=== PATIENT | female | born 1950 | race Caucasian/White ===

== ENCOUNTER 2021-06-09 10:10 | Inpatient (IN) | payer OTHER ==
[2021-06-09] VITALS (32 sets, daily range): BP systolic 66–142; BP diastolic 28–83
[~2021-06-09] VITALS: Ht 170.2 cm; Wt 162.3 kg
[2021-06-09 11:00] LABS: Basophils # (auto) 0.1 10 ^3/uL (0-0.2); Basophils % (auto) 0.3 % (0.0-2.0); Eosinophils # (auto) 0 10 ^3/uL (0-0.8); Hematocrit 35.4 % (36.0-46.0); Hemoglobin 10.6 g/dL (12.2-16.2); Lymphocytes # (auto) 0.2 10 ^3/uL (0.4-5.4); Lymphocytes % (auto) 1.3 % (10.0-50.0); Mean Corpuscular Hgb Conc. 29.9 g/dL (32.0-36.0); Mean Corpuscular Volume 86.8 fL (80.0-100.0); Monocytes # (auto) 1.1 10 ^3/uL (0-1.3); Neutrophils % (auto) 92.4 % (37.0-80.0); Nucleated Red Blood Cells % 0.1 %; Red Blood Cells 4.08 10^6/uL (4.0-5.20); Red Cell Distribution Width 18.6 % (11.8-14.3); White Blood Cell 18.4 10^3/uL (4.4-10.8)
[2021-06-09] MEDS ORDERED: SUCCINYLCHOLINE CHLORIDE 20 MG/ML 10ML VIAL IV ONE ×6 (11:08→19:15)
[2021-06-09] MEDS ORDERED: ETOMIDATE (2MG/ML) 20ML VIAL IV ONE ×3 (11:08→15:15)
[2021-06-09] MEDS ORDERED: MIDAZOLAM DRIP 50 mg/50mL 50 ML IV ONE (11:09)
[2021-06-09] MEDS ORDERED: NOREPINEPHRINE 8 MG/250ML KIT 0 ML IV ONE (11:09)
[2021-06-09 11:18] LABS: Albumin 2.5 g/dL (3.4-5.0); Calcium 8.9 mg/dL (8.5-10.1); Potassium 4.7 mmol/L (3.5-5.1)
[2021-06-09 11:23] LABS: BUN/Creatinine Ratio 22.2; Bilirubin, Total 0.7 mg/dL (0.2-1.0); Total Protein 7.3 g/dL (6.4-8.2)
[2021-06-09] MEDS ORDERED: FUROSEMIDE 20 MG/2 ML VIAL IV ONE (11:30)
[2021-06-09] MEDS ORDERED: FUROSEMIDE 40 MG/4 ML VIAL IV ONE (11:30)
[2021-06-09] MEDS ORDERED: cefTRIAXone 1GM/50ML D5W 50 ML IV ONE (11:30)
[2021-06-09] MEDS ORDERED: SODIUM CHLORIDE 0.9% 500 ML IVB ONE (11:30)
[2021-06-09 12:07] LABS: Urine Bacteria FEW /hpf (None Seen); Urine Blood 2+ /uL (Negative); Urine Hyaline Cast FEW /lpf (0 - 2); Urine Mucus FEW (None Seen); Urine Specific Gravity 1.023 (1.001-1.035); Urine WBC 3 /hpf (0 - 5)
[2021-06-09] MEDS ORDERED: MORPHINE SULFATE INJECTION 2 MG/ML SYRG IV PRN ×3 (13:30→16:30)
[2021-06-09] MEDS ORDERED: NITROGLYCERIN 0.4 MG SL TAB SL PRN ×2 (13:30→16:30)
[2021-06-09] MEDS ORDERED: NOREPINEPHRINE 8 MG/250ML KIT 250 ML IV ONE (14:39)
[2021-06-09] MEDS: MIDAZOLAM DRIP 50 mg/50mL 50 ML IV SCH ×3 (14:41→21:03)
[2021-06-09] MEDS ORDERED: PROPOFOL 100 ML IV ONE (14:41)
[2021-06-09] MEDS: fentaNYL Drip 2500mCg/250mlNS 250 ML IV SCH ×2 (14:41→15:15)
[2021-06-09] MEDS: PROPOFOL 100 ML IV SCH ×4 (14:41→22:54)
[2021-06-09] MEDS ORDERED: fentaNYL Drip 2500mCg/250mlNS 250 ML IV ONE (15:11)
[2021-06-09] MEDS ORDERED: DEXTROSE (50%) 50ML SYRG IV PRN (16:15)
[2021-06-09] MEDS: SODIUM CHLORIDE 0.9% 1,000 ML IV SCH (16:15)
[2021-06-09] MEDS ORDERED: FAMOTIDINE (10MG/ML) 2ML VL IV ONE (16:15)
[2021-06-09] MEDS ORDERED: ALBUTEROL SULF 2.5 MG/0.5ML(0.5%) NEB SOLN NEB ONE (16:15)
[2021-06-09] MEDS ORDERED: methylPREDNISolone SOD SUCC 125 MG/2 ML VL IV ONE (16:15)
[2021-06-09] MEDS ORDERED: hydrALAZINE HCL 20 MG/ML VL IV PRN (16:15)
[2021-06-09] MEDS ORDERED: ACETAMINOPHEN 325 MG TAB PO PRN ×2 (16:15→16:30)
[2021-06-09] MEDS ORDERED: IPRATROPIUM BROM 0.5 MG/2.5ML INH SOL NEB ONE (16:15)
[2021-06-09] MEDS ORDERED: BUDESONIDE (INHALATION) 0.5 MG/2 ML NEB NEB ONE (16:15)
[2021-06-09] MEDS ORDERED: VANCOMYCIN PER PHARMACY 1,000 MG IV SCH (16:15)
[2021-06-09] MEDS ORDERED: MORPHINE SULFATE 4 MG/ML SYR/VIAL IV PRN (16:15)
[2021-06-09] MEDS ORDERED: LORazepam 2MG/ML-1ML VIAL IV PRN (16:15)
[2021-06-09] MEDS ORDERED: LORazepam 0.5 MG TAB PO PRN (16:30)
[2021-06-09] MEDS ORDERED: HYDROcodone-ACET 5/325MG TAB PO PRN (16:30)
[2021-06-09] MEDS ORDERED: DOCUSATE SOD 100 MG CAP PO PRN (16:30)
[2021-06-09] MEDS ORDERED: ONDANSETRON HCL 4 MG/2 ML VIAL IV PRN (16:30)
[2021-06-09] MEDS ORDERED: ALUM & MAG HYDROX-SIMETH LIQ(MAALOX) 30 ML PO PRN (16:30)
[2021-06-09] MEDS ORDERED: MIDAZOLAM DRIP 50 mg/50mL 50 ML IV SCH (16:45)
[2021-06-09] MEDS ORDERED: VANCOMYCIN 1GM/250ML 250 ML IV SCH (17:00)
[2021-06-09] MEDS: ACCU-CHEK COMFORT CURVE STRIP VI SCH ×2 (17:00→21:43)
[2021-06-09] MEDS: InsuLIN REG 1unit/0.01ml Soln (100units/ml) SC SCH ×2 (17:00→21:47)
[2021-06-09] MEDS: PIPERACILLIN-TAZOB 3.375GM 100 ML IV SCH (18:00)
[2021-06-09] MEDS: IPRATROPIUM BROM 0.5 MG/2.5ML INH SOL NEB PRN ×2 (18:03→22:04)
[2021-06-09] MEDS: ALBUTEROL SULF 2.5 MG/0.5ML(0.5%) NEB SOLN NEB SCH ×2 (18:03→22:03)
[2021-06-09] MEDS ORDERED: SODIUM CHLORIDE 0.9% 4,750 ML IV ONE (19:15)
[2021-06-09] MEDS: VANCOMYCIN 1GM/250ML 250 ML IV SCH (21:40)
[2021-06-09] MEDS: methylPREDNISolone SOD SUCC 40 MG/ML VL IV SCH (21:41)
[2021-06-09] MEDS: APIXABAN 2.5 MG TAB PO SCH (21:42)
[2021-06-09] MEDS: NYSTATIN TOPICAL POWDER 15GM TOP SCH (22:00)
[2021-06-09] MEDS ORDERED: ENOXAPARIN SOD 40 MG/0.4 ML SYRINGE SC SCH (22:00)
[2021-06-09] MEDS: BUDESONIDE (INHALATION) 0.5 MG/2 ML NEB NEB SCH (22:03)
[2021-06-09] MEDS: NOREPINEPHRINE 8 MG/250ML KIT 250 ML IV SCH (23:40)
[2021-06-10] VITALS (98 sets, daily range): BP systolic 87–154; BP diastolic 36–75
[2021-06-10] MEDS: MIDAZOLAM DRIP 50 mg/50mL 50 ML IV SCH ×4 (00:45→22:00)
[2021-06-10] MEDS: fentaNYL Drip 2500mCg/250mlNS 250 ML IV SCH ×2 (01:15→18:00)
[2021-06-10] MEDS: ALBUTEROL SULF 2.5 MG/0.5ML(0.5%) NEB SOLN NEB SCH ×6 (02:19→22:12)
[2021-06-10] MEDS: VANCOMYCIN 1GM/250ML 250 ML IV SCH ×3 (05:00→21:00)
[2021-06-10] MEDS: PROPOFOL 100 ML IV SCH ×5 (05:14→21:00)
[2021-06-10] MEDS: PIPERACILLIN-TAZOB 3.375GM 100 ML IV SCH ×4 (06:00→17:22)
[2021-06-10] MEDS: methylPREDNISolone SOD SUCC 40 MG/ML VL IV SCH ×3 (06:00→22:00)
[2021-06-10] MEDS: ACCU-CHEK COMFORT CURVE STRIP VI SCH ×4 (06:55→22:00)
[2021-06-10] MEDS: InsuLIN REG 1unit/0.01ml Soln (100units/ml) SC SCH ×4 (06:55→22:00)
[2021-06-10 07:06] LABS: Basophils # (auto) 0 10 ^3/uL (0-0.2); Basophils % (auto) 0.2 % (0.0-2.0); Eosinophils # (auto) 0 10 ^3/uL (0-0.8); Eosinophils % (auto) 0.1 % (0.0-7.0); Hematocrit 34.1 % (36.0-46.0); Hemoglobin 10.5 g/dL (12.2-16.2); Lymphocytes # (auto) 0.4 10 ^3/uL (0.4-5.4); Lymphocytes % (auto) 2.2 % (10.0-50.0); Mean Corpuscular Hemoglobin 25.5 pg (28.0-32.0); Mean Corpuscular Hgb Conc. 30.7 g/dL (32.0-36.0); Monocytes # (auto) 0.7 10 ^3/uL (0-1.3); Monocytes % (auto) 3.5 % (0.0-12.0); Neutrophils # (auto) 18.4 10 ^3/uL (1.6-8.6); Nucleated Red Blood Cells % 0.1 %; Red Cell Distribution Width 18.5 % (11.8-14.3); White Blood Cell 19.5 10^3/uL (4.4-10.8)
[2021-06-10 07:19] LABS: Potassium 4.1 mmol/L (3.5-5.1)
[2021-06-10 07:21] LABS: INR 1.27 (0.9-1.15); Partial Thromboplastin Time 45.3 sec (23.6-33.0)
[2021-06-10 07:35] LABS: Albumin 2.3 g/dL (3.4-5.0); BUN/Creatinine Ratio 25.4; Calcium 8.4 mg/dL (8.5-10.1); Magnesium 2.7 mg/dL (1.6-2.6); Phosphorus 2.2 mg/dL (2.5-4.90); Total Protein 6.8 g/dL (6.4-8.2); Uric Acid 7.3 mg/dL (2.6-6.0)
[2021-06-10] MEDS: BUDESONIDE (INHALATION) 0.5 MG/2 ML NEB NEB SCH ×2 (07:54→18:02)
[2021-06-10] MEDS: SODIUM CHLORIDE 0.9% 1,000 ML IV SCH (08:55)
[2021-06-10] MEDS: dilTIAZem 120MG ER CAP PO SCH (10:00)
[2021-06-10] MEDS: NYSTATIN TOPICAL POWDER 15GM TOP SCH ×2 (10:00→22:00)
[2021-06-10] MEDS: FAMOTIDINE (10MG/ML) 2ML VL IV SCH ×2 (10:10→22:00)
[2021-06-10] MEDS: APIXABAN 2.5 MG TAB PO SCH ×2 (10:11→22:00)
[2021-06-10] MEDS: IPRATROPIUM BROM 0.5 MG/2.5ML INH SOL NEB PRN ×4 (14:19→22:12)
[2021-06-10 15:35] LABS: Barbiturate Scree,Urine NEGATIVE (NEGATIVE); Benzodiazephine Screen, Urine POSITIVE (NEGATIVE); Cannabinoid Screen, Urine NEGATIVE (NEGATIVE); Cocaine Screen, Urine NEGATIVE (NEGATIVE); Phencyclidine Screen, Urine NEGATIVE (NEGATIVE)
[2021-06-10 15:42] LABS: Amphetamine Screen, Urine NEGATIVE (NEGATIVE); Opiate Scree,Urine NEGATIVE (NEGATIVE)
[2021-06-10 17:16] LABS: Urine Bacteria FEW /hpf (None Seen); Urine Blood 2+ /uL (Negative); Urine Mucus FEW (None Seen); Urine Specific Gravity 1.013 (1.001-1.035); Urine WBC 13 /hpf (0 - 5)
[2021-06-10] MEDS: NOREPINEPHRINE 8 MG/250ML KIT 250 ML IV SCH (21:34)
[2021-06-11] VITALS (105 sets, daily range): BP systolic 94–135; BP diastolic 39–65
[2021-06-11] MEDS: PROPOFOL 100 ML IV SCH ×6 (00:38→22:03)
[2021-06-11] MEDS: SODIUM CHLORIDE 0.9% 1,000 ML IV SCH (01:35)
[2021-06-11] MEDS: ALBUTEROL SULF 2.5 MG/0.5ML(0.5%) NEB SOLN NEB SCH ×5 (02:02→19:20)
[2021-06-11 03:59] LABS: Eosinophils # (auto) 0 10 ^3/uL (0-0.8); White Blood Cell 19.9 10^3/uL (4.4-10.8)
[2021-06-11 04:02] LABS: Basophils # (auto) 0.2 10 ^3/uL (0-0.2); Basophils % (auto) 0.8 % (0.0-2.0); Hematocrit 32.2 % (36.0-46.0); Lymphocytes # (auto) 0.5 10 ^3/uL (0.4-5.4); Lymphocytes % (auto) 2.3 % (10.0-50.0); Mean Corpuscular Hemoglobin 25.3 pg (28.0-32.0); Mean Corpuscular Hgb Conc. 31.1 g/dL (32.0-36.0); Mean Corpuscular Volume 81.3 fL (80.0-100.0); Neutrophils # (auto) 18.3 10 ^3/uL (1.6-8.6); Neutrophils % (auto) 91.9 % (37.0-80.0); Red Blood Cells 3.96 10^6/uL (4.0-5.20); Red Cell Distribution Width 18.7 % (11.8-14.3)
[2021-06-11 04:19] LABS: BUN/Creatinine Ratio 27.4; Calcium 8.3 mg/dL (8.5-10.1); Potassium 3.7 mmol/L (3.5-5.1)
[2021-06-11] MEDS: VANCOMYCIN 1GM/250ML 250 ML IV SCH ×2 (05:00→15:03)
[2021-06-11] MEDS: PIPERACILLIN-TAZOB 3.375GM 100 ML IV SCH ×3 (06:00→12:28)
[2021-06-11] MEDS: methylPREDNISolone SOD SUCC 40 MG/ML VL IV SCH ×2 (06:00→12:29)
[2021-06-11] MEDS: MIDAZOLAM DRIP 50 mg/50mL 50 ML IV SCH ×5 (06:22→23:55)
[2021-06-11] MEDS: IPRATROPIUM BROM 0.5 MG/2.5ML INH SOL NEB PRN ×4 (06:24→19:21)
[2021-06-11] MEDS: InsuLIN REG 1unit/0.01ml Soln (100units/ml) SC SCH ×4 (07:00→22:00)
[2021-06-11] MEDS: ACCU-CHEK COMFORT CURVE STRIP VI SCH ×4 (07:19→22:00)
[2021-06-11] MEDS: dilTIAZem 120MG ER CAP PO SCH (10:00)
[2021-06-11] MEDS: BUDESONIDE (INHALATION) 0.5 MG/2 ML NEB NEB SCH (10:12)
[2021-06-11] MEDS: FAMOTIDINE (10MG/ML) 2ML VL IV SCH ×2 (12:13→22:00)
[2021-06-11] MEDS: APIXABAN 2.5 MG TAB PO SCH ×2 (12:14→22:00)
[2021-06-11] MEDS: NYSTATIN TOPICAL POWDER 15GM TOP SCH ×2 (12:14→22:00)
[2021-06-11] MEDS ORDERED: FUROSEMIDE 20 MG/2 ML VIAL IV ONE (14:15)
[2021-06-11] MEDS: fentaNYL Drip 2500mCg/250mlNS 250 ML IV SCH (15:00)
[2021-06-11] MEDS: Glucerna 1.2 Cal 1Liter BOTTLE GT SCH (20:00)
[2021-06-11] MEDS: NOREPINEPHRINE 8 MG/250ML KIT 250 ML IV SCH (22:30)
[2021-06-12] VITALS (101 sets, daily range): BP systolic 84–125; BP diastolic 37–65
[2021-06-12] MEDS: ALBUTEROL SULF 2.5 MG/0.5ML(0.5%) NEB SOLN NEB SCH ×4 (00:07→17:51)
[2021-06-12] MEDS: VANCOMYCIN 1GM/250ML 250 ML IV SCH (01:26)
[2021-06-12] MEDS: MIDAZOLAM DRIP 50 mg/50mL 50 ML IV SCH ×3 (01:50→10:30)
[2021-06-12] MEDS: fentaNYL Drip 2500mCg/250mlNS 250 ML IV SCH ×2 (02:02→15:00)
[2021-06-12] MEDS: PROPOFOL 100 ML IV SCH ×3 (02:02→12:15)
[2021-06-12 04:21] LABS: Basophils # (auto) 0 10 ^3/uL (0-0.2); Eosinophils # (auto) 0 10 ^3/uL (0-0.8); Hemoglobin 9.8 g/dL (12.2-16.2); Lymphocytes # (auto) 0.6 10 ^3/uL (0.4-5.4); Nucleated Red Blood Cells % 0.1 %
[2021-06-12 04:23] LABS: Basophils % (auto) 0.1 % (0.0-2.0); Hematocrit 31.3 % (36.0-46.0); Mean Corpuscular Hemoglobin 25.7 pg (28.0-32.0); Mean Corpuscular Hgb Conc. 31.5 g/dL (32.0-36.0); Mean Corpuscular Volume 81.7 fL (80.0-100.0); Monocytes % (auto) 10.3 % (0.0-12.0); Neutrophils # (auto) 16.8 10 ^3/uL (1.6-8.6); Neutrophils % (auto) 86.6 % (37.0-80.0); Red Blood Cells 3.83 10^6/uL (4.0-5.20); Red Cell Distribution Width 18.8 % (11.8-14.3); White Blood Cell 19.4 10^3/uL (4.4-10.8)
[2021-06-12 04:54] LABS: BUN/Creatinine Ratio 26.5; Calcium 7.8 mg/dL (8.5-10.1); Potassium 3.6 mmol/L (3.5-5.1)
[2021-06-12] MEDS: IPRATROPIUM BROM 0.5 MG/2.5ML INH SOL NEB PRN ×3 (06:01→17:51)
[2021-06-12] MEDS: InsuLIN REG 1unit/0.01ml Soln (100units/ml) SC SCH ×4 (07:14→22:50)
[2021-06-12] MEDS: ACCU-CHEK COMFORT CURVE STRIP VI SCH ×4 (07:15→22:49)
[2021-06-12] MEDS: FUROSEMIDE 20 MG/2 ML VIAL IV SCH (09:49)
[2021-06-12] MEDS: NYSTATIN TOPICAL POWDER 15GM TOP SCH ×2 (09:50→21:55)
[2021-06-12] MEDS: APIXABAN 2.5 MG TAB PO SCH ×2 (09:50→21:54)
[2021-06-12] MEDS: levoFLOXacin 500MG 100 ML IV SCH (09:50)
[2021-06-12] MEDS: FAMOTIDINE (10MG/ML) 2ML VL IV SCH ×2 (09:50→21:53)
[2021-06-12] MEDS ORDERED: DILT60TA PO (13:08)
[2021-06-12] MEDS ORDERED: METH2.5T PO (13:12)
[2021-06-12] MEDS ORDERED: FOLI1TAB6 PO (13:12)
[2021-06-12] MEDS ORDERED: DABI150C5 PO (13:12)
[2021-06-12] MEDS ORDERED: LOSA25TA38 PO (13:12)
[2021-06-12] MEDS: NOREPINEPHRINE 8 MG/250ML KIT 250 ML IV SCH (19:45)
[2021-06-12] MEDS: VANCOMYCIN 750mg/250ml 250 ML IV SCH (21:54)
[2021-06-13] VITALS (99 sets, daily range): BP systolic 87–134; BP diastolic 27–66
[2021-06-13] MEDS: IPRATROPIUM BROM 0.5 MG/2.5ML INH SOL NEB PRN ×2 (00:27→06:19)
[2021-06-13] MEDS: ALBUTEROL SULF 2.5 MG/0.5ML(0.5%) NEB SOLN NEB SCH ×4 (00:27→18:00)
[2021-06-13] MEDS: ACCU-CHEK COMFORT CURVE STRIP VI SCH ×4 (05:42→20:19)
[2021-06-13] MEDS: InsuLIN REG 1unit/0.01ml Soln (100units/ml) SC SCH ×4 (05:42→20:19)
[2021-06-13] MEDS: fentaNYL Drip 2500mCg/250mlNS 250 ML IV SCH ×2 (06:45→19:15)
[2021-06-13 06:52] LABS: Calcium 7.9 mg/dL (8.5-10.1); Potassium 3.3 mmol/L (3.5-5.1)
[2021-06-13 06:54] LABS: Basophils # (auto) 0 10 ^3/uL (0-0.2); Basophils % (auto) 0.1 % (0.0-2.0); Eosinophils # (auto) 0.2 10 ^3/uL (0-0.8); Eosinophils % (auto) 1.1 % (0.0-7.0); Hematocrit 31.6 % (36.0-46.0); Lymphocytes # (auto) 1.6 10 ^3/uL (0.4-5.4); Lymphocytes % (auto) 10.2 % (10.0-50.0); Mean Corpuscular Hemoglobin 25.8 pg (28.0-32.0); Mean Corpuscular Hgb Conc. 31.5 g/dL (32.0-36.0); Mean Corpuscular Volume 81.8 fL (80.0-100.0); Monocytes # (auto) 2.3 10 ^3/uL (0-1.3); Monocytes % (auto) 14.2 % (0.0-12.0); Neutrophils % (auto) 74.4 % (37.0-80.0); Nucleated Red Blood Cells % 0.1 %; Red Blood Cells 3.86 10^6/uL (4.0-5.20); Red Cell Distribution Width 18.5 % (11.8-14.3); White Blood Cell 16.1 10^3/uL (4.4-10.8)
[2021-06-13 06:57] LABS: BUN/Creatinine Ratio 34.4; Bilirubin, Total 0.8 mg/dL (0.2-1.0); Total Protein 5.4 g/dL (6.4-8.2)
[2021-06-13] MEDS: APIXABAN 2.5 MG TAB PO SCH ×2 (10:45→21:56)
[2021-06-13] MEDS: NYSTATIN TOPICAL POWDER 15GM TOP SCH ×2 (10:45→22:06)
[2021-06-13] MEDS: FAMOTIDINE (10MG/ML) 2ML VL IV SCH ×2 (10:45→21:56)
[2021-06-13] MEDS: levoFLOXacin 500MG 100 ML IV SCH (10:45)
[2021-06-13] MEDS ORDERED: POTASSIUM EFFERVESENT TAB 25 MEQ GT ONE (12:45)
[2021-06-13] MEDS ORDERED: METOCLOPRAMIDE HCL 5MG/ml INJ 2ml VIAL IV ONE (13:00)
[2021-06-13] MEDS: PROPOFOL 100 ML IV SCH ×2 (13:06→19:42)
[2021-06-13] MEDS: MIDAZOLAM DRIP 50 mg/50mL 50 ML IV SCH (13:06)
[2021-06-13] MEDS: FUROSEMIDE 20 MG/2 ML VIAL IV SCH (15:37)
[2021-06-13] MEDS: NOREPINEPHRINE 8 MG/250ML KIT 250 ML IV SCH (19:45)
[2021-06-13] MEDS: METOCLOPRAMIDE HCL 5MG/ml INJ 2ml VIAL IV SCH (21:55)
[2021-06-13] MEDS: SODIUM CHLOR 0.9% PF (SALINE LOCK) 10ML VIAL/SYR IV SCH (21:56)
[2021-06-13] MEDS: VANCOMYCIN 750mg/250ml 250 ML IV SCH (23:45)
[2021-06-14] VITALS (105 sets, daily range): BP systolic 88–130; BP diastolic 25–76
[2021-06-14] MEDS: PROPOFOL 100 ML IV SCH ×5 (00:04→23:21)
[2021-06-14] MEDS: ALBUTEROL SULF 2.5 MG/0.5ML(0.5%) NEB SOLN NEB SCH ×5 (00:14→23:57)
[2021-06-14] MEDS: IPRATROPIUM BROM 0.5 MG/2.5ML INH SOL NEB PRN ×4 (00:14→23:57)
[2021-06-14] MEDS: fentaNYL Drip 2500mCg/250mlNS 250 ML IV SCH ×2 (04:00→18:34)
[2021-06-14 04:33] LABS: Basophils # (auto) 0.1 10 ^3/uL (0-0.2); Monocytes # (auto) 1.8 10 ^3/uL (0-1.3)
[2021-06-14 04:35] LABS: Basophils % (auto) 0.3 % (0.0-2.0); Eosinophils # (auto) 0.3 10 ^3/uL (0-0.8); Eosinophils % (auto) 2.1 % (0.0-7.0); Hematocrit 31.5 % (36.0-46.0); Hemoglobin 9.7 g/dL (12.2-16.2); Lymphocytes # (auto) 1.1 10 ^3/uL (0.4-5.4); Lymphocytes % (auto) 6.9 % (10.0-50.0); Mean Corpuscular Hemoglobin 25.1 pg (28.0-32.0); Mean Corpuscular Hgb Conc. 30.9 g/dL (32.0-36.0); Mean Corpuscular Volume 81.3 fL (80.0-100.0); Monocytes % (auto) 11.2 % (0.0-12.0); Neutrophils # (auto) 12.8 10 ^3/uL (1.6-8.6); Neutrophils % (auto) 79.5 % (37.0-80.0); Nucleated Red Blood Cells % 0.1 %; Red Blood Cells 3.87 10^6/uL (4.0-5.20); Red Cell Distribution Width 18.9 % (11.8-14.3); White Blood Cell 16.1 10^3/uL (4.4-10.8)
[2021-06-14 04:49] LABS: BUN/Creatinine Ratio 31.2; Calcium 7.9 mg/dL (8.5-10.1); Potassium 3.8 mmol/L (3.5-5.1)
[2021-06-14] MEDS: NOREPINEPHRINE 8 MG/250ML KIT 250 ML IV SCH ×2 (06:01→20:10)
[2021-06-14] MEDS: METOCLOPRAMIDE HCL 5MG/ml INJ 2ml VIAL IV SCH ×3 (06:04→21:52)
[2021-06-14] MEDS: ACCU-CHEK COMFORT CURVE STRIP VI SCH ×4 (06:06→21:53)
[2021-06-14] MEDS: InsuLIN REG 1unit/0.01ml Soln (100units/ml) SC SCH ×4 (06:08→23:11)
[2021-06-14] MEDS: NYSTATIN TOPICAL POWDER 15GM TOP SCH ×2 (09:53→21:53)
[2021-06-14] MEDS: FAMOTIDINE (10MG/ML) 2ML VL IV SCH ×2 (09:53→21:52)
[2021-06-14] MEDS: APIXABAN 2.5 MG TAB PO SCH ×2 (09:53→21:52)
[2021-06-14] MEDS: POTASSIUM EFFERVESENT TAB 25 MEQ GT SCH (09:53)
[2021-06-14] MEDS: FUROSEMIDE 20 MG/2 ML VIAL IV SCH (09:53)
[2021-06-14] MEDS: SODIUM CHLOR 0.9% PF (SALINE LOCK) 10ML VIAL/SYR IV SCH ×2 (09:53→21:52)
[2021-06-14] MEDS: levoFLOXacin 500MG 100 ML IV SCH (09:53)
[2021-06-14] MEDS: VANCOMYCIN 1GM/250ML 250 ML IV SCH (14:35)
[2021-06-14] MEDS: MIDAZOLAM DRIP 50 mg/50mL 50 ML IV SCH (16:30)
[2021-06-15] VITALS (102 sets, daily range): BP systolic 86–140; BP diastolic 24–59
[2021-06-15 04:37] LABS: Basophils # (auto) 0.1 10 ^3/uL (0-0.2); Eosinophils # (auto) 0.4 10 ^3/uL (0-0.8); Hematocrit 32.5 % (36.0-46.0); Hemoglobin 9.9 g/dL (12.2-16.2)
[2021-06-15 04:39] LABS: Basophils % (auto) 0.5 % (0.0-2.0); Eosinophils % (auto) 2.2 % (0.0-7.0); Lymphocytes # (auto) 1.2 10 ^3/uL (0.4-5.4); Lymphocytes % (auto) 6.5 % (10.0-50.0); Mean Corpuscular Hemoglobin 24.8 pg (28.0-32.0); Mean Corpuscular Hgb Conc. 30.5 g/dL (32.0-36.0); Mean Corpuscular Volume 81.4 fL (80.0-100.0); Monocytes # (auto) 2.5 10 ^3/uL (0-1.3); Monocytes % (auto) 13.6 % (0.0-12.0); Neutrophils # (auto) 14.2 10 ^3/uL (1.6-8.6); Neutrophils % (auto) 77.2 % (37.0-80.0); Red Blood Cells 3.99 10^6/uL (4.0-5.20); Red Cell Distribution Width 19.1 % (11.8-14.3); White Blood Cell 18.4 10^3/uL (4.4-10.8)
[2021-06-15 05:03] LABS: Potassium 4.1 mmol/L (3.5-5.1)
[2021-06-15 05:09] LABS: Albumin 1.8 g/dL (3.4-5.0); BUN/Creatinine Ratio 33.3; Calcium 8.1 mg/dL (8.5-10.1)
[2021-06-15 05:16] LABS: Bilirubin, Total 1.2 mg/dL (0.2-1.0); Total Protein 5.2 g/dL (6.4-8.2)
[2021-06-15] MEDS: ACCU-CHEK COMFORT CURVE STRIP VI SCH ×4 (06:22→21:44)
[2021-06-15] MEDS: InsuLIN REG 1unit/0.01ml Soln (100units/ml) SC SCH ×4 (06:22→21:45)
[2021-06-15] MEDS: METOCLOPRAMIDE HCL 5MG/ml INJ 2ml VIAL IV SCH ×3 (06:22→21:41)
[2021-06-15] MEDS: ALBUTEROL SULF 2.5 MG/0.5ML(0.5%) NEB SOLN NEB SCH ×3 (06:37→18:30)
[2021-06-15] MEDS: IPRATROPIUM BROM 0.5 MG/2.5ML INH SOL NEB PRN ×3 (06:37→18:30)
[2021-06-15] MEDS: PROPOFOL 100 ML IV SCH (06:42)
[2021-06-15] MEDS: fentaNYL Drip 2500mCg/250mlNS 250 ML IV SCH ×2 (08:45→10:00)
[2021-06-15] MEDS: levoFLOXacin 500MG 100 ML IV SCH (09:14)
[2021-06-15] MEDS: FUROSEMIDE 20 MG/2 ML VIAL IV SCH (09:14)
[2021-06-15] MEDS: VANCOMYCIN 1GM/250ML 250 ML IV SCH (09:14)
[2021-06-15] MEDS: FAMOTIDINE (10MG/ML) 2ML VL IV SCH ×2 (09:14→21:41)
[2021-06-15] MEDS: APIXABAN 2.5 MG TAB PO SCH ×2 (09:14→21:41)
[2021-06-15] MEDS: SODIUM CHLOR 0.9% PF (SALINE LOCK) 10ML VIAL/SYR IV SCH ×2 (09:15→21:41)
[2021-06-15] MEDS: NYSTATIN TOPICAL POWDER 15GM TOP SCH ×2 (09:15→21:44)
[2021-06-15] MEDS: POTASSIUM EFFERVESENT TAB 25 MEQ GT SCH (09:15)
[2021-06-15] MEDS ORDERED: DIGOXIN (250MCG/ML) 2 ML AMPULE IV ONE (11:30)
[2021-06-15] MEDS: MIDAZOLAM DRIP 50 mg/50mL 50 ML IV SCH (16:30)
[2021-06-16] VITALS (89 sets, daily range): BP systolic 93–167; BP diastolic 33–77
[2021-06-16] MEDS: VANCOMYCIN 1GM/250ML 250 ML IV SCH ×2 (02:16→16:00)
[2021-06-16] MEDS: ALBUTEROL SULF 2.5 MG/0.5ML(0.5%) NEB SOLN NEB SCH ×4 (03:49→18:03)
[2021-06-16 04:46] LABS: Hemoglobin 9.1 g/dL (12.2-16.2)
[2021-06-16 04:48] LABS: Basophils # (auto) 0.1 10 ^3/uL (0-0.2); Basophils % (auto) 0.4 % (0.0-2.0); Eosinophils # (auto) 0.2 10 ^3/uL (0-0.8); Eosinophils % (auto) 1.3 % (0.0-7.0); Hematocrit 29.9 % (36.0-46.0); Lymphocytes # (auto) 1.1 10 ^3/uL (0.4-5.4); Lymphocytes % (auto) 5.9 % (10.0-50.0); Mean Corpuscular Hemoglobin 24.8 pg (28.0-32.0); Mean Corpuscular Hgb Conc. 30.6 g/dL (32.0-36.0); Mean Corpuscular Volume 81.1 fL (80.0-100.0); Monocytes # (auto) 2.8 10 ^3/uL (0-1.3); Monocytes % (auto) 15.1 % (0.0-12.0); Neutrophils # (auto) 14.4 10 ^3/uL (1.6-8.6); Neutrophils % (auto) 77.3 % (37.0-80.0); Nucleated Red Blood Cells % 0.1 %; Red Blood Cells 3.68 10^6/uL (4.0-5.20); Red Cell Distribution Width 18.8 % (11.8-14.3); White Blood Cell 18.6 10^3/uL (4.4-10.8)
[2021-06-16 05:08] LABS: Potassium 4.2 mmol/L (3.5-5.1)
[2021-06-16 05:11] LABS: BUN/Creatinine Ratio 37.8
[2021-06-16] MEDS: IPRATROPIUM BROM 0.5 MG/2.5ML INH SOL NEB PRN ×2 (06:21→18:03)
[2021-06-16] MEDS: ACCU-CHEK COMFORT CURVE STRIP VI SCH ×4 (06:27→21:43)
[2021-06-16] MEDS: METOCLOPRAMIDE HCL 5MG/ml INJ 2ml VIAL IV SCH ×3 (06:27→21:35)
[2021-06-16] MEDS: InsuLIN REG 1unit/0.01ml Soln (100units/ml) SC SCH ×3 (06:29→21:43)
[2021-06-16] MEDS: POTASSIUM EFFERVESENT TAB 25 MEQ GT SCH (09:31)
[2021-06-16] MEDS: FUROSEMIDE 20 MG/2 ML VIAL IV SCH (09:32)
[2021-06-16] MEDS: FAMOTIDINE (10MG/ML) 2ML VL IV SCH ×2 (09:33→21:35)
[2021-06-16] MEDS: levoFLOXacin 500MG 100 ML IV SCH (09:33)
[2021-06-16] MEDS: APIXABAN 2.5 MG TAB PO SCH (09:33)
[2021-06-16] MEDS: NYSTATIN TOPICAL POWDER 15GM TOP SCH ×2 (09:33→21:36)
[2021-06-16] MEDS: SODIUM CHLOR 0.9% PF (SALINE LOCK) 10ML VIAL/SYR IV SCH ×2 (09:34→21:35)
[2021-06-16] MEDS: fentaNYL Drip 2500mCg/250mlNS 250 ML IV SCH ×2 (09:45→22:15)
[2021-06-16] MEDS: PROPOFOL 100 ML IV SCH (10:06)
[2021-06-16] MEDS: Glucerna 1.2 Cal 1Liter BOTTLE GT SCH (13:57)
[2021-06-16] MEDS ORDERED: FUROSEMIDE 20 MG/2 ML VIAL IV ONE (14:00)
[2021-06-16] MEDS: MIDAZOLAM DRIP 50 mg/50mL 50 ML IV SCH (16:30)
[2021-06-16] MEDS: NOREPINEPHRINE 8 MG/250ML KIT 250 ML IV SCH (19:45)
[2021-06-16] MEDS: APIXABAN 5 MG TAB PO SCH (21:35)
[2021-06-17] VITALS (94 sets, daily range): BP systolic 80–147; BP diastolic 27–69
[2021-06-17] MEDS: ALBUTEROL SULF 2.5 MG/0.5ML(0.5%) NEB SOLN NEB SCH ×2 (00:10→06:33)
[2021-06-17] MEDS: IPRATROPIUM BROM 0.5 MG/2.5ML INH SOL NEB PRN ×2 (00:10→06:33)
[2021-06-17 03:15] LABS: Eosinophils # (auto) 0.2 10 ^3/uL (0-0.8); Hematocrit 28.5 % (36.0-46.0); Hemoglobin 8.9 g/dL (12.2-16.2); Lymphocytes # (auto) 0.7 10 ^3/uL (0.4-5.4); Nucleated Red Blood Cells % 0.1 %
[2021-06-17 03:17] LABS: Basophils # (auto) 0 10 ^3/uL (0-0.2); Basophils % (auto) 0.3 % (0.0-2.0); Eosinophils % (auto) 1.2 % (0.0-7.0); Lymphocytes % (auto) 4.6 % (10.0-50.0); Mean Corpuscular Hemoglobin 25.4 pg (28.0-32.0); Mean Corpuscular Hgb Conc. 31.3 g/dL (32.0-36.0); Mean Corpuscular Volume 81.1 fL (80.0-100.0); Monocytes # (auto) 2.4 10 ^3/uL (0-1.3); Monocytes % (auto) 14.8 % (0.0-12.0); Neutrophils # (auto) 12.8 10 ^3/uL (1.6-8.6); Neutrophils % (auto) 79.1 % (37.0-80.0); Red Blood Cells 3.51 10^6/uL (4.0-5.20); Red Cell Distribution Width 18.7 % (11.8-14.3); White Blood Cell 16.2 10^3/uL (4.4-10.8)
[2021-06-17 03:29] LABS: Albumin 1.5 g/dL (3.4-5.0); BUN/Creatinine Ratio 37.8; Potassium 4.2 mmol/L (3.5-5.1)
[2021-06-17 03:32] LABS: Total Protein 4.9 g/dL (6.4-8.2)
[2021-06-17] MEDS: METOCLOPRAMIDE HCL 5MG/ml INJ 2ml VIAL IV SCH ×3 (06:00→22:22)
[2021-06-17] MEDS: VANCOMYCIN 1GM/250ML 250 ML IV SCH ×2 (06:00→21:16)
[2021-06-17] MEDS: InsuLIN REG 1unit/0.01ml Soln (100units/ml) SC SCH ×4 (06:13→22:44)
[2021-06-17] MEDS: ACCU-CHEK COMFORT CURVE STRIP VI SCH ×4 (06:13→22:23)
[2021-06-17] MEDS: fentaNYL Drip 2500mCg/250mlNS 250 ML IV SCH ×2 (06:59→23:15)
[2021-06-17] MEDS: POTASSIUM EFFERVESENT TAB 25 MEQ GT SCH (09:29)
[2021-06-17] MEDS: FAMOTIDINE (10MG/ML) 2ML VL IV SCH ×2 (09:32→22:22)
[2021-06-17] MEDS: SODIUM CHLOR 0.9% PF (SALINE LOCK) 10ML VIAL/SYR IV SCH ×2 (09:32→22:22)
[2021-06-17] MEDS: levoFLOXacin 500MG 100 ML IV SCH (09:32)
[2021-06-17] MEDS: APIXABAN 5 MG TAB PO SCH ×2 (09:33→22:22)
[2021-06-17] MEDS: NYSTATIN TOPICAL POWDER 15GM TOP SCH ×2 (09:34→22:23)
[2021-06-17] MEDS ORDERED: DIGOXIN (250MCG/ML) 2 ML AMPULE IV SCH (10:00)
[2021-06-17] MEDS ORDERED: FUROSEMIDE 20 MG/2 ML VIAL IV SCH (10:00)
[2021-06-17] MEDS: PROPOFOL 100 ML IV SCH (13:30)
[2021-06-17] MEDS: MIDAZOLAM DRIP 50 mg/50mL 50 ML IV SCH (16:30)
[2021-06-17] MEDS: LEVALBUTEROL HCL 1.25 MG/3 ML NEB NEB SCH ×2 (17:14→18:09)
[2021-06-17] MEDS: NOREPINEPHRINE 8 MG/250ML KIT 250 ML IV SCH (19:45)
[2021-06-17] MEDS: FUROSEMIDE 20 MG/2 ML VIAL IV SCH (22:21)
[2021-06-18] VITALS (101 sets, daily range): BP systolic 87–159; BP diastolic 33–69
[2021-06-18] MEDS: PROPOFOL 100 ML IV SCH ×3 (00:45→17:38)
[2021-06-18 04:18] LABS: Basophils # (auto) 0.1 10 ^3/uL (0-0.2); Basophils % (auto) 0.8 % (0.0-2.0); Eosinophils # (auto) 0.3 10 ^3/uL (0-0.8); Hematocrit 28.6 % (36.0-46.0); Hemoglobin 8.8 g/dL (12.2-16.2); Lymphocytes % (auto) 7.2 % (10.0-50.0); Mean Corpuscular Hemoglobin 24.9 pg (28.0-32.0); Mean Corpuscular Hgb Conc. 30.8 g/dL (32.0-36.0); Mean Corpuscular Volume 80.8 fL (80.0-100.0); Monocytes # (auto) 2.3 10 ^3/uL (0-1.3); Monocytes % (auto) 17.7 % (0.0-12.0); Neutrophils # (auto) 9.6 10 ^3/uL (1.6-8.6); Neutrophils % (auto) 72.3 % (37.0-80.0); Nucleated Red Blood Cells % 0.1 %; Red Blood Cells 3.54 10^6/uL (4.0-5.20); Red Cell Distribution Width 18.9 % (11.8-14.3); White Blood Cell 13.2 10^3/uL (4.4-10.8)
[2021-06-18 04:37] LABS: BUN/Creatinine Ratio 44.7; Calcium 8.2 mg/dL (8.5-10.1); Potassium 3.6 mmol/L (3.5-5.1)
[2021-06-18] MEDS: METOCLOPRAMIDE HCL 5MG/ml INJ 2ml VIAL IV SCH ×3 (06:47→22:57)
[2021-06-18] MEDS: InsuLIN REG 1unit/0.01ml Soln (100units/ml) SC SCH ×4 (06:59→23:10)
[2021-06-18] MEDS: ACCU-CHEK COMFORT CURVE STRIP VI SCH ×4 (06:59→22:59)
[2021-06-18] MEDS: POTASSIUM EFFERVESENT TAB 25 MEQ GT SCH (10:01)
[2021-06-18] MEDS: levoFLOXacin 500MG 100 ML IV SCH (10:02)
[2021-06-18] MEDS: FUROSEMIDE 20 MG/2 ML VIAL IV SCH ×2 (10:02→22:57)
[2021-06-18] MEDS: NYSTATIN TOPICAL POWDER 15GM TOP SCH ×2 (10:03→22:59)
[2021-06-18] MEDS: FAMOTIDINE (10MG/ML) 2ML VL IV SCH ×2 (10:03→22:57)
[2021-06-18] MEDS: APIXABAN 5 MG TAB PO SCH ×2 (10:03→22:58)
[2021-06-18] MEDS: DIGOXIN 0.125 MG TAB PO SCH (10:03)
[2021-06-18] MEDS: SODIUM CHLOR 0.9% PF (SALINE LOCK) 10ML VIAL/SYR IV SCH ×2 (10:03→22:58)
[2021-06-18] MEDS: VANCOMYCIN 1GM/250ML 250 ML IV SCH (10:16)
[2021-06-18] MEDS: fentaNYL Drip 2500mCg/250mlNS 250 ML IV SCH ×2 (11:45→19:12)
[2021-06-18] MEDS: LEVALBUTEROL HCL 1.25 MG/3 ML NEB NEB SCH ×3 (15:55→18:22)
[2021-06-18] MEDS: MIDAZOLAM DRIP 50 mg/50mL 50 ML IV SCH (16:30)
[2021-06-18] MEDS: IPRATROPIUM BROM 0.5 MG/2.5ML INH SOL NEB PRN (18:22)
[2021-06-18] MEDS: NOREPINEPHRINE 8 MG/250ML KIT 250 ML IV SCH (19:00)
[2021-06-19] VITALS (102 sets, daily range): BP systolic 80–173; BP diastolic 31–79
[2021-06-19] MEDS: LEVALBUTEROL HCL 1.25 MG/3 ML NEB NEB SCH ×4 (00:20→18:59)
[2021-06-19] MEDS: IPRATROPIUM BROM 0.5 MG/2.5ML INH SOL NEB PRN ×4 (00:20→19:00)
[2021-06-19] MEDS: VANCOMYCIN 1GM/250ML 250 ML IV SCH ×2 (00:23→14:34)
[2021-06-19] MEDS: PROPOFOL 100 ML IV SCH ×4 (00:25→18:01)
[2021-06-19 04:00] LABS: Basophils # (auto) 0 10 ^3/uL (0-0.2); Eosinophils # (auto) 0.1 10 ^3/uL (0-0.8); Hemoglobin 8.9 g/dL (12.2-16.2)
[2021-06-19 04:01] LABS: Basophils % (auto) 0.4 % (0.0-2.0); Eosinophils % (auto) 0.9 % (0.0-7.0); Hematocrit 28.5 % (36.0-46.0); Lymphocytes % (auto) 8.4 % (10.0-50.0); Mean Corpuscular Hemoglobin 24.7 pg (28.0-32.0); Mean Corpuscular Hgb Conc. 31.1 g/dL (32.0-36.0); Mean Corpuscular Volume 79.5 fL (80.0-100.0); Monocytes % (auto) 16.4 % (0.0-12.0); Neutrophils # (auto) 8.9 10 ^3/uL (1.6-8.6); Neutrophils % (auto) 73.9 % (37.0-80.0); Nucleated Red Blood Cells % 0.1 %; Red Blood Cells 3.59 10^6/uL (4.0-5.20); Red Cell Distribution Width 19.2 % (11.8-14.3); White Blood Cell 12.1 10^3/uL (4.4-10.8)
[2021-06-19 04:25] LABS: Potassium 3.3 mmol/L (3.5-5.1)
[2021-06-19 04:31] LABS: Albumin 1.6 g/dL (3.4-5.0); BUN/Creatinine Ratio 38.2; Bilirubin, Total 0.7 mg/dL (0.2-1.0); Calcium 8.3 mg/dL (8.5-10.1); Total Protein 5.2 g/dL (6.4-8.2)
[2021-06-19] MEDS: METOCLOPRAMIDE HCL 5MG/ml INJ 2ml VIAL IV SCH ×3 (06:00→22:00)
[2021-06-19] MEDS: InsuLIN REG 1unit/0.01ml Soln (100units/ml) SC SCH ×4 (06:54→23:11)
[2021-06-19] MEDS: ACCU-CHEK COMFORT CURVE STRIP VI SCH ×4 (06:54→22:50)
[2021-06-19] MEDS: FAMOTIDINE (10MG/ML) 2ML VL IV SCH ×2 (09:31→22:47)
[2021-06-19] MEDS: levoFLOXacin 500MG 100 ML IV SCH (09:31)
[2021-06-19] MEDS: APIXABAN 5 MG TAB PO SCH ×2 (09:32→22:49)
[2021-06-19] MEDS: SODIUM CHLOR 0.9% PF (SALINE LOCK) 10ML VIAL/SYR IV SCH ×2 (09:32→22:48)
[2021-06-19] MEDS: FUROSEMIDE 20 MG/2 ML VIAL IV SCH ×2 (09:32→22:47)
[2021-06-19] MEDS: DIGOXIN 0.125 MG TAB PO SCH (09:33)
[2021-06-19] MEDS: NYSTATIN TOPICAL POWDER 15GM TOP SCH ×2 (09:33→22:49)
[2021-06-19] MEDS: POTASSIUM EFFERVESENT TAB 25 MEQ GT SCH (09:33)
[2021-06-19] MEDS ORDERED: POTASSIUM EFFERVESENT TAB 25 MEQ GT ONE (11:30)
[2021-06-19] MEDS: fentaNYL Drip 2500mCg/250mlNS 250 ML IV SCH (12:45)
[2021-06-19] MEDS: MIDAZOLAM DRIP 50 mg/50mL 50 ML IV SCH (16:30)
[2021-06-19] MEDS ORDERED: FUROSEMIDE 20 MG/2 ML VIAL IV STA (17:00)
[2021-06-19] MEDS: ACETYLCYSTEINE 20%(200MG/ML) SOL 4ML NEB SCH (19:00)
[2021-06-20] VITALS (93 sets, daily range): BP systolic 81–144; BP diastolic 35–77
[2021-06-20] MEDS: LEVALBUTEROL HCL 1.25 MG/3 ML NEB NEB SCH ×4 (00:45→18:15)
[2021-06-20] MEDS: IPRATROPIUM BROM 0.5 MG/2.5ML INH SOL NEB PRN ×2 (00:45→06:34)
[2021-06-20] MEDS: VANCOMYCIN 1GM/250ML 250 ML IV SCH ×2 (04:23→17:30)
[2021-06-20] MEDS: ACETYLCYSTEINE 20%(200MG/ML) SOL 4ML NEB SCH ×3 (06:34→18:30)
[2021-06-20 06:49] LABS: Potassium 3.3 mmol/L (3.5-5.1)
[2021-06-20] MEDS: METOCLOPRAMIDE HCL 5MG/ml INJ 2ml VIAL IV SCH ×3 (06:57→19:31)
[2021-06-20] MEDS: ACCU-CHEK COMFORT CURVE STRIP VI SCH ×4 (06:57→21:06)
[2021-06-20 06:58] LABS: Basophils # (auto) 0.1 10 ^3/uL (0-0.2); Eosinophils # (auto) 0.3 10 ^3/uL (0-0.8); Hemoglobin 8.8 g/dL (12.2-16.2); Monocytes # (auto) 1.7 10 ^3/uL (0-1.3); Nucleated Red Blood Cells % 0.1 %; Red Cell Distribution Width 19.1 % (11.8-14.3)
[2021-06-20] MEDS: InsuLIN REG 1unit/0.01ml Soln (100units/ml) SC SCH ×4 (06:58→21:06)
[2021-06-20 07:01] LABS: Basophils % (auto) 0.8 % (0.0-2.0); Eosinophils % (auto) 2.4 % (0.0-7.0); Hematocrit 28.6 % (36.0-46.0); Lymphocytes # (auto) 1.3 10 ^3/uL (0.4-5.4); Lymphocytes % (auto) 10.6 % (10.0-50.0); Mean Corpuscular Hemoglobin 24.5 pg (28.0-32.0); Mean Corpuscular Hgb Conc. 30.7 g/dL (32.0-36.0); Mean Corpuscular Volume 79.6 fL (80.0-100.0); Monocytes % (auto) 13.6 % (0.0-12.0); Neutrophils # (auto) 8.9 10 ^3/uL (1.6-8.6); Neutrophils % (auto) 72.6 % (37.0-80.0); Red Blood Cells 3.59 10^6/uL (4.0-5.20); White Blood Cell 12.2 10^3/uL (4.4-10.8)
[2021-06-20 07:02] LABS: Albumin 1.6 g/dL (3.4-5.0); BUN/Creatinine Ratio 35.3; Calcium 8.5 mg/dL (8.5-10.1)
[2021-06-20 07:05] LABS: Bilirubin, Total 0.7 mg/dL (0.2-1.0)
[2021-06-20] MEDS: fentaNYL Drip 2500mCg/250mlNS 250 ML IV SCH ×2 (07:49→13:45)
[2021-06-20] MEDS: NOREPINEPHRINE 8 MG/250ML KIT 250 ML IV SCH (07:50)
[2021-06-20] MEDS: PROPOFOL 100 ML IV SCH ×3 (08:09→19:35)
[2021-06-20] MEDS ORDERED: POTASSIUM EFFERVESENT TAB 25 MEQ GT ONE (10:30)
[2021-06-20] MEDS: POTASSIUM EFFERVESENT TAB 25 MEQ GT SCH (10:56)
[2021-06-20] MEDS: APIXABAN 5 MG TAB PO SCH ×2 (10:57→21:05)
[2021-06-20] MEDS: NYSTATIN TOPICAL POWDER 15GM TOP SCH ×2 (10:57→22:39)
[2021-06-20] MEDS: DIGOXIN 0.125 MG TAB PO SCH (10:57)
[2021-06-20] MEDS: levoFLOXacin 500MG 100 ML IV SCH (10:58)
[2021-06-20] MEDS: SODIUM CHLOR 0.9% PF (SALINE LOCK) 10ML VIAL/SYR IV SCH ×2 (10:58→19:31)
[2021-06-20] MEDS: FAMOTIDINE (10MG/ML) 2ML VL IV SCH ×2 (10:58→21:05)
[2021-06-20] MEDS: FUROSEMIDE 40 MG/4 ML VIAL IV SCH ×2 (11:16→17:43)
[2021-06-20] MEDS ORDERED: MEROPENEM 1GM IVPB 100 ML IV ONE (13:15)
[2021-06-20] MEDS: MIDAZOLAM DRIP 50 mg/50mL 50 ML IV SCH (16:30)
[2021-06-20] MEDS: MEROPENEM 1GM IVPB 100 ML IV SCH (21:04)
[2021-06-21] VITALS (87 sets, daily range): BP systolic 92–180; BP diastolic 27–111
[2021-06-21] MEDS: IPRATROPIUM BROM 0.5 MG/2.5ML INH SOL NEB PRN (00:24)
[2021-06-21] MEDS: LEVALBUTEROL HCL 1.25 MG/3 ML NEB NEB SCH ×4 (00:24→18:00)
[2021-06-21 02:42] LABS: Basophils # (auto) 0.2 10 ^3/uL (0-0.2); Basophils % (auto) 1.3 % (0.0-2.0); Hemoglobin 9.4 g/dL (12.2-16.2); Lymphocytes % (auto) 7.8 % (10.0-50.0); Monocytes # (auto) 1.7 10 ^3/uL (0-1.3); Nucleated Red Blood Cells % 0.1 %
[2021-06-21 02:43] LABS: Eosinophils # (auto) 0.2 10 ^3/uL (0-0.8); Eosinophils % (auto) 1.8 % (0.0-7.0); Mean Corpuscular Hemoglobin 24.5 pg (28.0-32.0); Mean Corpuscular Hgb Conc. 31.2 g/dL (32.0-36.0); Mean Corpuscular Volume 78.5 fL (80.0-100.0); Monocytes % (auto) 13.4 % (0.0-12.0); Neutrophils # (auto) 9.8 10 ^3/uL (1.6-8.6); Neutrophils % (auto) 75.7 % (37.0-80.0); Red Blood Cells 3.82 10^6/uL (4.0-5.20); Red Cell Distribution Width 19.7 % (11.8-14.3); White Blood Cell 12.9 10^3/uL (4.4-10.8)
[2021-06-21] MEDS: METOCLOPRAMIDE HCL 5MG/ml INJ 2ml VIAL IV SCH ×3 (02:53→19:16)
[2021-06-21 03:09] LABS: BUN/Creatinine Ratio 31.8; Calcium 8.6 mg/dL (8.5-10.1); Potassium 3.3 mmol/L (3.5-5.1)
[2021-06-21] MEDS: FUROSEMIDE 40 MG/4 ML VIAL IV SCH (06:23)
[2021-06-21] MEDS: MEROPENEM 1GM IVPB 100 ML IV SCH ×3 (06:23→20:48)
[2021-06-21] MEDS: ACCU-CHEK COMFORT CURVE STRIP VI SCH ×4 (06:24→20:50)
[2021-06-21] MEDS: InsuLIN REG 1unit/0.01ml Soln (100units/ml) SC SCH ×4 (06:25→20:50)
[2021-06-21] MEDS: ACETYLCYSTEINE 20%(200MG/ML) SOL 4ML NEB SCH ×3 (07:16→23:50)
[2021-06-21] MEDS: VANCOMYCIN 1GM/250ML 250 ML IV SCH (08:00)
[2021-06-21] MEDS: PROPOFOL 100 ML IV SCH ×3 (09:27→18:48)
[2021-06-21] MEDS: NOREPINEPHRINE 8 MG/250ML KIT 250 ML IV SCH ×2 (09:32→19:45)
[2021-06-21] MEDS: POTASSIUM EFFERVESENT TAB 25 MEQ GT SCH (09:39)
[2021-06-21] MEDS: FAMOTIDINE (10MG/ML) 2ML VL IV SCH ×2 (09:39→20:48)
[2021-06-21] MEDS: SODIUM CHLOR 0.9% PF (SALINE LOCK) 10ML VIAL/SYR IV SCH ×2 (09:40→20:30)
[2021-06-21] MEDS: DIGOXIN 0.125 MG TAB PO SCH (09:58)
[2021-06-21] MEDS: APIXABAN 5 MG TAB PO SCH ×2 (09:58→20:49)
[2021-06-21] MEDS: NYSTATIN TOPICAL POWDER 15GM TOP SCH ×2 (09:58→20:50)
[2021-06-21] MEDS: fentaNYL Drip 2500mCg/250mlNS 250 ML IV SCH ×2 (14:45→16:55)
[2021-06-21] MEDS: MIDAZOLAM DRIP 50 mg/50mL 50 ML IV SCH (16:30)
[2021-06-22] VITALS (102 sets, daily range): BP systolic 88–154; BP diastolic 39–76
[2021-06-22] MEDS: fentaNYL Drip 2500mCg/250mlNS 250 ML IV SCH (03:15)
[2021-06-22] MEDS: METOCLOPRAMIDE HCL 5MG/ml INJ 2ml VIAL IV SCH ×3 (03:53→22:14)
[2021-06-22 04:44] LABS: Basophils # (auto) 0.1 10 ^3/uL (0-0.2); Basophils % (auto) 1.1 % (0.0-2.0); Eosinophils # (auto) 0.4 10 ^3/uL (0-0.8); Lymphocytes # (auto) 1.1 10 ^3/uL (0.4-5.4); Lymphocytes % (auto) 9.8 % (10.0-50.0); Monocytes # (auto) 1.3 10 ^3/uL (0-1.3); Red Cell Distribution Width 19.3 % (11.8-14.3)
[2021-06-22 04:46] LABS: Eosinophils % (auto) 3.3 % (0.0-7.0); Hematocrit 29.8 % (36.0-46.0); Hemoglobin 9.1 g/dL (12.2-16.2); Mean Corpuscular Hemoglobin 24.1 pg (28.0-32.0); Mean Corpuscular Hgb Conc. 30.5 g/dL (32.0-36.0); Mean Corpuscular Volume 78.9 fL (80.0-100.0); Monocytes % (auto) 11.7 % (0.0-12.0); Neutrophils # (auto) 8.4 10 ^3/uL (1.6-8.6); Neutrophils % (auto) 74.1 % (37.0-80.0); Red Blood Cells 3.78 10^6/uL (4.0-5.20); White Blood Cell 11.4 10^3/uL (4.4-10.8)
[2021-06-22 04:58] LABS: Potassium 3.3 mmol/L (3.5-5.1)
[2021-06-22 05:02] LABS: Albumin 1.6 g/dL (3.4-5.0); BUN/Creatinine Ratio 37.5; Calcium 8.7 mg/dL (8.5-10.1)
[2021-06-22 05:04] LABS: Bilirubin, Total 0.8 mg/dL (0.2-1.0); Total Protein 5.2 g/dL (6.4-8.2)
[2021-06-22] MEDS: IPRATROPIUM BROM 0.5 MG/2.5ML INH SOL NEB PRN ×2 (06:25→18:23)
[2021-06-22] MEDS: ACETYLCYSTEINE 20%(200MG/ML) SOL 4ML NEB SCH ×3 (06:26→18:24)
[2021-06-22] MEDS: LEVALBUTEROL HCL 1.25 MG/3 ML NEB NEB SCH ×4 (06:26→18:23)
[2021-06-22] MEDS: InsuLIN REG 1unit/0.01ml Soln (100units/ml) SC SCH ×4 (06:30→22:15)
[2021-06-22] MEDS: ACCU-CHEK COMFORT CURVE STRIP VI SCH ×4 (06:30→22:15)
[2021-06-22] MEDS: MEROPENEM 1GM IVPB 100 ML IV SCH ×3 (06:31→22:14)
[2021-06-22] MEDS ORDERED: POTASSIUM EFFERVESENT TAB 25 MEQ GT ONE (11:30)
[2021-06-22] MEDS: APIXABAN 5 MG TAB PO SCH ×2 (11:32→22:14)
[2021-06-22] MEDS: PROPOFOL 100 ML IV SCH ×2 (11:32→22:16)
[2021-06-22] MEDS: POTASSIUM EFFERVESENT TAB 25 MEQ GT SCH (11:32)
[2021-06-22] MEDS: FUROSEMIDE 40 MG/4 ML VIAL IV SCH (11:33)
[2021-06-22] MEDS: FAMOTIDINE (10MG/ML) 2ML VL IV SCH ×2 (11:33→22:14)
[2021-06-22] MEDS: DIGOXIN 0.125 MG TAB PO SCH (11:34)
[2021-06-22] MEDS: NYSTATIN TOPICAL POWDER 15GM TOP SCH ×2 (11:35→22:15)
[2021-06-22] MEDS: SODIUM CHLOR 0.9% PF (SALINE LOCK) 10ML VIAL/SYR IV SCH ×2 (15:00→22:14)
[2021-06-22] MEDS: MIDAZOLAM DRIP 50 mg/50mL 50 ML IV SCH (16:30)
[2021-06-22] MEDS: NOREPINEPHRINE 8 MG/250ML KIT 250 ML IV SCH (19:45)
[2021-06-23] VITALS (84 sets, daily range): BP systolic 84–139; BP diastolic 42–63
[2021-06-23] MEDS: PROPOFOL 100 ML IV SCH ×5 (00:18→15:37)
[2021-06-23] MEDS: LEVALBUTEROL HCL 1.25 MG/3 ML NEB NEB SCH ×2 (00:37→17:54)
[2021-06-23] MEDS: fentaNYL Drip 2500mCg/250mlNS 250 ML IV SCH ×3 (01:29→16:45)
[2021-06-23] MEDS: IPRATROPIUM BROM 0.5 MG/2.5ML INH SOL NEB PRN ×2 (03:03→17:54)
[2021-06-23] MEDS: NOREPINEPHRINE 8 MG/250ML KIT 250 ML IV SCH (05:17)
[2021-06-23] MEDS: MEROPENEM 1GM IVPB 100 ML IV SCH ×3 (05:18→21:14)
[2021-06-23] MEDS: METOCLOPRAMIDE HCL 5MG/ml INJ 2ml VIAL IV SCH ×3 (05:18→21:15)
[2021-06-23 05:25] LABS: Eosinophils # (auto) 0.3 10 ^3/uL (0-0.8); Lymphocytes # (auto) 0.8 10 ^3/uL (0.4-5.4); Red Blood Cells 3.56 10^6/uL (4.0-5.20)
[2021-06-23 05:29] LABS: Basophils # (auto) 0.2 10 ^3/uL (0-0.2); Basophils % (auto) 1.5 % (0.0-2.0); Eosinophils % (auto) 2.5 % (0.0-7.0); Hematocrit 28.2 % (36.0-46.0); Hemoglobin 9.1 g/dL (12.2-16.2); Lymphocytes % (auto) 7.1 % (10.0-50.0); Mean Corpuscular Hemoglobin 25.5 pg (28.0-32.0); Mean Corpuscular Hgb Conc. 32.3 g/dL (32.0-36.0); Mean Corpuscular Volume 79.1 fL (80.0-100.0); Monocytes % (auto) 8.9 % (0.0-12.0); Neutrophils # (auto) 9.3 10 ^3/uL (1.6-8.6); Nucleated Red Blood Cells % 0.2 %; Red Cell Distribution Width 18.9 % (11.8-14.3); White Blood Cell 11.6 10^3/uL (4.4-10.8)
[2021-06-23 06:01] LABS: Calcium 7.8 mg/dL (8.5-10.1); Potassium 3.3 mmol/L (3.5-5.1)
[2021-06-23 06:03] LABS: BUN/Creatinine Ratio 43.8
[2021-06-23] MEDS: ACCU-CHEK COMFORT CURVE STRIP VI SCH ×4 (06:18→21:15)
[2021-06-23] MEDS: InsuLIN REG 1unit/0.01ml Soln (100units/ml) SC SCH ×4 (06:19→21:39)
[2021-06-23] MEDS: POTASSIUM EFFERVESENT TAB 25 MEQ GT SCH ×2 (11:00→21:13)
[2021-06-23] MEDS: FUROSEMIDE 40 MG/4 ML VIAL IV SCH ×2 (11:01→21:14)
[2021-06-23] MEDS: SODIUM CHLOR 0.9% PF (SALINE LOCK) 10ML VIAL/SYR IV SCH ×2 (11:17→21:15)
[2021-06-23] MEDS: FAMOTIDINE (10MG/ML) 2ML VL IV SCH ×2 (11:17→21:14)
[2021-06-23] MEDS: APIXABAN 5 MG TAB PO SCH ×2 (11:18→21:15)
[2021-06-23] MEDS: DIGOXIN 0.125 MG TAB PO SCH (11:19)
[2021-06-23] MEDS: NYSTATIN TOPICAL POWDER 15GM TOP SCH ×2 (11:19→21:15)
[2021-06-23] MEDS ORDERED: FUROSEMIDE 40 MG/4 ML VIAL IV ONE (13:45)
[2021-06-23] MEDS: POTASSIUM CHL 20MEQ/100ML 100 ML IV SCH ×2 (15:45→20:09)
[2021-06-23] MEDS: MIDAZOLAM DRIP 50 mg/50mL 50 ML IV SCH (16:30)
[2021-06-24] VITALS (104 sets, daily range): BP systolic 90–161; BP diastolic 41–73
[2021-06-24] MEDS: IPRATROPIUM BROM 0.5 MG/2.5ML INH SOL NEB PRN (00:14)
[2021-06-24] MEDS: LEVALBUTEROL HCL 1.25 MG/3 ML NEB NEB SCH ×4 (00:14→18:30)
[2021-06-24 04:56] LABS: Calcium 8.3 mg/dL (8.5-10.1); Potassium 3.8 mmol/L (3.5-5.1)
[2021-06-24 04:58] LABS: BUN/Creatinine Ratio 44.9
[2021-06-24] MEDS: MEROPENEM 1GM IVPB 100 ML IV SCH ×3 (05:01→22:13)
[2021-06-24] MEDS: fentaNYL Drip 2500mCg/250mlNS 250 ML IV SCH ×2 (05:01→17:45)
[2021-06-24] MEDS: FUROSEMIDE 40 MG/4 ML VIAL IV SCH ×2 (05:01→18:25)
[2021-06-24] MEDS: METOCLOPRAMIDE HCL 5MG/ml INJ 2ml VIAL IV SCH ×3 (05:02→22:00)
[2021-06-24] MEDS: InsuLIN REG 1unit/0.01ml Soln (100units/ml) SC SCH ×4 (05:59→22:13)
[2021-06-24] MEDS: ACCU-CHEK COMFORT CURVE STRIP VI SCH ×4 (06:23→22:00)
[2021-06-24] MEDS: DIGOXIN 0.125 MG TAB PO SCH (10:00)
[2021-06-24] MEDS: SODIUM CHLOR 0.9% PF (SALINE LOCK) 10ML VIAL/SYR IV SCH (10:13)
[2021-06-24] MEDS: FAMOTIDINE (10MG/ML) 2ML VL IV SCH ×2 (10:13→22:00)
[2021-06-24] MEDS: POTASSIUM EFFERVESENT TAB 25 MEQ GT SCH ×2 (10:13→22:00)
[2021-06-24] MEDS: Vital High Protein 1liter Bottle GT SCH (10:14)
[2021-06-24] MEDS: NYSTATIN TOPICAL POWDER 15GM TOP SCH ×2 (10:14→22:00)
[2021-06-24] MEDS: APIXABAN 5 MG TAB PO SCH ×2 (10:14→22:00)
[2021-06-24] MEDS: PROPOFOL 100 ML IV SCH (10:15)
[2021-06-24] MEDS: MIDAZOLAM DRIP 50 mg/50mL 50 ML IV SCH (10:58)
[2021-06-24] MEDS: NOREPINEPHRINE 8 MG/250ML KIT 250 ML IV SCH (19:45)
[2021-06-25] VITALS (103 sets, daily range): BP systolic 85–152; BP diastolic 35–77
[2021-06-25] MEDS: LEVALBUTEROL HCL 1.25 MG/3 ML NEB NEB SCH ×4 (00:21→18:34)
[2021-06-25] MEDS: SODIUM CHLOR 0.9% PF (SALINE LOCK) 10ML VIAL/SYR IV SCH ×3 (01:34→22:46)
[2021-06-25 04:05] LABS: Basophils # (auto) 0 10 ^3/uL (0-0.2); Eosinophils # (auto) 0.4 10 ^3/uL (0-0.8); Hemoglobin 8.9 g/dL (12.2-16.2); Lymphocytes # (auto) 1.2 10 ^3/uL (0.4-5.4)
[2021-06-25 04:07] LABS: Basophils % (auto) 0.5 % (0.0-2.0); Eosinophils % (auto) 4.5 % (0.0-7.0); Hematocrit 27.5 % (36.0-46.0); Lymphocytes % (auto) 13.8 % (10.0-50.0); Mean Corpuscular Hemoglobin 25.7 pg (28.0-32.0); Mean Corpuscular Hgb Conc. 32.5 g/dL (32.0-36.0); Mean Corpuscular Volume 79.1 fL (80.0-100.0); Neutrophils % (auto) 69.2 % (37.0-80.0); Nucleated Red Blood Cells % 0.2 %; Red Blood Cells 3.48 10^6/uL (4.0-5.20); White Blood Cell 8.6 10^3/uL (4.4-10.8)
[2021-06-25 04:17] LABS: Red Cell Distribution Width 20.1 % (11.8-14.3)
[2021-06-25] MEDS ORDERED: HEPARIN SODIUM (PORCINE) 5000 UNITS/ML 1ML VIAL ONE (04:36)
[2021-06-25] MEDS: METOCLOPRAMIDE HCL 5MG/ml INJ 2ml VIAL IV SCH ×3 (06:00→22:00)
[2021-06-25 06:32] LABS: BUN/Creatinine Ratio 53.3; Calcium 8.1 mg/dL (8.5-10.1); Potassium 3.3 mmol/L (3.5-5.1)
[2021-06-25] MEDS: IPRATROPIUM BROM 0.5 MG/2.5ML INH SOL NEB PRN (06:45)
[2021-06-25] MEDS: InsuLIN REG 1unit/0.01ml Soln (100units/ml) SC SCH ×4 (07:00→22:47)
[2021-06-25] MEDS: ACCU-CHEK COMFORT CURVE STRIP VI SCH ×4 (07:17→22:47)
[2021-06-25] MEDS: MEROPENEM 1GM IVPB 100 ML IV SCH ×3 (07:17→22:46)
[2021-06-25] MEDS: FUROSEMIDE 40 MG/4 ML VIAL IV SCH ×2 (07:17→18:03)
[2021-06-25] MEDS: fentaNYL Drip 2500mCg/250mlNS 250 ML IV SCH ×2 (07:18→18:45)
[2021-06-25] MEDS: FAMOTIDINE (10MG/ML) 2ML VL IV SCH ×2 (09:37→22:46)
[2021-06-25] MEDS: POTASSIUM EFFERVESENT TAB 25 MEQ GT SCH ×2 (09:37→22:45)
[2021-06-25] MEDS: APIXABAN 5 MG TAB PO SCH ×2 (09:37→22:47)
[2021-06-25] MEDS: DIGOXIN 0.125 MG TAB PO SCH (09:38)
[2021-06-25] MEDS: NYSTATIN TOPICAL POWDER 15GM TOP SCH ×2 (09:38→22:47)
[2021-06-25] MEDS: PROPOFOL 100 ML IV SCH ×2 (10:34→17:56)
[2021-06-25] MEDS: MIDAZOLAM DRIP 50 mg/50mL 50 ML IV SCH (16:30)
[2021-06-25] MEDS: NOREPINEPHRINE 8 MG/250ML KIT 250 ML IV SCH (23:00)
[2021-06-26] VITALS (98 sets, daily range): BP systolic 85–152; BP diastolic 32–58
[2021-06-26 04:30] LABS: Basophils # (auto) 0.1 10 ^3/uL (0-0.2); Lymphocytes # (auto) 1.2 10 ^3/uL (0.4-5.4); Neutrophils # (auto) 5.7 10 ^3/uL (1.6-8.6); Neutrophils % (auto) 67.6 % (37.0-80.0)
[2021-06-26 04:34] LABS: Eosinophils # (auto) 0.3 10 ^3/uL (0-0.8); Hematocrit 28.4 % (36.0-46.0); Hemoglobin 9.4 g/dL (12.2-16.2); Lymphocytes % (auto) 14.7 % (10.0-50.0); Mean Corpuscular Hemoglobin 26.2 pg (28.0-32.0); Mean Corpuscular Hgb Conc. 33.1 g/dL (32.0-36.0); Mean Corpuscular Volume 79.3 fL (80.0-100.0); Monocytes # (auto) 1.1 10 ^3/uL (0-1.3); Monocytes % (auto) 12.7 % (0.0-12.0); Nucleated Red Blood Cells % 0.2 %; Red Blood Cells 3.58 10^6/uL (4.0-5.20); Red Cell Distribution Width 19.7 % (11.8-14.3); White Blood Cell 8.5 10^3/uL (4.4-10.8)
[2021-06-26 04:45] LABS: Albumin 1.6 g/dL (3.4-5.0); Calcium 7.7 mg/dL (8.5-10.1); Potassium 3.5 mmol/L (3.5-5.1)
[2021-06-26 04:48] LABS: BUN/Creatinine Ratio 52.2
[2021-06-26 04:51] LABS: Bilirubin, Total 0.8 mg/dL (0.2-1.0); Total Protein 5.2 g/dL (6.4-8.2)
[2021-06-26] MEDS: METOCLOPRAMIDE HCL 5MG/ml INJ 2ml VIAL IV SCH ×3 (06:00→22:00)
[2021-06-26] MEDS: FUROSEMIDE 40 MG/4 ML VIAL IV SCH ×2 (06:55→13:08)
[2021-06-26] MEDS: MEROPENEM 1GM IVPB 100 ML IV SCH ×3 (06:55→22:00)
[2021-06-26] MEDS: InsuLIN REG 1unit/0.01ml Soln (100units/ml) SC SCH ×4 (07:04→22:00)
[2021-06-26] MEDS: ACCU-CHEK COMFORT CURVE STRIP VI SCH ×4 (07:04→22:00)
[2021-06-26] MEDS: IPRATROPIUM BROM 0.5 MG/2.5ML INH SOL NEB PRN ×3 (07:06→18:16)
[2021-06-26] MEDS: LEVALBUTEROL HCL 1.25 MG/3 ML NEB NEB SCH ×4 (07:06→22:50)
[2021-06-26] MEDS: fentaNYL Drip 2500mCg/250mlNS 250 ML IV SCH (07:28)
[2021-06-26] MEDS: FAMOTIDINE (10MG/ML) 2ML VL IV SCH ×2 (10:00→22:00)
[2021-06-26] MEDS: POTASSIUM EFFERVESENT TAB 25 MEQ GT SCH ×2 (10:00→22:00)
[2021-06-26] MEDS: SODIUM CHLOR 0.9% PF (SALINE LOCK) 10ML VIAL/SYR IV SCH ×2 (10:01→22:00)
[2021-06-26] MEDS: APIXABAN 5 MG TAB PO SCH ×2 (10:01→22:00)
[2021-06-26] MEDS: DIGOXIN 0.125 MG TAB PO SCH (10:01)
[2021-06-26] MEDS: NYSTATIN TOPICAL POWDER 15GM TOP SCH ×2 (10:02→22:00)
[2021-06-26] MEDS: MIDAZOLAM DRIP 50 mg/50mL 50 ML IV SCH (16:30)
[2021-06-26] MEDS: PROPOFOL 100 ML IV SCH (16:42)
[2021-06-27] VITALS (83 sets, daily range): BP systolic 88–146; BP diastolic 18–65
[2021-06-27 04:36] LABS: Basophils # (auto) 0.1 10 ^3/uL (0-0.2); Eosinophils # (auto) 0.4 10 ^3/uL (0-0.8); Lymphocytes # (auto) 1.2 10 ^3/uL (0.4-5.4); Nucleated Red Blood Cells % 0.2 %; White Blood Cell 7.5 10^3/uL (4.4-10.8)
[2021-06-27 04:39] LABS: Basophils % (auto) 1.1 % (0.0-2.0); Eosinophils % (auto) 5.8 % (0.0-7.0); Hematocrit 29.9 % (36.0-46.0); Hemoglobin 9.3 g/dL (12.2-16.2); Mean Corpuscular Hemoglobin 24.7 pg (28.0-32.0); Mean Corpuscular Volume 79.7 fL (80.0-100.0); Monocytes # (auto) 1.1 10 ^3/uL (0-1.3); Monocytes % (auto) 14.1 % (0.0-12.0); Neutrophils # (auto) 4.7 10 ^3/uL (1.6-8.6); Red Blood Cells 3.75 10^6/uL (4.0-5.20)
[2021-06-27 04:55] LABS: BUN/Creatinine Ratio 56.5; Calcium 8.1 mg/dL (8.5-10.1)
[2021-06-27] MEDS: METOCLOPRAMIDE HCL 5MG/ml INJ 2ml VIAL IV SCH ×3 (06:00→22:00)
[2021-06-27] MEDS: ACCU-CHEK COMFORT CURVE STRIP VI SCH ×4 (06:47→22:00)
[2021-06-27] MEDS: MEROPENEM 1GM IVPB 100 ML IV SCH ×3 (06:47→22:00)
[2021-06-27] MEDS: InsuLIN REG 1unit/0.01ml Soln (100units/ml) SC SCH ×4 (06:49→22:00)
[2021-06-27] MEDS: LEVALBUTEROL HCL 1.25 MG/3 ML NEB NEB SCH ×3 (07:20→18:30)
[2021-06-27] MEDS: FUROSEMIDE 40 MG/4 ML VIAL IV SCH (09:38)
[2021-06-27] MEDS: POTASSIUM EFFERVESENT TAB 25 MEQ GT SCH (09:38)
[2021-06-27] MEDS: DIGOXIN 0.125 MG TAB PO SCH (09:39)
[2021-06-27] MEDS: SODIUM CHLOR 0.9% PF (SALINE LOCK) 10ML VIAL/SYR IV SCH ×2 (09:39→22:00)
[2021-06-27] MEDS: APIXABAN 5 MG TAB PO SCH ×2 (09:39→22:00)
[2021-06-27] MEDS: NYSTATIN TOPICAL POWDER 15GM TOP SCH ×2 (09:39→22:00)
[2021-06-27] MEDS: FAMOTIDINE (10MG/ML) 2ML VL IV SCH ×2 (09:39→22:00)
[2021-06-27] MEDS: PROPOFOL 100 ML IV SCH (09:40)
[2021-06-27] MEDS ORDERED: acetaZOLAMIDE SODIUM 500 MG VL IV ONE (15:45)
[2021-06-27] MEDS: MIDAZOLAM DRIP 50 mg/50mL 50 ML IV SCH (16:30)
[2021-06-27] MEDS: IPRATROPIUM BROM 0.5 MG/2.5ML INH SOL NEB PRN (18:30)
[2021-06-27] MEDS: NOREPINEPHRINE 8 MG/250ML KIT 250 ML IV SCH (19:45)
[2021-06-27] MEDS: fentaNYL Drip 2500mCg/250mlNS 250 ML IV SCH (20:45)
[2021-06-28] VITALS (83 sets, daily range): BP systolic 72–150; BP diastolic 26–70
[2021-06-28] MEDS: LEVALBUTEROL HCL 1.25 MG/3 ML NEB NEB SCH ×5 (02:26→22:23)
[2021-06-28] MEDS: METOCLOPRAMIDE HCL 5MG/ml INJ 2ml VIAL IV SCH ×3 (05:30→22:00)
[2021-06-28] MEDS: InsuLIN REG 1unit/0.01ml Soln (100units/ml) SC SCH ×4 (05:31→22:00)
[2021-06-28] MEDS: ACCU-CHEK COMFORT CURVE STRIP VI SCH ×4 (05:31→22:00)
[2021-06-28] MEDS: MEROPENEM 1GM IVPB 100 ML IV SCH ×3 (05:43→22:00)
[2021-06-28 06:10] LABS: BUN/Creatinine Ratio 62.3; Calcium 8.1 mg/dL (8.5-10.1); Potassium 3.3 mmol/L (3.5-5.1)
[2021-06-28] MEDS: NOREPINEPHRINE 8 MG/250ML KIT 250 ML IV SCH ×2 (08:44→19:45)
[2021-06-28] MEDS: FAMOTIDINE (10MG/ML) 2ML VL IV SCH ×2 (09:00→22:00)
[2021-06-28] MEDS: APIXABAN 5 MG TAB PO SCH ×2 (09:00→22:00)
[2021-06-28] MEDS: FUROSEMIDE 40 MG/4 ML VIAL IV SCH (09:00)
[2021-06-28] MEDS: POTASSIUM EFFERVESENT TAB 25 MEQ GT SCH (09:01)
[2021-06-28] MEDS: DIGOXIN 0.125 MG TAB PO SCH (09:01)
[2021-06-28] MEDS: NYSTATIN TOPICAL POWDER 15GM TOP SCH ×2 (09:01→22:00)
[2021-06-28] MEDS: SODIUM CHLOR 0.9% PF (SALINE LOCK) 10ML VIAL/SYR IV SCH ×2 (09:02→22:00)
[2021-06-28] MEDS: fentaNYL Drip 2500mCg/250mlNS 250 ML IV SCH ×3 (09:15→21:45)
[2021-06-28] MEDS: acetaZOLAMIDE SODIUM 500 MG VL IV SCH (09:49)
[2021-06-28] MEDS: PROPOFOL 100 ML IV SCH ×2 (10:35→14:52)
[2021-06-28] MEDS ORDERED: POTASSIUM EFFERVESENT TAB 25 MEQ GT ONE (13:45)
[2021-06-28] MEDS ORDERED: FUROSEMIDE 40 MG/4 ML VIAL IV ONE (13:45)
[2021-06-28] MEDS: ALBUMIN 25% 50 ML IV SCH ×2 (13:53→21:45)
[2021-06-28] MEDS: MIDAZOLAM DRIP 50 mg/50mL 50 ML IV SCH (16:12)
[2021-06-28] MEDS: FREE WATER GT SCH (17:42)
[2021-06-28] MEDS: IPRATROPIUM BROM 0.5 MG/2.5ML INH SOL NEB PRN ×2 (19:18→22:23)
[2021-06-29] VITALS (97 sets, daily range): BP systolic 97–138; BP diastolic 32–91
[2021-06-29] MEDS: ALBUMIN 25% 50 ML IV SCH (05:45)
[2021-06-29] MEDS: METOCLOPRAMIDE HCL 5MG/ml INJ 2ml VIAL IV SCH ×3 (05:49→21:01)
[2021-06-29] MEDS: MEROPENEM 1GM IVPB 100 ML IV SCH ×3 (06:00→21:00)
[2021-06-29] MEDS: FREE WATER GT SCH ×4 (06:00→17:07)
[2021-06-29] MEDS: LEVALBUTEROL HCL 1.25 MG/3 ML NEB NEB SCH ×3 (06:10→18:37)
[2021-06-29] MEDS: InsuLIN REG 1unit/0.01ml Soln (100units/ml) SC SCH ×4 (06:13→22:00)
[2021-06-29] MEDS: ACCU-CHEK COMFORT CURVE STRIP VI SCH ×4 (06:13→22:00)
[2021-06-29 06:52] LABS: Basophils # (auto) 0.1 10 ^3/uL (0-0.2); Eosinophils # (auto) 0.5 10 ^3/uL (0-0.8); Hemoglobin 8.5 g/dL (12.2-16.2); Monocytes # (auto) 1.1 10 ^3/uL (0-1.3)
[2021-06-29 06:56] LABS: Basophils % (auto) 0.9 % (0.0-2.0); Eosinophils % (auto) 4.6 % (0.0-7.0); Hematocrit 27.8 % (36.0-46.0); Lymphocytes # (auto) 1.4 10 ^3/uL (0.4-5.4); Lymphocytes % (auto) 14.2 % (10.0-50.0); Mean Corpuscular Hemoglobin 24.2 pg (28.0-32.0); Mean Corpuscular Hgb Conc. 30.4 g/dL (32.0-36.0); Mean Corpuscular Volume 79.6 fL (80.0-100.0); Monocytes % (auto) 11.1 % (0.0-12.0); Neutrophils # (auto) 6.9 10 ^3/uL (1.6-8.6); Neutrophils % (auto) 69.2 % (37.0-80.0); Nucleated Red Blood Cells % 0.1 %
[2021-06-29 07:01] LABS: Potassium 3.2 mmol/L (3.5-5.1)
[2021-06-29 07:06] LABS: BUN/Creatinine Ratio 70.2; Calcium 8.5 mg/dL (8.5-10.1)
[2021-06-29] MEDS: acetaZOLAMIDE SODIUM 500 MG VL IV SCH (09:08)
[2021-06-29] MEDS: POTASSIUM EFFERVESENT TAB 25 MEQ GT SCH (09:08)
[2021-06-29] MEDS: FAMOTIDINE (10MG/ML) 2ML VL IV SCH ×2 (09:08→21:01)
[2021-06-29] MEDS: APIXABAN 5 MG TAB PO SCH ×2 (09:08→21:01)
[2021-06-29] MEDS: SODIUM CHLOR 0.9% PF (SALINE LOCK) 10ML VIAL/SYR IV SCH ×2 (09:09→21:01)
[2021-06-29] MEDS: FUROSEMIDE 40 MG/4 ML VIAL IV SCH (09:09)
[2021-06-29] MEDS: NYSTATIN TOPICAL POWDER 15GM TOP SCH ×2 (09:10→21:02)
[2021-06-29] MEDS: PROPOFOL 100 ML IV SCH ×3 (09:11→18:06)
[2021-06-29] MEDS: fentaNYL Drip 2500mCg/250mlNS 250 ML IV SCH ×2 (10:09→10:15)
[2021-06-29] MEDS ORDERED: POTASSIUM EFFERVESENT TAB 25 MEQ GT ONE (14:00)
[2021-06-29] MEDS: MIDAZOLAM DRIP 50 mg/50mL 50 ML IV SCH (16:15)
[2021-06-29] MEDS ORDERED: PANTOPRAZOLE 40 MG/10 ML VIAL INJ IV ONE (17:15)
[2021-06-29] MEDS ORDERED: FUROSEMIDE 40 MG/4 ML VIAL IV ONE (18:00)
[2021-06-29] MEDS: IPRATROPIUM BROM 0.5 MG/2.5ML INH SOL NEB PRN (18:38)
[2021-06-29] MEDS: NOREPINEPHRINE 8 MG/250ML KIT 250 ML IV SCH (19:20)
[2021-06-30] VITALS (83 sets, daily range): BP systolic 78–136; BP diastolic 24–67
[2021-06-30] MEDS ORDERED: FUROSEMIDE 40 MG/4 ML VIAL IV SCH (06:00)
[2021-06-30] MEDS: MEROPENEM 1GM IVPB 100 ML IV SCH ×3 (06:00→21:28)
[2021-06-30] MEDS: METOCLOPRAMIDE HCL 5MG/ml INJ 2ml VIAL IV SCH ×3 (06:00→21:29)
[2021-06-30] MEDS: FREE WATER GT SCH ×4 (06:00→17:09)
[2021-06-30] MEDS: LEVALBUTEROL HCL 1.25 MG/3 ML NEB NEB SCH ×3 (06:35→18:13)
[2021-06-30] MEDS: IPRATROPIUM BROM 0.5 MG/2.5ML INH SOL NEB PRN ×2 (06:35→18:14)
[2021-06-30] MEDS: ACCU-CHEK COMFORT CURVE STRIP VI SCH ×4 (06:42→22:00)
[2021-06-30] MEDS: InsuLIN REG 1unit/0.01ml Soln (100units/ml) SC SCH ×4 (06:42→22:37)
[2021-06-30] MEDS: fentaNYL Drip 2500mCg/250mlNS 250 ML IV SCH ×2 (07:02→11:15)
[2021-06-30 08:09] LABS: BUN/Creatinine Ratio 59.7; Calcium 8.5 mg/dL (8.5-10.1); Magnesium 2.6 mg/dL (1.6-2.6); Potassium 3.3 mmol/L (3.5-5.1)
[2021-06-30] MEDS: PROPOFOL 100 ML IV SCH ×3 (08:26→18:36)
[2021-06-30] MEDS: FAMOTIDINE (10MG/ML) 2ML VL IV SCH ×2 (09:10→21:28)
[2021-06-30] MEDS: APIXABAN 5 MG TAB PO SCH ×2 (09:10→21:29)
[2021-06-30] MEDS: PANTOPRAZOLE 40 MG/10 ML VIAL INJ IV SCH (09:10)
[2021-06-30] MEDS: DIGOXIN 0.125 MG TAB PO SCH (09:10)
[2021-06-30] MEDS: NYSTATIN TOPICAL POWDER 15GM TOP SCH ×2 (09:11→21:29)
[2021-06-30] MEDS: SODIUM CHLOR 0.9% PF (SALINE LOCK) 10ML VIAL/SYR IV SCH ×2 (09:11→21:29)
[2021-06-30] MEDS: POTASSIUM EFFERVESENT TAB 25 MEQ GT SCH ×2 (09:11→21:28)
[2021-06-30] MEDS: acetaZOLAMIDE SODIUM 500 MG VL IV SCH (09:11)
[2021-06-30] MEDS ORDERED: BUMETANIDE 2.5mg/10ml (0.25 mg/ml) INJ IV ONE (14:30)
[2021-06-30] MEDS ORDERED: POTASSIUM EFFERVESENT TAB 25 MEQ GT ONE (14:30)
[2021-06-30] MEDS: MIDAZOLAM DRIP 50 mg/50mL 50 ML IV SCH (16:09)
[2021-06-30] MEDS: BUMETANIDE 2.5mg/10ml (0.25 mg/ml) INJ IV SCH (17:09)
[2021-06-30] MEDS: NOREPINEPHRINE 8 MG/250ML KIT 250 ML IV SCH (20:06)
[2021-07-01] VITALS (93 sets, daily range): BP systolic 92–142; BP diastolic 27–59
[2021-07-01] MEDS: FREE WATER GT SCH ×4 (00:17→17:39)
[2021-07-01] MEDS: fentaNYL Drip 2500mCg/250mlNS 250 ML IV SCH ×3 (00:17→23:17)
[2021-07-01] MEDS: IPRATROPIUM BROM 0.5 MG/2.5ML INH SOL NEB PRN ×3 (02:00→23:18)
[2021-07-01] MEDS: LEVALBUTEROL HCL 1.25 MG/3 ML NEB NEB SCH ×3 (02:00→18:00)
[2021-07-01 05:07] LABS: Eosinophils # (auto) 0.4 10 ^3/uL (0-0.8); Lymphocytes # (auto) 1.4 10 ^3/uL (0.4-5.4); Mean Corpuscular Volume 80.6 fL (80.0-100.0); Monocytes # (auto) 0.9 10 ^3/uL (0-1.3); Neutrophils # (auto) 4.6 10 ^3/uL (1.6-8.6)
[2021-07-01 05:11] LABS: Basophils # (auto) 0.1 10 ^3/uL (0-0.2); Eosinophils % (auto) 5.7 % (0.0-7.0); Hematocrit 29.3 % (36.0-46.0); Hemoglobin 8.9 g/dL (12.2-16.2); Lymphocytes % (auto) 19.3 % (10.0-50.0); Mean Corpuscular Hemoglobin 24.4 pg (28.0-32.0); Mean Corpuscular Hgb Conc. 30.3 g/dL (32.0-36.0); Monocytes % (auto) 12.3 % (0.0-12.0); Neutrophils % (auto) 61.7 % (37.0-80.0); Nucleated Red Blood Cells % 0.1 %; Red Blood Cells 3.63 10^6/uL (4.0-5.20); White Blood Cell 7.5 10^3/uL (4.4-10.8)
[2021-07-01 05:30] LABS: BUN/Creatinine Ratio 71.7; Calcium 8.6 mg/dL (8.5-10.1); Potassium 3.5 mmol/L (3.5-5.1)
[2021-07-01 05:32] LABS: Red Cell Distribution Width 20.3 % (11.8-14.3)
[2021-07-01] MEDS: BUMETANIDE 2.5mg/10ml (0.25 mg/ml) INJ IV SCH (05:44)
[2021-07-01] MEDS: METOCLOPRAMIDE HCL 5MG/ml INJ 2ml VIAL IV SCH ×2 (05:44→13:54)
[2021-07-01] MEDS: MEROPENEM 1GM IVPB 100 ML IV SCH ×3 (05:52→21:44)
[2021-07-01] MEDS: InsuLIN REG 1unit/0.01ml Soln (100units/ml) SC SCH ×4 (05:58→22:00)
[2021-07-01] MEDS: ACCU-CHEK COMFORT CURVE STRIP VI SCH ×4 (06:00→22:00)
[2021-07-01] MEDS: PROPOFOL 100 ML IV SCH ×4 (08:22→22:53)
[2021-07-01] MEDS: FAMOTIDINE (10MG/ML) 2ML VL IV SCH ×2 (09:00→21:43)
[2021-07-01] MEDS: APIXABAN 5 MG TAB PO SCH ×2 (09:00→21:45)
[2021-07-01] MEDS: NYSTATIN TOPICAL POWDER 15GM TOP SCH ×2 (09:01→21:49)
[2021-07-01] MEDS: SODIUM CHLOR 0.9% PF (SALINE LOCK) 10ML VIAL/SYR IV SCH ×2 (09:01→21:46)
[2021-07-01] MEDS: PANTOPRAZOLE 40 MG/10 ML VIAL INJ IV SCH (09:01)
[2021-07-01] MEDS: POTASSIUM EFFERVESENT TAB 25 MEQ GT SCH ×2 (09:01→21:43)
[2021-07-01] MEDS: acetaZOLAMIDE SODIUM 500 MG VL IV SCH (09:01)
[2021-07-01] MEDS: FUROSEMIDE INJECTION 100 MG in SODIUM CHL 0.9% 100 ML IV SCH (16:02)
[2021-07-01] MEDS: MIDAZOLAM DRIP 50 mg/50mL 50 ML IV SCH (16:02)
[2021-07-01] MEDS: NOREPINEPHRINE 8 MG/250ML KIT 250 ML IV SCH (20:48)
[2021-07-02] VITALS (95 sets, daily range): BP systolic 91–156; BP diastolic 30–74
[2021-07-02] MEDS: FREE WATER GT SCH ×2 (00:26→05:49)
[2021-07-02] MEDS: FUROSEMIDE INJECTION 100 MG in SODIUM CHL 0.9% 100 ML IV SCH ×3 (00:28→20:15)
[2021-07-02] MEDS: PROPOFOL 100 ML IV SCH ×3 (03:26→20:00)
[2021-07-02 05:52] LABS: Calcium 7.9 mg/dL (8.5-10.1); Potassium 3.5 mmol/L (3.5-5.1)
[2021-07-02] MEDS: IPRATROPIUM BROM 0.5 MG/2.5ML INH SOL NEB PRN ×3 (06:25→18:10)
[2021-07-02] MEDS: LEVALBUTEROL HCL 1.25 MG/3 ML NEB NEB SCH ×4 (06:26→18:10)
[2021-07-02] MEDS: ACCU-CHEK COMFORT CURVE STRIP VI SCH ×4 (06:39→22:00)
[2021-07-02] MEDS: MEROPENEM 1GM IVPB 100 ML IV SCH ×3 (06:43→22:00)
[2021-07-02] MEDS: InsuLIN REG 1unit/0.01ml Soln (100units/ml) SC SCH ×4 (06:44→22:00)
[2021-07-02] MEDS: SODIUM CHLOR 0.9% PF (SALINE LOCK) 10ML VIAL/SYR IV SCH ×2 (10:00→22:00)
[2021-07-02] MEDS: FAMOTIDINE (10MG/ML) 2ML VL IV SCH (10:00)
[2021-07-02] MEDS: POTASSIUM EFFERVESENT TAB 25 MEQ GT SCH ×2 (10:00→22:00)
[2021-07-02] MEDS: PANTOPRAZOLE 40 MG/10 ML VIAL INJ IV SCH (10:00)
[2021-07-02] MEDS: APIXABAN 5 MG TAB PO SCH ×2 (10:00→22:00)
[2021-07-02] MEDS: DIGOXIN 0.125 MG TAB PO SCH (10:00)
[2021-07-02] MEDS: NYSTATIN TOPICAL POWDER 15GM TOP SCH ×2 (10:01→22:00)
[2021-07-02] MEDS: acetaZOLAMIDE SODIUM 500 MG VL IV SCH (11:18)
[2021-07-02] MEDS: fentaNYL Drip 2500mCg/250mlNS 250 ML IV SCH (13:15)
[2021-07-02] MEDS: MIDAZOLAM DRIP 50 mg/50mL 50 ML IV SCH (16:30)
[2021-07-02] MEDS: NOREPINEPHRINE 8 MG/250ML KIT 250 ML IV SCH (19:45)
[2021-07-03] VITALS (99 sets, daily range): BP systolic 86–138; BP diastolic 27–56
[2021-07-03] MEDS: LEVALBUTEROL HCL 1.25 MG/3 ML NEB NEB SCH ×5 (00:16→23:33)
[2021-07-03] MEDS: fentaNYL Drip 2500mCg/250mlNS 250 ML IV SCH ×3 (01:45→18:22)
[2021-07-03] MEDS: PROPOFOL 100 ML IV SCH ×8 (02:00→22:00)
[2021-07-03 03:59] LABS: Albumin 1.7 g/dL (3.4-5.0); Calcium 7.5 mg/dL (8.5-10.1); Potassium 3.1 mmol/L (3.5-5.1)
[2021-07-03 04:04] LABS: Bilirubin, Total 0.7 mg/dL (0.2-1.0); Total Protein 5.2 g/dL (6.4-8.2)
[2021-07-03 05:29] LABS: BUN/Creatinine Ratio 76.1
[2021-07-03] MEDS: IPRATROPIUM BROM 0.5 MG/2.5ML INH SOL NEB PRN ×4 (05:57→23:33)
[2021-07-03] MEDS: POTASSIUM CHL 20MEQ/50ML 50 ML IV SCH ×4 (06:00→13:34)
[2021-07-03] MEDS: MEROPENEM 1GM IVPB 100 ML IV SCH ×3 (06:00→22:10)
[2021-07-03] MEDS: FUROSEMIDE INJECTION 100 MG in SODIUM CHL 0.9% 100 ML IV SCH ×2 (07:00→17:49)
[2021-07-03] MEDS: InsuLIN REG 1unit/0.01ml Soln (100units/ml) SC SCH ×4 (07:00→22:20)
[2021-07-03] MEDS: ACCU-CHEK COMFORT CURVE STRIP VI SCH ×4 (07:00→22:19)
[2021-07-03] MEDS: SODIUM CHLOR 0.9% PF (SALINE LOCK) 10ML VIAL/SYR IV SCH ×2 (10:00→22:10)
[2021-07-03] MEDS: acetaZOLAMIDE SODIUM 500 MG VL IV SCH (10:03)
[2021-07-03] MEDS: PANTOPRAZOLE 40 MG/10 ML VIAL INJ IV SCH (10:03)
[2021-07-03] MEDS: POTASSIUM EFFERVESENT TAB 25 MEQ GT SCH ×2 (10:03→22:09)
[2021-07-03] MEDS: NYSTATIN TOPICAL POWDER 15GM TOP SCH ×2 (10:04→22:11)
[2021-07-03] MEDS: APIXABAN 5 MG TAB PO SCH ×2 (10:04→22:11)
[2021-07-03] MEDS: NOREPINEPHRINE 8 MG/250ML KIT 250 ML IV SCH (10:39)
[2021-07-03] MEDS: MIDAZOLAM DRIP 50 mg/50mL 50 ML IV SCH (16:30)
[2021-07-04] VITALS (93 sets, daily range): BP systolic 95–163; BP diastolic 29–53
[2021-07-04] MEDS: PROPOFOL 100 ML IV SCH (02:00)
[2021-07-04 02:26] LABS: Basophils # (auto) 0.1 10 ^3/uL (0-0.2); Basophils % (auto) 1.3 % (0.0-2.0); Eosinophils # (auto) 0.5 10 ^3/uL (0-0.8); Eosinophils % (auto) 8.3 % (0.0-7.0); Lymphocytes # (auto) 1.2 10 ^3/uL (0.4-5.4); Monocytes # (auto) 0.8 10 ^3/uL (0-1.3)
[2021-07-04 02:28] LABS: Hematocrit 26.2 % (36.0-46.0); Hemoglobin 8.7 g/dL (12.2-16.2); Lymphocytes % (auto) 20.3 % (10.0-50.0); Mean Corpuscular Hemoglobin 26.3 pg (28.0-32.0); Mean Corpuscular Hgb Conc. 33.1 g/dL (32.0-36.0); Mean Corpuscular Volume 79.4 fL (80.0-100.0); Monocytes % (auto) 13.4 % (0.0-12.0); Neutrophils # (auto) 3.3 10 ^3/uL (1.6-8.6); Neutrophils % (auto) 56.7 % (37.0-80.0); Nucleated Red Blood Cells % 0.3 %; White Blood Cell 5.9 10^3/uL (4.4-10.8)
[2021-07-04 02:43] LABS: Albumin 1.7 g/dL (3.4-5.0); Calcium 7.7 mg/dL (8.5-10.1); Potassium 3.3 mmol/L (3.5-5.1)
[2021-07-04 02:46] LABS: BUN/Creatinine Ratio 81.1
[2021-07-04 02:48] LABS: Red Cell Distribution Width 20.5 % (11.8-14.3)
[2021-07-04 02:54] LABS: Bilirubin, Total 0.6 mg/dL (0.2-1.0)
[2021-07-04] MEDS: FUROSEMIDE INJECTION 100 MG in SODIUM CHL 0.9% 100 ML IV SCH ×3 (04:02→21:49)
[2021-07-04 04:39] LABS: Total Protein 5.2 g/dL (6.4-8.2)
[2021-07-04] MEDS: LEVALBUTEROL HCL 1.25 MG/3 ML NEB NEB SCH ×3 (05:44→18:09)
[2021-07-04] MEDS: IPRATROPIUM BROM 0.5 MG/2.5ML INH SOL NEB PRN ×2 (05:44→11:28)
[2021-07-04] MEDS: MEROPENEM 1GM IVPB 100 ML IV SCH ×3 (05:55→21:46)
[2021-07-04] MEDS: InsuLIN REG 1unit/0.01ml Soln (100units/ml) SC SCH ×4 (07:00→22:00)
[2021-07-04] MEDS: ACCU-CHEK COMFORT CURVE STRIP VI SCH ×4 (07:00→21:47)
[2021-07-04] MEDS: POTASSIUM EFFERVESENT TAB 25 MEQ GT SCH ×2 (09:11→21:45)
[2021-07-04] MEDS: PANTOPRAZOLE 40 MG/10 ML VIAL INJ IV SCH (09:12)
[2021-07-04] MEDS: SODIUM CHLOR 0.9% PF (SALINE LOCK) 10ML VIAL/SYR IV SCH ×2 (09:12→21:46)
[2021-07-04] MEDS: APIXABAN 5 MG TAB PO SCH ×2 (09:12→21:47)
[2021-07-04] MEDS: DIGOXIN 0.125 MG TAB PO SCH (09:13)
[2021-07-04] MEDS: NYSTATIN TOPICAL POWDER 15GM TOP SCH ×2 (09:14→21:48)
[2021-07-04] MEDS: acetaZOLAMIDE SODIUM 500 MG VL IV SCH (09:38)
[2021-07-04] MEDS ORDERED: POTASSIUM EFFERVESENT TAB 25 MEQ GT ONE (14:30)
[2021-07-04] MEDS: fentaNYL Drip 2500mCg/250mlNS 250 ML IV SCH (15:00)
[2021-07-04] MEDS: MIDAZOLAM DRIP 50 mg/50mL 50 ML IV SCH (16:30)
[2021-07-04] MEDS: NOREPINEPHRINE 8 MG/250ML KIT 250 ML IV SCH (17:38)
[2021-07-05] VITALS (98 sets, daily range): BP systolic 100–152; BP diastolic 32–84
[2021-07-05] MEDS: LEVALBUTEROL HCL 1.25 MG/3 ML NEB NEB SCH ×4 (01:46→18:28)
[2021-07-05] MEDS: fentaNYL Drip 2500mCg/250mlNS 250 ML IV SCH ×2 (03:45→16:15)
[2021-07-05 05:46] LABS: Basophils # (auto) 0.1 10 ^3/uL (0-0.2); Eosinophils # (auto) 0.3 10 ^3/uL (0-0.8); Monocytes # (auto) 0.8 10 ^3/uL (0-1.3); Neutrophils # (auto) 4.8 10 ^3/uL (1.6-8.6); White Blood Cell 7.2 10^3/uL (4.4-10.8)
[2021-07-05 05:50] LABS: Basophils % (auto) 1.1 % (0.0-2.0); Eosinophils % (auto) 4.2 % (0.0-7.0); Hematocrit 28.6 % (36.0-46.0); Hemoglobin 8.8 g/dL (12.2-16.2); Lymphocytes # (auto) 1.3 10 ^3/uL (0.4-5.4); Lymphocytes % (auto) 17.6 % (10.0-50.0); Mean Corpuscular Hemoglobin 24.3 pg (28.0-32.0); Mean Corpuscular Volume 78.5 fL (80.0-100.0); Monocytes % (auto) 10.8 % (0.0-12.0); Neutrophils % (auto) 66.3 % (37.0-80.0); Nucleated Red Blood Cells % 0.4 %; Red Blood Cells 3.64 10^6/uL (4.0-5.20)
[2021-07-05] MEDS: InsuLIN REG 1unit/0.01ml Soln (100units/ml) SC SCH ×4 (05:51→21:24)
[2021-07-05] MEDS: ACCU-CHEK COMFORT CURVE STRIP VI SCH ×4 (05:51→21:24)
[2021-07-05 06:06] LABS: Calcium 8.9 mg/dL (8.5-10.1); Potassium 3.2 mmol/L (3.5-5.1)
[2021-07-05 06:08] LABS: Red Cell Distribution Width 20.5 % (11.8-14.3)
[2021-07-05] MEDS: MEROPENEM 1GM IVPB 100 ML IV SCH ×3 (07:21→21:22)
[2021-07-05] MEDS: FUROSEMIDE INJECTION 100 MG in SODIUM CHL 0.9% 100 ML IV SCH ×2 (08:59→17:44)
[2021-07-05] MEDS: PANTOPRAZOLE 40 MG/10 ML VIAL INJ IV SCH (08:59)
[2021-07-05] MEDS: APIXABAN 5 MG TAB PO SCH ×2 (08:59→21:21)
[2021-07-05] MEDS: POTASSIUM EFFERVESENT TAB 25 MEQ GT SCH ×2 (09:00→21:22)
[2021-07-05] MEDS: acetaZOLAMIDE SODIUM 500 MG VL IV SCH (09:00)
[2021-07-05] MEDS: SODIUM CHLOR 0.9% PF (SALINE LOCK) 10ML VIAL/SYR IV SCH ×2 (09:00→21:22)
[2021-07-05] MEDS: NYSTATIN TOPICAL POWDER 15GM TOP SCH ×2 (09:01→21:25)
[2021-07-05] MEDS ORDERED: POTASSIUM EFFERVESENT TAB 25 MEQ GT ONE (15:15)
[2021-07-05] MEDS: MIDAZOLAM DRIP 50 mg/50mL 50 ML IV SCH (16:24)
[2021-07-05] MEDS: FREE WATER GT SCH (17:10)
[2021-07-05] MEDS: NOREPINEPHRINE 8 MG/250ML KIT 250 ML IV SCH (19:45)
[2021-07-05] MEDS: PROPOFOL 100 ML IV SCH (21:25)
[2021-07-06] VITALS (96 sets, daily range): BP systolic 93–138; BP diastolic 35–57
[2021-07-06] MEDS: LEVALBUTEROL HCL 1.25 MG/3 ML NEB NEB SCH ×4 (00:45→23:39)
[2021-07-06] MEDS: fentaNYL Drip 2500mCg/250mlNS 250 ML IV SCH ×2 (03:47→17:15)
[2021-07-06] MEDS: FUROSEMIDE INJECTION 100 MG in SODIUM CHL 0.9% 100 ML IV SCH ×2 (04:15→14:41)
[2021-07-06 05:47] LABS: Basophils # (auto) 0.1 10 ^3/uL (0-0.2); Eosinophils # (auto) 0.3 10 ^3/uL (0-0.8)
[2021-07-06 05:48] LABS: Basophils % (auto) 0.8 % (0.0-2.0); Hematocrit 29.3 % (36.0-46.0); Lymphocytes # (auto) 1.7 10 ^3/uL (0.4-5.4); Lymphocytes % (auto) 21.6 % (10.0-50.0); Mean Corpuscular Hemoglobin 24.3 pg (28.0-32.0); Mean Corpuscular Hgb Conc. 30.9 g/dL (32.0-36.0); Mean Corpuscular Volume 78.7 fL (80.0-100.0); Monocytes # (auto) 0.8 10 ^3/uL (0-1.3); Monocytes % (auto) 10.2 % (0.0-12.0); Neutrophils # (auto) 5.1 10 ^3/uL (1.6-8.6); Neutrophils % (auto) 63.4 % (37.0-80.0); Nucleated Red Blood Cells % 0.2 %; Red Blood Cells 3.72 10^6/uL (4.0-5.20); White Blood Cell 8.1 10^3/uL (4.4-10.8)
[2021-07-06] MEDS: FREE WATER GT SCH ×5 (06:00→21:25)
[2021-07-06 06:07] LABS: BUN/Creatinine Ratio 58.7; Calcium 9.1 mg/dL (8.5-10.1)
[2021-07-06 06:09] LABS: Red Cell Distribution Width 20.4 % (11.8-14.3)
[2021-07-06] MEDS: MEROPENEM 1GM IVPB 100 ML IV SCH ×3 (06:25→21:28)
[2021-07-06] MEDS: ACCU-CHEK COMFORT CURVE STRIP VI SCH ×4 (06:25→21:28)
[2021-07-06] MEDS: InsuLIN REG 1unit/0.01ml Soln (100units/ml) SC SCH ×4 (06:26→21:31)
[2021-07-06] MEDS: IPRATROPIUM BROM 0.5 MG/2.5ML INH SOL NEB PRN ×3 (08:36→23:39)
[2021-07-06] MEDS: PANTOPRAZOLE 40 MG/10 ML VIAL INJ IV SCH (09:00)
[2021-07-06] MEDS: DIGOXIN 0.125 MG TAB PO SCH (09:00)
[2021-07-06] MEDS: APIXABAN 5 MG TAB PO SCH ×2 (09:02→21:27)
[2021-07-06] MEDS: SODIUM CHLOR 0.9% PF (SALINE LOCK) 10ML VIAL/SYR IV SCH ×2 (09:02→21:28)
[2021-07-06] MEDS: NYSTATIN TOPICAL POWDER 15GM TOP SCH ×2 (09:02→21:28)
[2021-07-06] MEDS: acetaZOLAMIDE SODIUM 500 MG VL IV SCH (09:06)
[2021-07-06] MEDS: POTASSIUM EFFERVESENT TAB 25 MEQ GT SCH ×3 (10:00→21:27)
[2021-07-06] MEDS ORDERED: BUMETANIDE 2.5mg/10ml (0.25 mg/ml) INJ IV ONE (15:00)
[2021-07-06] MEDS ORDERED: POTASSIUM EFFERVESENT TAB 25 MEQ GT ONE (15:00)
[2021-07-06] MEDS: MIDAZOLAM DRIP 50 mg/50mL 50 ML IV SCH (15:44)
[2021-07-06] MEDS: PROPOFOL 100 ML IV SCH (19:30)
[2021-07-06] MEDS: NOREPINEPHRINE 8 MG/250ML KIT 250 ML IV SCH (19:45)
[2021-07-07] VITALS (94 sets, daily range): BP systolic 100–158; BP diastolic 36–66
[2021-07-07] MEDS: FUROSEMIDE INJECTION 100 MG in SODIUM CHL 0.9% 100 ML IV SCH ×3 (01:15→21:25)
[2021-07-07] MEDS: FREE WATER GT SCH ×6 (02:00→21:25)
[2021-07-07 05:45] LABS: BUN/Creatinine Ratio 54.7; Calcium 8.9 mg/dL (8.5-10.1); Potassium 3.4 mmol/L (3.5-5.1)
[2021-07-07] MEDS: fentaNYL Drip 2500mCg/250mlNS 250 ML IV SCH ×2 (05:45→17:36)
[2021-07-07] MEDS: MEROPENEM 1GM IVPB 100 ML IV SCH (05:58)
[2021-07-07] MEDS: InsuLIN REG 1unit/0.01ml Soln (100units/ml) SC SCH ×4 (06:15→21:25)
[2021-07-07] MEDS: ACCU-CHEK COMFORT CURVE STRIP VI SCH ×4 (06:16→21:26)
[2021-07-07] MEDS: LEVALBUTEROL HCL 1.25 MG/3 ML NEB NEB SCH ×3 (07:14→18:30)
[2021-07-07] MEDS: POTASSIUM EFFERVESENT TAB 25 MEQ GT SCH ×2 (09:09→21:23)
[2021-07-07] MEDS: APIXABAN 5 MG TAB PO SCH ×2 (09:09→21:24)
[2021-07-07] MEDS: PANTOPRAZOLE 40 MG/10 ML VIAL INJ IV SCH (09:09)
[2021-07-07] MEDS: NYSTATIN TOPICAL POWDER 15GM TOP SCH ×2 (09:09→21:26)
[2021-07-07] MEDS: SODIUM CHLOR 0.9% PF (SALINE LOCK) 10ML VIAL/SYR IV SCH ×2 (09:10→21:24)
[2021-07-07] MEDS: acetaZOLAMIDE SODIUM 500 MG VL IV SCH (09:10)
[2021-07-07] MEDS ORDERED: POTASSIUM EFFERVESENT TAB 25 MEQ GT ONE (12:15)
[2021-07-07] MEDS: ALBUMIN 25% 50 ML IV SCH ×2 (12:39→21:23)
[2021-07-07] MEDS: MIDAZOLAM DRIP 50 mg/50mL 50 ML IV SCH (16:30)
[2021-07-07] MEDS: PROPOFOL 100 ML IV SCH (16:30)
[2021-07-07] MEDS: IPRATROPIUM BROM 0.5 MG/2.5ML INH SOL NEB PRN (18:30)
[2021-07-07] MEDS: NOREPINEPHRINE 8 MG/250ML KIT 250 ML IV SCH (19:45)
[2021-07-08] VITALS (97 sets, daily range): BP systolic 108–162; BP diastolic 44–69
[2021-07-08] MEDS: FREE WATER GT SCH ×6 (02:00→21:29)
[2021-07-08] MEDS: FUROSEMIDE INJECTION 100 MG in SODIUM CHL 0.9% 100 ML IV SCH ×2 (06:22→16:30)
[2021-07-08] MEDS: fentaNYL Drip 2500mCg/250mlNS 250 ML IV SCH ×2 (06:23→19:15)
[2021-07-08] MEDS: InsuLIN REG 1unit/0.01ml Soln (100units/ml) SC SCH ×4 (06:23→22:18)
[2021-07-08] MEDS: ACCU-CHEK COMFORT CURVE STRIP VI SCH ×4 (06:23→22:18)
[2021-07-08] MEDS: ALBUMIN 25% 50 ML IV SCH (06:26)
[2021-07-08] MEDS: IPRATROPIUM BROM 0.5 MG/2.5ML INH SOL NEB PRN ×4 (06:37→23:03)
[2021-07-08] MEDS: LEVALBUTEROL HCL 1.25 MG/3 ML NEB NEB SCH ×5 (06:37→23:03)
[2021-07-08 06:56] LABS: Basophils # (auto) 0.1 10 ^3/uL (0-0.2); Eosinophils # (auto) 0.3 10 ^3/uL (0-0.8); Lymphocytes # (auto) 1.7 10 ^3/uL (0.4-5.4); Mean Corpuscular Hemoglobin 23.9 pg (28.0-32.0); Monocytes # (auto) 0.9 10 ^3/uL (0-1.3); Nucleated Red Blood Cells % 0.1 %
[2021-07-08 06:58] LABS: Basophils % (auto) 1.2 % (0.0-2.0); Eosinophils % (auto) 3.3 % (0.0-7.0); Hemoglobin 8.9 g/dL (12.2-16.2); Lymphocytes % (auto) 18.7 % (10.0-50.0); Mean Corpuscular Hgb Conc. 30.7 g/dL (32.0-36.0); Mean Corpuscular Volume 77.9 fL (80.0-100.0); Monocytes % (auto) 10.1 % (0.0-12.0); Neutrophils # (auto) 6.2 10 ^3/uL (1.6-8.6); Neutrophils % (auto) 66.7 % (37.0-80.0); Red Blood Cells 3.72 10^6/uL (4.0-5.20); White Blood Cell 9.3 10^3/uL (4.4-10.8)
[2021-07-08 07:05] LABS: Calcium 9.2 mg/dL (8.5-10.1); Potassium 3.1 mmol/L (3.5-5.1)
[2021-07-08 07:08] LABS: BUN/Creatinine Ratio 59.2
[2021-07-08 07:22] LABS: Red Cell Distribution Width 21.1 % (11.8-14.3)
[2021-07-08] MEDS: PANTOPRAZOLE 40 MG/10 ML VIAL INJ IV SCH (09:01)
[2021-07-08] MEDS: APIXABAN 5 MG TAB PO SCH ×2 (09:02→22:17)
[2021-07-08] MEDS: POTASSIUM EFFERVESENT TAB 25 MEQ GT SCH ×2 (09:02→22:16)
[2021-07-08] MEDS: SODIUM CHLOR 0.9% PF (SALINE LOCK) 10ML VIAL/SYR IV SCH ×2 (09:02→22:16)
[2021-07-08] MEDS: DIGOXIN 0.125 MG TAB PO SCH (09:02)
[2021-07-08] MEDS: acetaZOLAMIDE SODIUM 500 MG VL IV SCH (09:02)
[2021-07-08] MEDS: NYSTATIN TOPICAL POWDER 15GM TOP SCH ×2 (09:03→22:18)
[2021-07-08] MEDS: PROPOFOL 100 ML IV SCH (13:08)
[2021-07-08] MEDS ORDERED: POTASSIUM CHL 20MEQ/50ML 50 ML IV SCH (14:30)
[2021-07-08] MEDS ORDERED: POTASSIUM EFFERVESENT TAB 25 MEQ GT ONE (15:45)
[2021-07-08] MEDS: D5W 5% 1,000 ML IV SCH ×2 (15:52→22:19)
[2021-07-08] MEDS: MIDAZOLAM DRIP 50 mg/50mL 50 ML IV SCH (16:09)
[2021-07-08] MEDS: NOREPINEPHRINE 8 MG/250ML KIT 250 ML IV SCH (19:45)
[2021-07-09] VITALS (91 sets, daily range): BP systolic 89–157; BP diastolic 34–69
[2021-07-09] MEDS: FREE WATER GT SCH ×6 (02:00→22:48)
[2021-07-09] MEDS: FUROSEMIDE INJECTION 100 MG in SODIUM CHL 0.9% 100 ML IV SCH ×3 (03:31→22:53)
[2021-07-09 05:25] LABS: Basophils # (auto) 0.1 10 ^3/uL (0-0.2); Basophils % (auto) 0.6 % (0.0-2.0); Eosinophils # (auto) 0.4 10 ^3/uL (0-0.8); Eosinophils % (auto) 4.6 % (0.0-7.0); Hemoglobin 8.7 g/dL (12.2-16.2); Lymphocytes # (auto) 1.7 10 ^3/uL (0.4-5.4); Lymphocytes % (auto) 19.1 % (10.0-50.0); Mean Corpuscular Hemoglobin 24.5 pg (28.0-32.0); Mean Corpuscular Hgb Conc. 31.1 g/dL (32.0-36.0); Mean Corpuscular Volume 78.9 fL (80.0-100.0); Monocytes # (auto) 0.8 10 ^3/uL (0-1.3); Monocytes % (auto) 8.9 % (0.0-12.0); Neutrophils # (auto) 6.1 10 ^3/uL (1.6-8.6); Neutrophils % (auto) 66.8 % (37.0-80.0); Red Blood Cells 3.55 10^6/uL (4.0-5.20); Red Cell Distribution Width 21.5 % (11.8-14.3); White Blood Cell 9.1 10^3/uL (4.4-10.8)
[2021-07-09 05:44] LABS: Calcium 8.6 mg/dL (8.5-10.1)
[2021-07-09 05:47] LABS: BUN/Creatinine Ratio 42.9
[2021-07-09] MEDS: IPRATROPIUM BROM 0.5 MG/2.5ML INH SOL NEB PRN ×2 (06:17→19:08)
[2021-07-09] MEDS: LEVALBUTEROL HCL 1.25 MG/3 ML NEB NEB SCH ×3 (06:17→19:08)
[2021-07-09] MEDS: ACCU-CHEK COMFORT CURVE STRIP VI SCH ×4 (06:20→22:52)
[2021-07-09] MEDS: D5W 5% 1,000 ML IV SCH (06:20)
[2021-07-09] MEDS: InsuLIN REG 1unit/0.01ml Soln (100units/ml) SC SCH ×4 (06:21→22:58)
[2021-07-09] MEDS: fentaNYL Drip 2500mCg/250mlNS 250 ML IV SCH (07:45)
[2021-07-09] MEDS: SODIUM CHLOR 0.9% PF (SALINE LOCK) 10ML VIAL/SYR IV SCH ×2 (09:58→22:50)
[2021-07-09] MEDS: acetaZOLAMIDE SODIUM 500 MG VL IV SCH (09:58)
[2021-07-09] MEDS: PANTOPRAZOLE 40 MG/10 ML VIAL INJ IV SCH (09:58)
[2021-07-09] MEDS: APIXABAN 5 MG TAB PO SCH ×2 (09:58→22:51)
[2021-07-09] MEDS: POTASSIUM EFFERVESENT TAB 25 MEQ GT SCH ×2 (09:58→22:50)
[2021-07-09] MEDS: NYSTATIN TOPICAL POWDER 15GM TOP SCH ×2 (09:59→22:51)
[2021-07-09] MEDS: PROPOFOL 100 ML IV SCH (09:59)
[2021-07-09] MEDS: POTASSIUM CHL 20MEQ/50ML 50 ML IV SCH ×3 (11:27→15:08)
[2021-07-09] MEDS: MIDAZOLAM DRIP 50 mg/50mL 50 ML IV SCH (13:51)
[2021-07-09] MEDS: Vital High Protein 1liter Bottle GT SCH (15:23)
[2021-07-10] VITALS (93 sets, daily range): BP systolic 86–153; BP diastolic 33–80
[2021-07-10] MEDS: FREE WATER GT SCH ×6 (02:00→22:14)
[2021-07-10] MEDS: IPRATROPIUM BROM 0.5 MG/2.5ML INH SOL NEB PRN ×4 (02:19→18:03)
[2021-07-10] MEDS: LEVALBUTEROL HCL 1.25 MG/3 ML NEB NEB SCH ×4 (02:19→18:03)
[2021-07-10 04:16] LABS: Basophils # (auto) 0.1 10 ^3/uL (0-0.2); Lymphocytes # (auto) 1.9 10 ^3/uL (0.4-5.4); Mean Corpuscular Volume 77.7 fL (80.0-100.0); Nucleated Red Blood Cells % 0.1 %
[2021-07-10 04:18] LABS: Basophils % (auto) 0.6 % (0.0-2.0); Eosinophils # (auto) 0.4 10 ^3/uL (0-0.8); Eosinophils % (auto) 3.7 % (0.0-7.0); Hematocrit 28.6 % (36.0-46.0); Hemoglobin 9.1 g/dL (12.2-16.2); Lymphocytes % (auto) 15.7 % (10.0-50.0); Mean Corpuscular Hemoglobin 24.7 pg (28.0-32.0); Mean Corpuscular Hgb Conc. 31.8 g/dL (32.0-36.0); Monocytes % (auto) 8.6 % (0.0-12.0); Neutrophils # (auto) 8.5 10 ^3/uL (1.6-8.6); Neutrophils % (auto) 71.4 % (37.0-80.0); Red Blood Cells 3.68 10^6/uL (4.0-5.20); Red Cell Distribution Width 21.6 % (11.8-14.3); White Blood Cell 11.9 10^3/uL (4.4-10.8)
[2021-07-10 04:42] LABS: Calcium 9.1 mg/dL (8.5-10.1); Potassium 3.3 mmol/L (3.5-5.1)
[2021-07-10 04:46] LABS: BUN/Creatinine Ratio 54.7
[2021-07-10] MEDS: ACCU-CHEK COMFORT CURVE STRIP VI SCH ×4 (06:38→22:15)
[2021-07-10] MEDS: InsuLIN REG 1unit/0.01ml Soln (100units/ml) SC SCH ×4 (06:38→22:43)
[2021-07-10] MEDS: fentaNYL Drip 2500mCg/250mlNS 250 ML IV SCH ×2 (08:45→21:15)
[2021-07-10] MEDS: NOREPINEPHRINE 8 MG/250ML KIT 250 ML IV SCH ×2 (08:45→19:45)
[2021-07-10] MEDS: PROPOFOL 100 ML IV SCH (08:45)
[2021-07-10] MEDS: FUROSEMIDE INJECTION 100 MG in SODIUM CHL 0.9% 100 ML IV SCH ×2 (08:53→17:06)
[2021-07-10] MEDS: PANTOPRAZOLE 40 MG/10 ML VIAL INJ IV SCH (09:29)
[2021-07-10] MEDS: POTASSIUM EFFERVESENT TAB 25 MEQ GT SCH ×2 (09:29→22:14)
[2021-07-10] MEDS: SODIUM CHLOR 0.9% PF (SALINE LOCK) 10ML VIAL/SYR IV SCH ×2 (09:31→22:15)
[2021-07-10] MEDS: DIGOXIN 0.125 MG TAB PO SCH (09:31)
[2021-07-10] MEDS: acetaZOLAMIDE SODIUM 500 MG VL IV SCH (09:31)
[2021-07-10] MEDS: APIXABAN 5 MG TAB PO SCH ×2 (09:31→22:15)
[2021-07-10] MEDS: NYSTATIN TOPICAL POWDER 15GM TOP SCH ×2 (11:05→22:16)
[2021-07-10] MEDS: MIDAZOLAM DRIP 50 mg/50mL 50 ML IV SCH (11:05)
[2021-07-10] MEDS ORDERED: POTASSIUM CHL 20MEQ/50ML 50 ML IV ONE (12:15)
[2021-07-10] MEDS: Vital High Protein 1liter Bottle GT SCH (14:55)
[2021-07-11] VITALS (99 sets, daily range): BP systolic 92–153; BP diastolic 45–103
[2021-07-11] MEDS: IPRATROPIUM BROM 0.5 MG/2.5ML INH SOL NEB PRN ×3 (00:20→23:47)
[2021-07-11] MEDS: LEVALBUTEROL HCL 1.25 MG/3 ML NEB NEB SCH ×4 (00:21→23:47)
[2021-07-11] MEDS: FREE WATER GT SCH ×3 (02:00→09:35)
[2021-07-11 03:40] LABS: Basophils # (auto) 0.1 10 ^3/uL (0-0.2); Eosinophils # (auto) 0.4 10 ^3/uL (0-0.8); Lymphocytes # (auto) 2.1 10 ^3/uL (0.4-5.4)
[2021-07-11 03:44] LABS: Basophils % (auto) 0.6 % (0.0-2.0); Eosinophils % (auto) 3.4 % (0.0-7.0); Hemoglobin 9.1 g/dL (12.2-16.2); Lymphocytes % (auto) 17.2 % (10.0-50.0); Mean Corpuscular Hgb Conc. 31.5 g/dL (32.0-36.0); Mean Corpuscular Volume 76.3 fL (80.0-100.0); Monocytes % (auto) 8.5 % (0.0-12.0); Neutrophils # (auto) 8.6 10 ^3/uL (1.6-8.6); Neutrophils % (auto) 70.3 % (37.0-80.0); White Blood Cell 12.3 10^3/uL (4.4-10.8)
[2021-07-11 03:48] LABS: Red Cell Distribution Width 21.1 % (11.8-14.3)
[2021-07-11 04:00] LABS: Potassium 3.1 mmol/L (3.5-5.1)
[2021-07-11 04:01] LABS: BUN/Creatinine Ratio 45.6; Calcium 8.7 mg/dL (8.5-10.1)
[2021-07-11] MEDS: PROPOFOL 100 ML IV SCH (04:30)
[2021-07-11] MEDS: FUROSEMIDE INJECTION 100 MG in SODIUM CHL 0.9% 100 ML IV SCH ×2 (05:50→13:42)
[2021-07-11] MEDS: ACCU-CHEK COMFORT CURVE STRIP VI SCH ×4 (06:17→22:00)
[2021-07-11] MEDS: InsuLIN REG 1unit/0.01ml Soln (100units/ml) SC SCH ×4 (06:20→23:11)
[2021-07-11 08:41] LABS: Magnesium 2.5 mg/dL (1.6-2.6); Phosphorus 3.7 mg/dL (2.5-4.90)
[2021-07-11] MEDS: POTASSIUM EFFERVESENT TAB 25 MEQ GT SCH ×2 (09:35→23:10)
[2021-07-11] MEDS: PANTOPRAZOLE 40 MG/10 ML VIAL INJ IV SCH (09:36)
[2021-07-11] MEDS: SODIUM CHLOR 0.9% PF (SALINE LOCK) 10ML VIAL/SYR IV SCH ×2 (09:36→22:00)
[2021-07-11] MEDS: APIXABAN 5 MG TAB PO SCH ×2 (09:36→23:10)
[2021-07-11] MEDS: NYSTATIN TOPICAL POWDER 15GM TOP SCH ×2 (09:37→22:21)
[2021-07-11] MEDS: acetaZOLAMIDE SODIUM 500 MG VL IV SCH (09:38)
[2021-07-11] MEDS: fentaNYL Drip 2500mCg/250mlNS 250 ML IV SCH (09:45)
[2021-07-11] MEDS ORDERED: POTASSIUM EFFERVESENT TAB 25 MEQ GT ONE ×2 (10:15→10:45)
[2021-07-11] MEDS ORDERED: levoFLOXacin 500MG 100 ML IV ONE (10:15)
[2021-07-11] MEDS ORDERED: BUMETANIDE 2.5mg/10ml (0.25 mg/ml) INJ IV ONE (10:45)
[2021-07-11] MEDS ORDERED: EPINEPHrine HCL 0.5 ML NEB NEB PRN (11:45)
[2021-07-11] MEDS: MIDAZOLAM DRIP 50 mg/50mL 50 ML IV SCH (16:30)
[2021-07-11] MEDS: ALBUMIN 25% 50 ML IV SCH (17:53)
[2021-07-11] MEDS: NOREPINEPHRINE 8 MG/250ML KIT 250 ML IV SCH (19:45)
[2021-07-12] VITALS (91 sets, daily range): BP systolic 96–146; BP diastolic 44–68
[2021-07-12] MEDS: FUROSEMIDE INJECTION 100 MG in SODIUM CHL 0.9% 100 ML IV SCH (00:51)
[2021-07-12] MEDS: PROPOFOL 100 ML IV SCH (01:30)
[2021-07-12] MEDS: ALBUMIN 25% 50 ML IV SCH ×2 (02:09→09:07)
[2021-07-12] MEDS: IPRATROPIUM BROM 0.5 MG/2.5ML INH SOL NEB PRN ×3 (06:04→18:15)
[2021-07-12] MEDS: LEVALBUTEROL HCL 1.25 MG/3 ML NEB NEB SCH ×3 (06:04→18:14)
[2021-07-12] MEDS: InsuLIN REG 1unit/0.01ml Soln (100units/ml) SC SCH ×4 (06:11→21:21)
[2021-07-12] MEDS: ACCU-CHEK COMFORT CURVE STRIP VI SCH ×4 (06:11→21:22)
[2021-07-12 06:30] LABS: Albumin 2.8 g/dL (3.4-5.0); Calcium 9.3 mg/dL (8.5-10.1)
[2021-07-12 06:33] LABS: BUN/Creatinine Ratio 49.1; Bilirubin, Total 0.8 mg/dL (0.2-1.0); Total Protein 6.4 g/dL (6.4-8.2)
[2021-07-12 06:34] LABS: Potassium 2.9 mmol/L (3.5-5.1)
[2021-07-12] MEDS ORDERED: FUROSEMIDE INJECTION 100 MG in SODIUM CHL 0.9% 100 ML IV SCH ×2 (07:15→08:00)
[2021-07-12 07:44] LABS: Basophils # (auto) 0.1 10 ^3/uL (0-0.2)
[2021-07-12 07:46] LABS: Basophils % (auto) 0.7 % (0.0-2.0); Eosinophils # (auto) 0.4 10 ^3/uL (0-0.8); Hematocrit 27.7 % (36.0-46.0); Hemoglobin 8.7 g/dL (12.2-16.2); Lymphocytes # (auto) 1.7 10 ^3/uL (0.4-5.4); Lymphocytes % (auto) 17.4 % (10.0-50.0); Mean Corpuscular Hgb Conc. 31.3 g/dL (32.0-36.0); Monocytes % (auto) 10.6 % (0.0-12.0); Neutrophils # (auto) 6.7 10 ^3/uL (1.6-8.6); Neutrophils % (auto) 67.3 % (37.0-80.0); Nucleated Red Blood Cells % 0.1 %; White Blood Cell 9.9 10^3/uL (4.4-10.8)
[2021-07-12 07:47] LABS: Mean Corpuscular Hemoglobin 24.1 pg (28.0-32.0)
[2021-07-12] MEDS: levoFLOXacin 500MG 100 ML IV SCH (09:06)
[2021-07-12] MEDS: APIXABAN 5 MG TAB PO SCH ×2 (09:07→20:50)
[2021-07-12] MEDS: POTASSIUM EFFERVESENT TAB 25 MEQ GT SCH ×2 (09:07→20:50)
[2021-07-12] MEDS: PANTOPRAZOLE 40 MG/10 ML VIAL INJ IV SCH (09:07)
[2021-07-12] MEDS: SODIUM CHLOR 0.9% PF (SALINE LOCK) 10ML VIAL/SYR IV SCH ×2 (09:08→21:22)
[2021-07-12] MEDS: acetaZOLAMIDE SODIUM 500 MG VL IV SCH (09:18)
[2021-07-12] MEDS: DIGOXIN 0.125 MG TAB PO SCH (09:31)
[2021-07-12] MEDS: NYSTATIN TOPICAL POWDER 15GM TOP SCH ×2 (09:31→21:21)
[2021-07-12] MEDS ORDERED: SOD CHL 0.9%/ KCL 40MEQ 1,000 ML IV SCH (10:00)
[2021-07-12] MEDS ORDERED: POTASSIUM CHL 20MEQ/50ML 50 ML IV ONE (10:52)
[2021-07-12] MEDS: POTASSIUM CHL 20MEQ/50ML 50 ML IV SCH ×2 (11:00→13:08)
[2021-07-12] MEDS: BUMETANIDE 2.5mg/10ml (0.25 mg/ml) INJ IV SCH (19:18)
[2021-07-12] MEDS: NOREPINEPHRINE 8 MG/250ML KIT 250 ML IV SCH (19:45)
[2021-07-13] VITALS (65 sets, daily range): BP systolic 85–164; BP diastolic 36–70
[2021-07-13] MEDS: LEVALBUTEROL HCL 1.25 MG/3 ML NEB NEB SCH ×4 (00:33→19:24)
[2021-07-13] MEDS: IPRATROPIUM BROM 0.5 MG/2.5ML INH SOL NEB PRN ×4 (00:33→19:24)
[2021-07-13 04:05] LABS: BUN/Creatinine Ratio 46.7; Calcium 8.8 mg/dL (8.5-10.1); Magnesium 2.4 mg/dL (1.6-2.6); Potassium 3.2 mmol/L (3.5-5.1)
[2021-07-13] MEDS: BUMETANIDE 2.5mg/10ml (0.25 mg/ml) INJ IV SCH ×2 (06:29→18:06)
[2021-07-13] MEDS: ACCU-CHEK COMFORT CURVE STRIP VI SCH ×4 (06:30→21:53)
[2021-07-13] MEDS: InsuLIN REG 1unit/0.01ml Soln (100units/ml) SC SCH ×4 (06:30→21:53)
[2021-07-13 08:17] LABS: Basophils # (auto) 0.1 10 ^3/uL (0-0.2); Eosinophils # (auto) 0.3 10 ^3/uL (0-0.8); Lymphocytes # (auto) 1.8 10 ^3/uL (0.4-5.4)
[2021-07-13 08:18] LABS: Basophils % (auto) 1.1 % (0.0-2.0); Eosinophils % (auto) 3.3 % (0.0-7.0); Hematocrit 27.9 % (36.0-46.0); Hemoglobin 8.7 g/dL (12.2-16.2); Lymphocytes % (auto) 20.6 % (10.0-50.0); Mean Corpuscular Hgb Conc. 31.2 g/dL (32.0-36.0); Monocytes % (auto) 11.9 % (0.0-12.0); Neutrophils # (auto) 5.4 10 ^3/uL (1.6-8.6); Neutrophils % (auto) 63.1 % (37.0-80.0); Red Blood Cells 3.62 10^6/uL (4.0-5.20); White Blood Cell 8.6 10^3/uL (4.4-10.8)
[2021-07-13 08:22] LABS: Mean Corpuscular Volume 77.1 fL (80.0-100.0)
[2021-07-13 08:23] LABS: Red Cell Distribution Width 21.1 % (11.8-14.3)
[2021-07-13] MEDS: levoFLOXacin 500MG 100 ML IV SCH (09:47)
[2021-07-13] MEDS: PANTOPRAZOLE 40 MG/10 ML VIAL INJ IV SCH (09:48)
[2021-07-13] MEDS: APIXABAN 5 MG TAB PO SCH ×2 (09:48→21:52)
[2021-07-13] MEDS: POTASSIUM EFFERVESENT TAB 25 MEQ GT SCH ×2 (09:48→21:52)
[2021-07-13] MEDS: SODIUM CHLOR 0.9% PF (SALINE LOCK) 10ML VIAL/SYR IV SCH ×2 (09:49→21:52)
[2021-07-13] MEDS: NYSTATIN TOPICAL POWDER 15GM TOP SCH ×2 (09:50→21:52)
[2021-07-13] MEDS: POTASSIUM CHL 20MEQ/50ML 50 ML IV SCH ×2 (14:32→16:36)
[2021-07-13] MEDS: NOREPINEPHRINE 8 MG/250ML KIT 250 ML IV SCH (19:45)
[2021-07-14] VITALS (28 sets, daily range): BP systolic 102–158; BP diastolic 52–87
[2021-07-14] MEDS: LEVALBUTEROL HCL 1.25 MG/3 ML NEB NEB SCH ×4 (01:18→18:40)
[2021-07-14] MEDS: IPRATROPIUM BROM 0.5 MG/2.5ML INH SOL NEB PRN ×2 (01:18→18:41)
[2021-07-14 04:53] LABS: Basophils # (auto) 0.1 10 ^3/uL (0-0.2)
[2021-07-14 04:55] LABS: Basophils % (auto) 0.9 % (0.0-2.0); Eosinophils # (auto) 0.3 10 ^3/uL (0-0.8); Eosinophils % (auto) 3.7 % (0.0-7.0); Lymphocytes # (auto) 2.2 10 ^3/uL (0.4-5.4); Lymphocytes % (auto) 23.7 % (10.0-50.0); Mean Corpuscular Hemoglobin 23.8 pg (28.0-32.0); Mean Corpuscular Volume 76.6 fL (80.0-100.0); Monocytes # (auto) 1.2 10 ^3/uL (0-1.3); Monocytes % (auto) 12.7 % (0.0-12.0); Neutrophils # (auto) 5.5 10 ^3/uL (1.6-8.6); Nucleated Red Blood Cells % 0.1 %; Red Blood Cells 3.78 10^6/uL (4.0-5.20); White Blood Cell 9.3 10^3/uL (4.4-10.8)
[2021-07-14 05:01] LABS: Red Cell Distribution Width 21.2 % (11.8-14.3)
[2021-07-14] MEDS: BUMETANIDE 2.5mg/10ml (0.25 mg/ml) INJ IV SCH ×2 (05:18→17:31)
[2021-07-14 05:34] LABS: Potassium 3.8 mmol/L (3.5-5.1)
[2021-07-14 05:38] LABS: Albumin 2.6 g/dL (3.4-5.0); Calcium 9.5 mg/dL (8.5-10.1)
[2021-07-14 05:40] LABS: Bilirubin, Total 0.5 mg/dL (0.2-1.0); Total Protein 6.5 g/dL (6.4-8.2)
[2021-07-14] MEDS: ACCU-CHEK COMFORT CURVE STRIP VI SCH ×4 (07:00→22:22)
[2021-07-14] MEDS: InsuLIN REG 1unit/0.01ml Soln (100units/ml) SC SCH ×4 (07:00→22:00)
[2021-07-14] MEDS: levoFLOXacin 500MG 100 ML IV SCH (09:06)
[2021-07-14] MEDS: POTASSIUM EFFERVESENT TAB 25 MEQ GT SCH ×2 (09:06→22:21)
[2021-07-14] MEDS: PANTOPRAZOLE 40 MG/10 ML VIAL INJ IV SCH (09:06)
[2021-07-14] MEDS: APIXABAN 5 MG TAB PO SCH ×2 (09:06→22:22)
[2021-07-14] MEDS: NYSTATIN TOPICAL POWDER 15GM TOP SCH ×2 (09:08→22:22)
[2021-07-14] MEDS: DIGOXIN 0.125 MG TAB PO SCH (09:08)
[2021-07-14] MEDS ORDERED: VANCOMYCIN PER PHARMACY 0 MG IV SCH (11:30)
[2021-07-14] MEDS: PIPERACILLIN-TAZOB 3.375GM 100 ML IV SCH ×3 (12:23→23:45)
[2021-07-14] MEDS: VANCOMYCIN 1GM/250ML 250 ML IV SCH (17:20)
[2021-07-14 17:55] LABS: INR 1.28 (0.9-1.15); Partial Thromboplastin Time 36.3 sec (23.6-33.0)
[2021-07-14] MEDS: NOREPINEPHRINE 8 MG/250ML KIT 250 ML IV SCH (19:45)
[2021-07-15] VITALS (38 sets, daily range): BP systolic 104–142; BP diastolic 46–84
[2021-07-15] MEDS: IPRATROPIUM BROM 0.5 MG/2.5ML INH SOL NEB PRN ×3 (00:09→12:26)
[2021-07-15] MEDS: LEVALBUTEROL HCL 1.25 MG/3 ML NEB NEB SCH ×4 (00:09→23:37)
[2021-07-15] MEDS: VANCOMYCIN 1GM/250ML 250 ML IV SCH ×3 (02:34→21:22)
[2021-07-15 04:22] LABS: Basophils # (auto) 0.1 10 ^3/uL (0-0.2); Mean Corpuscular Hemoglobin 23.7 pg (28.0-32.0); Mean Corpuscular Hgb Conc. 30.7 g/dL (32.0-36.0)
[2021-07-15 04:24] LABS: Basophils % (auto) 1.1 % (0.0-2.0); Eosinophils # (auto) 0.2 10 ^3/uL (0-0.8); Eosinophils % (auto) 2.5 % (0.0-7.0); Hematocrit 30.3 % (36.0-46.0); Hemoglobin 9.3 g/dL (12.2-16.2); Lymphocytes # (auto) 1.7 10 ^3/uL (0.4-5.4); Lymphocytes % (auto) 18.6 % (10.0-50.0); Mean Corpuscular Volume 77.3 fL (80.0-100.0); Monocytes # (auto) 1.2 10 ^3/uL (0-1.3); Monocytes % (auto) 13.5 % (0.0-12.0); Neutrophils # (auto) 5.9 10 ^3/uL (1.6-8.6); Neutrophils % (auto) 64.3 % (37.0-80.0); Red Blood Cells 3.92 10^6/uL (4.0-5.20); White Blood Cell 9.2 10^3/uL (4.4-10.8)
[2021-07-15 04:53] LABS: Potassium 3.5 mmol/L (3.5-5.1)
[2021-07-15 04:58] LABS: Albumin 2.6 g/dL (3.4-5.0); BUN/Creatinine Ratio 44.6; Calcium 9.4 mg/dL (8.5-10.1)
[2021-07-15 05:09] LABS: Bilirubin, Total 0.6 mg/dL (0.2-1.0); Total Protein 6.5 g/dL (6.4-8.2)
[2021-07-15 05:11] LABS: Red Cell Distribution Width 20.9 % (11.8-14.3)
[2021-07-15] MEDS: PIPERACILLIN-TAZOB 3.375GM 100 ML IV SCH ×3 (05:36→17:23)
[2021-07-15] MEDS: BUMETANIDE 2.5mg/10ml (0.25 mg/ml) INJ IV SCH ×2 (05:36→17:29)
[2021-07-15] MEDS: ACCU-CHEK COMFORT CURVE STRIP VI SCH ×4 (07:00→21:25)
[2021-07-15] MEDS: InsuLIN REG 1unit/0.01ml Soln (100units/ml) SC SCH ×4 (07:00→21:25)
[2021-07-15] MEDS: PANTOPRAZOLE 40 MG/10 ML VIAL INJ IV SCH (09:06)
[2021-07-15] MEDS: APIXABAN 5 MG TAB PO SCH ×2 (10:00→20:56)
[2021-07-15] MEDS: POTASSIUM EFFERVESENT TAB 25 MEQ GT SCH ×2 (10:00→20:56)
[2021-07-15] MEDS: NYSTATIN TOPICAL POWDER 15GM TOP SCH ×2 (10:31→21:24)
[2021-07-15] MEDS: NOREPINEPHRINE 8 MG/250ML KIT 250 ML IV SCH (17:30)
[2021-07-15] MEDS ORDERED: ETOMIDATE (2MG/ML) 20ML VIAL IV ONE ×2 (18:14→19:00)
[2021-07-15] MEDS ORDERED: SUCCINYLCHOLINE CHLORIDE 20 MG/ML 10ML VIAL IV ONE ×2 (18:14→19:00)
[2021-07-15] MEDS ORDERED: fentaNYL Drip 2500mCg/250mlNS 250 ML IV ONE (18:28)
[2021-07-15] MEDS: fentaNYL Drip 2500mCg/250mlNS 250 ML IV SCH (18:45)
[2021-07-15] MEDS: MIDAZOLAM DRIP 50 mg/50mL 50 ML IV SCH (20:04)
[2021-07-15] MEDS: ACETYLCYSTEINE 20%(200MG/ML) SOL 4ML NEB SCH (23:38)
[2021-07-16] VITALS (81 sets, daily range): BP systolic 88–141; BP diastolic 36–72
[2021-07-16] MEDS: PIPERACILLIN-TAZOB 3.375GM 100 ML IV SCH ×4 (01:29→17:17)
[2021-07-16] MEDS: LEVALBUTEROL HCL 1.25 MG/3 ML NEB NEB SCH ×5 (02:00→18:00)
[2021-07-16 03:58] LABS: Basophils # (auto) 0.1 10 ^3/uL (0-0.2); Basophils % (auto) 0.9 % (0.0-2.0); Eosinophils # (auto) 0.3 10 ^3/uL (0-0.8); Lymphocytes # (auto) 3.1 10 ^3/uL (0.4-5.4); Mean Corpuscular Hemoglobin 23.4 pg (28.0-32.0); Monocytes # (auto) 1.5 10 ^3/uL (0-1.3); Monocytes % (auto) 12.4 % (0.0-12.0); Neutrophils # (auto) 6.9 10 ^3/uL (1.6-8.6); White Blood Cell 11.9 10^3/uL (4.4-10.8)
[2021-07-16 03:59] LABS: Eosinophils % (auto) 2.4 % (0.0-7.0); Hematocrit 30.9 % (36.0-46.0); Hemoglobin 9.5 g/dL (12.2-16.2); Lymphocytes % (auto) 26.1 % (10.0-50.0); Mean Corpuscular Hgb Conc. 30.7 g/dL (32.0-36.0); Mean Corpuscular Volume 76.3 fL (80.0-100.0); Neutrophils % (auto) 58.2 % (37.0-80.0); Red Blood Cells 4.05 10^6/uL (4.0-5.20)
[2021-07-16 04:03] LABS: Red Cell Distribution Width 21.2 % (11.8-14.3)
[2021-07-16 04:14] LABS: Albumin 2.5 g/dL (3.4-5.0); Calcium 9.2 mg/dL (8.5-10.1)
[2021-07-16 04:16] LABS: BUN/Creatinine Ratio 36.5
[2021-07-16 04:19] LABS: Bilirubin, Total 0.7 mg/dL (0.2-1.0); Total Protein 6.5 g/dL (6.4-8.2)
[2021-07-16 04:36] LABS: Potassium 2.9 mmol/L (3.5-5.1)
[2021-07-16] MEDS: IPRATROPIUM BROM 0.5 MG/2.5ML INH SOL NEB PRN ×2 (06:04→14:04)
[2021-07-16] MEDS: ACETYLCYSTEINE 20%(200MG/ML) SOL 4ML NEB SCH ×3 (06:04→22:00)
[2021-07-16] MEDS: BUMETANIDE 2.5mg/10ml (0.25 mg/ml) INJ IV SCH ×2 (06:43→17:17)
[2021-07-16] MEDS: ACCU-CHEK COMFORT CURVE STRIP VI SCH ×4 (07:00→22:16)
[2021-07-16] MEDS: InsuLIN REG 1unit/0.01ml Soln (100units/ml) SC SCH ×4 (07:00→22:22)
[2021-07-16] MEDS: POTASSIUM CHL 20MEQ/50ML 50 ML IV SCH ×2 (08:48→09:46)
[2021-07-16] MEDS: DIGOXIN 0.125 MG TAB PO SCH (10:00)
[2021-07-16] MEDS: PANTOPRAZOLE 40 MG/10 ML VIAL INJ IV SCH (10:00)
[2021-07-16] MEDS: POTASSIUM EFFERVESENT TAB 25 MEQ GT SCH ×2 (10:00→22:05)
[2021-07-16] MEDS: NYSTATIN TOPICAL POWDER 15GM TOP SCH ×2 (10:00→22:16)
[2021-07-16 11:04] LABS: Hematocrit 28.4 % (36.0-46.0)
[2021-07-16 11:06] LABS: Hemoglobin 8.7 g/dL (12.2-16.2)
[2021-07-16 11:15] LABS: INR 1.35 (0.9-1.15); Partial Thromboplastin Time 33.4 sec (23.6-33.0)
[2021-07-16] MEDS ORDERED: SODIUM CHLORIDE 0.9% 1,000 ML IV ONE (12:45)
[2021-07-16] MEDS: fentaNYL Drip 2500mCg/250mlNS 250 ML IV SCH (17:17)
[2021-07-16] MEDS: MIDAZOLAM DRIP 50 mg/50mL 50 ML IV SCH (17:18)
[2021-07-16] MEDS: NOREPINEPHRINE 8 MG/250ML KIT 250 ML IV SCH (17:18)
[2021-07-16 18:22] LABS: Hemoglobin 8.6 g/dL (12.2-16.2)
[2021-07-16 18:24] LABS: Hematocrit 27.8 % (36.0-46.0)
[2021-07-16 22:21] LABS: Hematocrit 29.3 % (36.0-46.0); Hemoglobin 9.2 g/dL (12.2-16.2)
[2021-07-17] VITALS (100 sets, daily range): BP systolic 87–169; BP diastolic 30–82
[2021-07-17] MEDS: PIPERACILLIN-TAZOB 3.375GM 100 ML IV SCH ×4 (00:25→18:01)
[2021-07-17] MEDS: MIDAZOLAM DRIP 50 mg/50mL 50 ML IV SCH ×2 (00:53→12:54)
[2021-07-17] MEDS: LEVALBUTEROL HCL 1.25 MG/3 ML NEB NEB SCH ×2 (02:00→06:58)
[2021-07-17 03:52] LABS: Basophils # (auto) 0.1 10 ^3/uL (0-0.2); Eosinophils # (auto) 0.5 10 ^3/uL (0-0.8); Monocytes # (auto) 1.4 10 ^3/uL (0-1.3)
[2021-07-17 03:56] LABS: Basophils % (auto) 0.9 % (0.0-2.0); Eosinophils % (auto) 4.5 % (0.0-7.0); Hematocrit 30.8 % (36.0-46.0); Hemoglobin 9.5 g/dL (12.2-16.2); Lymphocytes # (auto) 2.6 10 ^3/uL (0.4-5.4); Lymphocytes % (auto) 24.7 % (10.0-50.0); Mean Corpuscular Hemoglobin 23.6 pg (28.0-32.0); Mean Corpuscular Hgb Conc. 30.7 g/dL (32.0-36.0); Mean Corpuscular Volume 76.7 fL (80.0-100.0); Monocytes % (auto) 13.4 % (0.0-12.0); Neutrophils % (auto) 56.5 % (37.0-80.0); Red Blood Cells 4.02 10^6/uL (4.0-5.20); White Blood Cell 10.7 10^3/uL (4.4-10.8)
[2021-07-17 03:59] LABS: Red Cell Distribution Width 21.6 % (11.8-14.3)
[2021-07-17 04:11] LABS: BUN/Creatinine Ratio 33.7; Calcium 8.6 mg/dL (8.5-10.1)
[2021-07-17] MEDS: BUMETANIDE 2.5mg/10ml (0.25 mg/ml) INJ IV SCH (05:39)
[2021-07-17] MEDS: ACETYLCYSTEINE 20%(200MG/ML) SOL 4ML NEB SCH ×3 (06:58→22:12)
[2021-07-17] MEDS: ACCU-CHEK COMFORT CURVE STRIP VI SCH ×3 (07:21→17:00)
[2021-07-17] MEDS: InsuLIN REG 1unit/0.01ml Soln (100units/ml) SC SCH ×3 (07:21→17:00)
[2021-07-17] MEDS: POTASSIUM CHL 20MEQ/50ML 50 ML IV SCH (08:39)
[2021-07-17] MEDS ORDERED: TPN PER PHARMACY 0 ML IV SCH (09:45)
[2021-07-17] MEDS: POTASSIUM EFFERVESENT TAB 25 MEQ GT SCH (10:09)
[2021-07-17] MEDS: PANTOPRAZOLE 40 MG/10 ML VIAL INJ IV SCH (10:09)
[2021-07-17] MEDS: NYSTATIN TOPICAL POWDER 15GM TOP SCH ×2 (10:09→22:00)
[2021-07-17 11:00] LABS: Albumin 2.7 g/dL (3.4-5.0); Bilirubin, Direct 0.3 mg/dL (0-0.2); Bilirubin, Total 0.7 mg/dL (0.2-1.0); Magnesium 1.9 mg/dL (1.6-2.6); Phosphorus 4.1 mg/dL (2.5-4.90); Pre Albumin 12.7 mg/dL (20.0-40.0); Total Protein 6.7 g/dL (6.4-8.2)
[2021-07-17 13:57] LABS: Hematocrit 25.9 % (36.0-46.0)
[2021-07-17] MEDS: SODIUM CHLORIDE 0.9% 1,000 ML IV SCH ×2 (13:57→23:30)
[2021-07-17] MEDS: IPRATROPIUM BROM 0.5 MG/2.5ML INH SOL NEB PRN ×2 (14:24→22:12)
[2021-07-17] MEDS: LEVALBUTEROL HCL 1.25 MG/3 ML NEB NEB PRN ×2 (14:24→22:12)
[2021-07-17] MEDS: fentaNYL Drip 2500mCg/250mlNS 250 ML IV SCH (17:47)
[2021-07-17] MEDS: NOREPINEPHRINE 8 MG/250ML KIT 250 ML IV SCH (19:45)
[2021-07-17] MEDS ORDERED: TPN PER PHARMACY IV NR ×7 (20:00)
[2021-07-17 21:49] LABS: Hematocrit 25.6 % (36.0-46.0); Hemoglobin 8.5 g/dL (12.2-16.2)
[2021-07-18] VITALS (102 sets, daily range): BP systolic 97–143; BP diastolic 33–65
[2021-07-18] MEDS ORDERED: DEXTROSE (50%) 50ML SYRG IV SCH
[2021-07-18] MEDS: InsuLIN REG 1unit/0.01ml Soln (100units/ml) SC SCH ×4 (00:15→17:44)
[2021-07-18] MEDS: ACCU-CHEK COMFORT CURVE STRIP VI SCH ×4 (00:15→17:45)
[2021-07-18] MEDS: PIPERACILLIN-TAZOB 3.375GM 100 ML IV SCH ×5 (00:18→20:12)
[2021-07-18] MEDS: MIDAZOLAM DRIP 50 mg/50mL 50 ML IV SCH ×2 (01:00→13:43)
[2021-07-18 04:57] LABS: Albumin 2.3 g/dL (3.4-5.0); Calcium 8.2 mg/dL (8.5-10.1); Magnesium 3.2 mg/dL (1.6-2.6); Potassium 3.6 mmol/L (3.5-5.1)
[2021-07-18 05:01] LABS: BUN/Creatinine Ratio 32.7; Bilirubin, Total 0.6 mg/dL (0.2-1.0); Phosphorus 3.2 mg/dL (2.5-4.90)
[2021-07-18] MEDS: NOREPINEPHRINE 8 MG/250ML KIT 250 ML IV SCH (06:11)
[2021-07-18] MEDS: fentaNYL Drip 2500mCg/250mlNS 250 ML IV SCH ×2 (06:12→18:33)
[2021-07-18] MEDS ORDERED: VANCOMYCIN 500 MG in D5W 5% 100 ML IV ONE (09:15)
[2021-07-18] MEDS: SODIUM CHLORIDE 0.9% 1,000 ML IV SCH (09:30)
[2021-07-18] MEDS: DIGOXIN 0.125 MG TAB PO SCH (10:00)
[2021-07-18] MEDS ORDERED: VANCOMYCIN 500 MG in SODIUM CHL 0.9% 100 ML IV ONE (10:00)
[2021-07-18] MEDS: PANTOPRAZOLE 40 MG/10 ML VIAL INJ IV SCH (10:04)
[2021-07-18] MEDS: NYSTATIN TOPICAL POWDER 15GM TOP SCH ×2 (10:07→21:16)
[2021-07-18] MEDS ORDERED: Jevity 1.2 Cal/Fiber 1 Liter GT SCH (14:45)
[2021-07-18] MEDS: IPRATROPIUM BROM 0.5 MG/2.5ML INH SOL NEB PRN (19:17)
[2021-07-18] MEDS: LEVALBUTEROL HCL 1.25 MG/3 ML NEB NEB PRN (19:17)
[2021-07-18] MEDS ORDERED: TPN PER PHARMACY IV NR ×9 (20:00)
[2021-07-18] MEDS ORDERED: SODIUM CHLORIDE 0.9% 1,000 ML IV SCH (20:00)
[2021-07-19] VITALS (83 sets, daily range): BP systolic 91–138; BP diastolic 31–76
[2021-07-19] MEDS: InsuLIN REG 1unit/0.01ml Soln (100units/ml) SC SCH ×4 (00:02→18:14)
[2021-07-19] MEDS: ACCU-CHEK COMFORT CURVE STRIP VI SCH ×4 (00:17→18:14)
[2021-07-19 04:35] LABS: Basophils # (auto) 0.1 10 ^3/uL (0-0.2); Basophils % (auto) 0.8 % (0.0-2.0); Lymphocytes # (auto) 2.3 10 ^3/uL (0.4-5.4); Lymphocytes % (auto) 23.9 % (10.0-50.0); Neutrophils # (auto) 5.6 10 ^3/uL (1.6-8.6)
[2021-07-19 04:39] LABS: Eosinophils # (auto) 0.6 10 ^3/uL (0-0.8); Hematocrit 25.6 % (36.0-46.0); Hemoglobin 8.1 g/dL (12.2-16.2); Mean Corpuscular Hemoglobin 24.5 pg (28.0-32.0); Mean Corpuscular Hgb Conc. 31.9 g/dL (32.0-36.0); Mean Corpuscular Volume 76.8 fL (80.0-100.0); Monocytes % (auto) 10.6 % (0.0-12.0); Neutrophils % (auto) 58.7 % (37.0-80.0); Red Blood Cells 3.33 10^6/uL (4.0-5.20); White Blood Cell 9.5 10^3/uL (4.4-10.8)
[2021-07-19 04:40] LABS: Red Cell Distribution Width 20.9 % (11.8-14.3)
[2021-07-19 04:46] LABS: Albumin 2.1 g/dL (3.4-5.0); Calcium 8.4 mg/dL (8.5-10.1); Magnesium 2.2 mg/dL (1.6-2.6); Potassium 3.1 mmol/L (3.5-5.1)
[2021-07-19 04:48] LABS: BUN/Creatinine Ratio 28.5
[2021-07-19 04:51] LABS: Bilirubin, Total 0.6 mg/dL (0.2-1.0); Phosphorus 2.4 mg/dL (2.5-4.90); Total Protein 5.9 g/dL (6.4-8.2)
[2021-07-19] MEDS: PIPERACILLIN-TAZOB 3.375GM 100 ML IV SCH ×3 (05:15→20:08)
[2021-07-19] MEDS: IPRATROPIUM BROM 0.5 MG/2.5ML INH SOL NEB PRN (06:20)
[2021-07-19] MEDS: LEVALBUTEROL HCL 1.25 MG/3 ML NEB NEB PRN (06:20)
[2021-07-19] MEDS ORDERED: POTASSIUM CHL 20MEQ/50ML 50 ML IV ONE (09:15)
[2021-07-19] MEDS: NYSTATIN TOPICAL POWDER 15GM TOP SCH ×2 (10:03→22:00)
[2021-07-19] MEDS: PANTOPRAZOLE 40 MG/10 ML VIAL INJ IV SCH (10:03)
[2021-07-19] MEDS ORDERED: POTASSIUM PHOSPHATE 11 MEQ in SODIUM CHL 0.9% 100 ML IV ONE (12:00)
[2021-07-19] MEDS ORDERED: Jevity 1.2 Cal/Fiber 1 Liter GT SCH (12:30)
[2021-07-19] MEDS: SODIUM CHLORIDE 0.9% 1,000 ML IV SCH (12:40)
[2021-07-19] MEDS ORDERED: phytonadione 5 MG in SODIUM CHL 0.9% 50 ML IV ONE (14:00)
[2021-07-19 15:49] LABS: INR 1.27 (0.9-1.15); Partial Thromboplastin Time 30.1 sec (23.6-33.0)
[2021-07-19] MEDS: MIDAZOLAM DRIP 50 mg/50mL 50 ML IV SCH (19:00)
[2021-07-19] MEDS: fentaNYL Drip 2500mCg/250mlNS 250 ML IV SCH (19:00)
[2021-07-19] MEDS ORDERED: TPN PER PHARMACY IV NR ×7 (20:00)
[2021-07-19] MEDS: NOREPINEPHRINE 8 MG/250ML KIT 250 ML IV SCH (23:11)
[2021-07-20] VITALS (101 sets, daily range): BP systolic 91–167; BP diastolic 34–76
[2021-07-20] MEDS: ACCU-CHEK COMFORT CURVE STRIP VI SCH ×4 (00:03→18:00)
[2021-07-20] MEDS: InsuLIN REG 1unit/0.01ml Soln (100units/ml) SC SCH ×4 (00:10→18:00)
[2021-07-20] MEDS: PIPERACILLIN-TAZOB 3.375GM 100 ML IV SCH ×2 (01:01→07:00)
[2021-07-20] MEDS: MIDAZOLAM DRIP 50 mg/50mL 50 ML IV SCH ×2 (03:32→23:00)
[2021-07-20] MEDS: fentaNYL Drip 2500mCg/250mlNS 250 ML IV SCH ×2 (03:33→19:22)
[2021-07-20 04:44] LABS: Basophils # (auto) 0.1 10 ^3/uL (0-0.2); Eosinophils # (auto) 0.5 10 ^3/uL (0-0.8); Lymphocytes # (auto) 1.5 10 ^3/uL (0.4-5.4); Monocytes # (auto) 0.8 10 ^3/uL (0-1.3); Red Blood Cells 3.18 10^6/uL (4.0-5.20); White Blood Cell 7.9 10^3/uL (4.4-10.8)
[2021-07-20 04:47] LABS: Basophils % (auto) 0.9 % (0.0-2.0); Eosinophils % (auto) 5.7 % (0.0-7.0); Hematocrit 24.3 % (36.0-46.0); Hemoglobin 7.7 g/dL (12.2-16.2); Lymphocytes % (auto) 19.2 % (10.0-50.0); Mean Corpuscular Hemoglobin 24.3 pg (28.0-32.0); Mean Corpuscular Hgb Conc. 31.8 g/dL (32.0-36.0); Mean Corpuscular Volume 76.5 fL (80.0-100.0); Monocytes % (auto) 10.3 % (0.0-12.0); Neutrophils # (auto) 5.1 10 ^3/uL (1.6-8.6); Neutrophils % (auto) 63.9 % (37.0-80.0)
[2021-07-20 04:59] LABS: INR 1.12 (0.9-1.15); Partial Thromboplastin Time 29.6 sec (23.6-33.0)
[2021-07-20 05:05] LABS: Calcium 8.3 mg/dL (8.5-10.1)
[2021-07-20 05:11] LABS: BUN/Creatinine Ratio 31.3; Bilirubin, Total 0.4 mg/dL (0.2-1.0); Magnesium 1.9 mg/dL (1.6-2.6); Phosphorus 2.7 mg/dL (2.5-4.90); Red Cell Distribution Width 20.7 % (11.8-14.3); Total Protein 5.5 g/dL (6.4-8.2)
[2021-07-20] MEDS ORDERED: POTASSIUM CHL 20MEQ/50ML 50 ML IV ONE ×3 (07:00→08:30)
[2021-07-20] MEDS: SODIUM CHLORIDE 0.9% 1,000 ML IV SCH ×3 (08:29→23:00)
[2021-07-20] MEDS ORDERED: LIDOCAINE W/ EPINEPHRINE 1% 20ML VIAL ONE (09:55)
[2021-07-20] MEDS: PANTOPRAZOLE 40 MG/10 ML VIAL INJ IV SCH (10:00)
[2021-07-20] MEDS: NYSTATIN TOPICAL POWDER 15GM TOP SCH ×2 (10:00→22:10)
[2021-07-20] MEDS ORDERED: HYDROmorphone HCL 2 MG/ML VL ONE ×2 (10:42→10:43)
[2021-07-20] MEDS ORDERED: MIDAZOLAM HCL 2MG/2ML 2ml VIAL (1mg/ml) ONE (10:43)
[2021-07-20] MEDS ORDERED: fentaNYL CITRATE 100 MCG/2 ML VL ONE (10:43)
[2021-07-20] MEDS ORDERED: ROCURONIUM 10MG/ML 10ML VIAL IV ONE (11:22)
[2021-07-20] MEDS: DOXYCYCLINE 100MG/250ML 250 ML IV SCH (13:15)
[2021-07-20] MEDS: NOREPINEPHRINE 8 MG/250ML KIT 250 ML IV SCH (19:45)
[2021-07-20] MEDS ORDERED: TPN PER PHARMACY IV NR ×17 (20:00)
[2021-07-21] VITALS (99 sets, daily range): BP systolic 87–157; BP diastolic 43–75
[2021-07-21] MEDS: InsuLIN REG 1unit/0.01ml Soln (100units/ml) SC SCH ×4 (00:01→17:36)
[2021-07-21] MEDS: DOXYCYCLINE 100MG/250ML 250 ML IV SCH ×2 (01:30→13:37)
[2021-07-21] MEDS: ACCU-CHEK COMFORT CURVE STRIP VI SCH ×4 (06:08→17:35)
[2021-07-21] MEDS: NYSTATIN TOPICAL POWDER 15GM TOP SCH ×2 (10:00→22:12)
[2021-07-21] MEDS: PANTOPRAZOLE 40 MG/10 ML VIAL INJ IV SCH (10:00)
[2021-07-21 13:14] LABS: Basophils # (auto) 0.1 10 ^3/uL (0-0.2); Eosinophils # (auto) 0.4 10 ^3/uL (0-0.8); Hematocrit 26.6 % (36.0-46.0); Lymphocytes # (auto) 1.5 10 ^3/uL (0.4-5.4); Mean Corpuscular Hgb Conc. 32.2 g/dL (32.0-36.0); Nucleated Red Blood Cells % 0.1 %; White Blood Cell 8.2 10^3/uL (4.4-10.8)
[2021-07-21 13:16] LABS: Eosinophils % (auto) 5.5 % (0.0-7.0); Hemoglobin 8.6 g/dL (12.2-16.2); Lymphocytes % (auto) 18.1 % (10.0-50.0); Mean Corpuscular Hemoglobin 24.7 pg (28.0-32.0); Mean Corpuscular Volume 76.6 fL (80.0-100.0); Monocytes # (auto) 0.9 10 ^3/uL (0-1.3); Monocytes % (auto) 10.9 % (0.0-12.0); Neutrophils # (auto) 5.3 10 ^3/uL (1.6-8.6); Neutrophils % (auto) 64.5 % (37.0-80.0); Red Blood Cells 3.47 10^6/uL (4.0-5.20)
[2021-07-21 13:23] LABS: Potassium 3.6 mmol/L (3.5-5.1)
[2021-07-21] MEDS: SODIUM CHLORIDE 0.9% 1,000 ML IV SCH (13:38)
[2021-07-21 14:20] LABS: Albumin 1.8 g/dL (3.4-5.0); BUN/Creatinine Ratio 37.9; Bilirubin, Total 0.4 mg/dL (0.2-1.0); Calcium 7.8 mg/dL (8.5-10.1); Total Protein 5.5 g/dL (6.4-8.2)
[2021-07-21 14:21] LABS: Magnesium 1.7 mg/dL (1.6-2.6)
[2021-07-21] MEDS: NOREPINEPHRINE 8 MG/250ML KIT 250 ML IV SCH (19:45)
[2021-07-21] MEDS ORDERED: TPN PER PHARMACY IV NR ×12 (20:00)
[2021-07-21] MEDS ORDERED: ceFAZolin 1GM/50ML 50 ML IV ONE (21:45)
[2021-07-22] VITALS (94 sets, daily range): BP systolic 102–158; BP diastolic 46–81
[2021-07-22] MEDS: ACCU-CHEK COMFORT CURVE STRIP VI SCH ×4 (00:29→16:58)
[2021-07-22] MEDS: InsuLIN REG 1unit/0.01ml Soln (100units/ml) SC SCH ×4 (00:34→17:45)
[2021-07-22] MEDS: DOXYCYCLINE 100MG/250ML 250 ML IV SCH ×2 (01:21→12:13)
[2021-07-22 04:33] LABS: Basophils # (auto) 0 10 ^3/uL (0-0.2); Eosinophils # (auto) 0.3 10 ^3/uL (0-0.8); Hemoglobin 8.9 g/dL (12.2-16.2); Lymphocytes # (auto) 1.5 10 ^3/uL (0.4-5.4); Monocytes # (auto) 0.7 10 ^3/uL (0-1.3)
[2021-07-22 04:35] LABS: Basophils % (auto) 0.6 % (0.0-2.0); Eosinophils % (auto) 4.5 % (0.0-7.0); Hematocrit 28.3 % (36.0-46.0); Lymphocytes % (auto) 20.2 % (10.0-50.0); Mean Corpuscular Hemoglobin 24.4 pg (28.0-32.0); Mean Corpuscular Hgb Conc. 31.6 g/dL (32.0-36.0); Mean Corpuscular Volume 77.2 fL (80.0-100.0); Monocytes % (auto) 9.8 % (0.0-12.0); Neutrophils # (auto) 4.7 10 ^3/uL (1.6-8.6); Neutrophils % (auto) 64.9 % (37.0-80.0); Red Blood Cells 3.66 10^6/uL (4.0-5.20); White Blood Cell 7.2 10^3/uL (4.4-10.8)
[2021-07-22 04:47] LABS: INR 1.05 (0.9-1.15); Partial Thromboplastin Time 31.7 sec (23.6-33.0)
[2021-07-22 04:59] LABS: Albumin 1.8 g/dL (3.4-5.0); Calcium 8.3 mg/dL (8.5-10.1); Magnesium 1.7 mg/dL (1.6-2.6); Potassium 4.3 mmol/L (3.5-5.1); Red Cell Distribution Width 20.3 % (11.8-14.3)
[2021-07-22 05:02] LABS: BUN/Creatinine Ratio 38.8
[2021-07-22 05:05] LABS: Bilirubin, Total 0.3 mg/dL (0.2-1.0); Phosphorus 3.3 mg/dL (2.5-4.90); Total Protein 5.5 g/dL (6.4-8.2)
[2021-07-22] MEDS: SODIUM CHLORIDE 0.9% 1,000 ML IV SCH ×2 (06:26→16:08)
[2021-07-22] MEDS ORDERED: fentaNYL CITRATE 100 MCG/2 ML VL ONE (08:27)
[2021-07-22] MEDS ORDERED: MIDAZOLAM HCL 5 MG/ML-1ML VIAL ONE (08:27)
[2021-07-22] MEDS: NYSTATIN TOPICAL POWDER 15GM TOP SCH ×2 (09:29→22:30)
[2021-07-22] MEDS: PANTOPRAZOLE 40 MG/10 ML VIAL INJ IV SCH (09:30)
[2021-07-22] MEDS: ceFAZolin 1GM/50ML 50 ML IV SCH (15:51)
[2021-07-22] MEDS: MIDAZOLAM DRIP 50 mg/50mL 50 ML IV SCH (16:07)
[2021-07-22] MEDS: fentaNYL Drip 2500mCg/250mlNS 250 ML IV SCH (16:07)
[2021-07-22] MEDS: NOREPINEPHRINE 8 MG/250ML KIT 250 ML IV SCH (17:45)
[2021-07-22] MEDS: TPN PER PHARMACY IV NR ×9 (20:10)
[2021-07-22] MEDS ORDERED: ceFAZolin 1GM/50ML 50 ML IV SCH (22:00)
[2021-07-23] VITALS (83 sets, daily range): BP systolic 104–174; BP diastolic 35–75
[2021-07-23] MEDS: InsuLIN REG 1unit/0.01ml Soln (100units/ml) SC SCH ×4 (00:25→18:04)
[2021-07-23] MEDS: ceFAZolin 1GM/50ML 50 ML IV SCH ×2 (00:30→08:37)
[2021-07-23] MEDS: ACCU-CHEK COMFORT CURVE STRIP VI SCH ×4 (00:30→17:16)
[2021-07-23] MEDS: DOXYCYCLINE 100MG/250ML 250 ML IV SCH ×2 (01:28→15:06)
[2021-07-23 04:23] LABS: Basophils # (auto) 0.1 10 ^3/uL (0-0.2); Eosinophils # (auto) 0.2 10 ^3/uL (0-0.8); Lymphocytes # (auto) 1.4 10 ^3/uL (0.4-5.4)
[2021-07-23 04:27] LABS: Eosinophils % (auto) 2.5 % (0.0-7.0); Hematocrit 23.6 % (36.0-46.0); Hemoglobin 7.7 g/dL (12.2-16.2); Lymphocytes % (auto) 15.3 % (10.0-50.0); Mean Corpuscular Hemoglobin 25.1 pg (28.0-32.0); Mean Corpuscular Hgb Conc. 32.6 g/dL (32.0-36.0); Mean Corpuscular Volume 77.1 fL (80.0-100.0); Monocytes # (auto) 0.8 10 ^3/uL (0-1.3); Monocytes % (auto) 8.4 % (0.0-12.0); Neutrophils # (auto) 6.6 10 ^3/uL (1.6-8.6); Neutrophils % (auto) 72.8 % (37.0-80.0); Nucleated Red Blood Cells % 0.2 %; Red Blood Cells 3.06 10^6/uL (4.0-5.20)
[2021-07-23 04:34] LABS: Albumin 1.7 g/dL (3.4-5.0); Calcium 7.9 mg/dL (8.5-10.1); Magnesium 2.4 mg/dL (1.6-2.6); Potassium 3.9 mmol/L (3.5-5.1)
[2021-07-23 04:39] LABS: BUN/Creatinine Ratio 45.8; Bilirubin, Total 0.3 mg/dL (0.2-1.0); Phosphorus 3.5 mg/dL (2.5-4.90); Total Protein 5.2 g/dL (6.4-8.2)
[2021-07-23 05:23] LABS: Red Cell Distribution Width 20.3 % (11.8-14.3)
[2021-07-23] MEDS: PANTOPRAZOLE 40 MG/10 ML VIAL INJ IV SCH (08:37)
[2021-07-23] MEDS: SODIUM CHLORIDE 0.9% 1,000 ML IV SCH (08:37)
[2021-07-23] MEDS: NYSTATIN TOPICAL POWDER 15GM TOP SCH ×2 (08:38→21:49)
[2021-07-23] MEDS ORDERED: Jevity 1.2 Cal/Fiber 1 Liter GT SCH (14:30)
[2021-07-23] MEDS: fentaNYL Drip 2500mCg/250mlNS 250 ML IV SCH (17:16)
[2021-07-23] MEDS: MIDAZOLAM DRIP 50 mg/50mL 50 ML IV SCH (18:45)
[2021-07-23] MEDS: NOREPINEPHRINE 8 MG/250ML KIT 250 ML IV SCH (19:45)
[2021-07-23] MEDS: TPN PER PHARMACY IV NR ×9 (19:54)
[2021-07-23] MEDS ORDERED: TPN PER PHARMACY IV NR ×8 (20:00)
[2021-07-24] VITALS (70 sets, daily range): BP systolic 105–172; BP diastolic 39–79
[2021-07-24] MEDS: ACCU-CHEK COMFORT CURVE STRIP VI SCH ×4 (01:54→17:43)
[2021-07-24] MEDS: DOXYCYCLINE 100MG/250ML 250 ML IV SCH ×2 (01:54→12:42)
[2021-07-24] MEDS: InsuLIN REG 1unit/0.01ml Soln (100units/ml) SC SCH ×4 (01:55→17:41)
[2021-07-24 04:37] LABS: Basophils # (auto) 0.1 10 ^3/uL (0-0.2); Hemoglobin 7.2 g/dL (12.2-16.2); Mean Corpuscular Volume 77.4 fL (80.0-100.0); Neutrophils # (auto) 6.3 10 ^3/uL (1.6-8.6)
[2021-07-24 04:39] LABS: Basophils % (auto) 0.9 % (0.0-2.0); Eosinophils # (auto) 0.3 10 ^3/uL (0-0.8); Eosinophils % (auto) 3.5 % (0.0-7.0); Lymphocytes # (auto) 1.6 10 ^3/uL (0.4-5.4); Lymphocytes % (auto) 17.6 % (10.0-50.0); Mean Corpuscular Hemoglobin 25.1 pg (28.0-32.0); Mean Corpuscular Hgb Conc. 32.5 g/dL (32.0-36.0); Monocytes % (auto) 10.5 % (0.0-12.0); Neutrophils % (auto) 67.5 % (37.0-80.0); Red Blood Cells 2.85 10^6/uL (4.0-5.20); White Blood Cell 9.3 10^3/uL (4.4-10.8)
[2021-07-24 04:55] LABS: Albumin 1.7 g/dL (3.4-5.0); BUN/Creatinine Ratio 53.3; Calcium 8.4 mg/dL (8.5-10.1); Magnesium 1.8 mg/dL (1.6-2.6); Potassium 3.8 mmol/L (3.5-5.1)
[2021-07-24 04:58] LABS: Bilirubin, Total 0.2 mg/dL (0.2-1.0); Phosphorus 3.3 mg/dL (2.5-4.90); Total Protein 5.3 g/dL (6.4-8.2)
[2021-07-24 05:07] LABS: Red Cell Distribution Width 20.9 % (11.8-14.3)
[2021-07-24] MEDS: PANTOPRAZOLE 40 MG/10 ML VIAL INJ IV SCH (09:34)
[2021-07-24] MEDS: NYSTATIN TOPICAL POWDER 15GM TOP SCH ×2 (10:00→22:00)
[2021-07-24 12:24] LABS: Hematocrit 23.5 % (36.0-46.0); Hemoglobin 7.4 g/dL (12.2-16.2)
[2021-07-24] MEDS ORDERED: Glucerna 1.2 Cal 1Liter BOTTLE GT SCH (15:30)
[2021-07-24 18:10] LABS: Hematocrit 23.7 % (36.0-46.0)
[2021-07-24] MEDS: MIDAZOLAM DRIP 50 mg/50mL 50 ML IV SCH (18:14)
[2021-07-24] MEDS: fentaNYL Drip 2500mCg/250mlNS 250 ML IV SCH (18:14)
[2021-07-24 18:32] LABS: Hemoglobin 6.7 g/dL (12.2-16.2)
[2021-07-24] MEDS: NOREPINEPHRINE 8 MG/250ML KIT 250 ML IV SCH (19:45)
[2021-07-24] MEDS ORDERED: TPN PER PHARMACY IV NR ×8 (20:00)
[2021-07-24 22:52] LABS: Hematocrit 21.3 % (36.0-46.0)
[2021-07-24 23:01] LABS: Hemoglobin 6.9 g/dL (12.2-16.2)
[2021-07-25] VITALS (28 sets, daily range): BP systolic 91–165; BP diastolic 30–76
[2021-07-25] MEDS: DOXYCYCLINE 100MG/250ML 250 ML IV SCH ×2 (01:15→13:15)
[2021-07-25] MEDS: ACCU-CHEK COMFORT CURVE STRIP VI SCH ×5 (05:51→21:15)
[2021-07-25] MEDS: InsuLIN REG 1unit/0.01ml Soln (100units/ml) SC SCH ×5 (05:59→22:00)
[2021-07-25 06:54] LABS: Basophils # (auto) 0.1 10 ^3/uL (0-0.2); Basophils % (auto) 1.3 % (0.0-2.0); Eosinophils # (auto) 0.3 10 ^3/uL (0-0.8); Eosinophils % (auto) 3.2 % (0.0-7.0); Neutrophils # (auto) 6.6 10 ^3/uL (1.6-8.6)
[2021-07-25 06:55] LABS: Hematocrit 26.4 % (36.0-46.0); Hemoglobin 8.4 g/dL (12.2-16.2); Lymphocytes # (auto) 2.4 10 ^3/uL (0.4-5.4); Lymphocytes % (auto) 22.6 % (10.0-50.0); Mean Corpuscular Hgb Conc. 31.7 g/dL (32.0-36.0); Monocytes # (auto) 1.1 10 ^3/uL (0-1.3); Monocytes % (auto) 10.5 % (0.0-12.0); Neutrophils % (auto) 62.4 % (37.0-80.0); Red Blood Cells 3.34 10^6/uL (4.0-5.20); White Blood Cell 10.5 10^3/uL (4.4-10.8)
[2021-07-25 06:58] LABS: Mean Corpuscular Volume 78.9 fL (80.0-100.0); Red Cell Distribution Width 20.8 % (11.8-14.3)
[2021-07-25 07:00] LABS: INR 1.09 (0.9-1.15)
[2021-07-25 07:06] LABS: Albumin 1.9 g/dL (3.4-5.0); Calcium 8.6 mg/dL (8.5-10.1); Magnesium 1.8 mg/dL (1.6-2.6); Potassium 3.8 mmol/L (3.5-5.1)
[2021-07-25 07:16] LABS: BUN/Creatinine Ratio 65.6; Bilirubin, Total 0.4 mg/dL (0.2-1.0); Phosphorus 2.8 mg/dL (2.5-4.90); Pre Albumin 11.2 mg/dL (20.0-40.0); Total Protein 5.7 g/dL (6.4-8.2)
[2021-07-25] MEDS: PANTOPRAZOLE 40 MG/10 ML VIAL INJ IV SCH (13:16)
[2021-07-25] MEDS: NYSTATIN TOPICAL POWDER 15GM TOP SCH ×2 (13:16→21:15)
[2021-07-25] MEDS ORDERED: DEXTROSE (50%) 50ML SYRG IV PRN (14:30)
[2021-07-25] MEDS: MIDAZOLAM DRIP 50 mg/50mL 50 ML IV SCH (18:45)
[2021-07-25] MEDS: fentaNYL Drip 2500mCg/250mlNS 250 ML IV SCH (18:45)
[2021-07-25] MEDS: NOREPINEPHRINE 8 MG/250ML KIT 250 ML IV SCH (19:45)
[2021-07-25] MEDS ORDERED: TPN PER PHARMACY IV NR ×9 (20:00)
[2021-07-26] VITALS (17 sets, daily range): BP systolic 97–171; BP diastolic 47–74
[2021-07-26] MEDS: DOXYCYCLINE 100MG/250ML 250 ML IV SCH ×2 (01:09→18:08)
[2021-07-26 04:20] LABS: Basophils # (auto) 0.1 10 ^3/uL (0-0.2); Eosinophils # (auto) 0.3 10 ^3/uL (0-0.8); White Blood Cell 9.4 10^3/uL (4.4-10.8)
[2021-07-26 04:22] LABS: Eosinophils % (auto) 3.2 % (0.0-7.0); Hematocrit 24.9 % (36.0-46.0); Hemoglobin 8.4 g/dL (12.2-16.2); Lymphocytes # (auto) 1.7 10 ^3/uL (0.4-5.4); Lymphocytes % (auto) 18.1 % (10.0-50.0); Mean Corpuscular Hemoglobin 26.3 pg (28.0-32.0); Mean Corpuscular Hgb Conc. 33.6 g/dL (32.0-36.0); Mean Corpuscular Volume 78.4 fL (80.0-100.0); Monocytes # (auto) 0.9 10 ^3/uL (0-1.3); Monocytes % (auto) 9.4 % (0.0-12.0); Neutrophils # (auto) 6.4 10 ^3/uL (1.6-8.6); Neutrophils % (auto) 68.3 % (37.0-80.0); Nucleated Red Blood Cells % 0.1 %; Red Blood Cells 3.18 10^6/uL (4.0-5.20)
[2021-07-26 04:31] LABS: Red Cell Distribution Width 20.7 % (11.8-14.3)
[2021-07-26 04:35] LABS: Potassium 3.8 mmol/L (3.5-5.1)
[2021-07-26 04:43] LABS: Albumin 1.9 g/dL (3.4-5.0); BUN/Creatinine Ratio 73.7; Bilirubin, Total 0.5 mg/dL (0.2-1.0); Calcium 8.6 mg/dL (8.5-10.1); Magnesium 2.7 mg/dL (1.6-2.6); Phosphorus 2.8 mg/dL (2.5-4.90); Total Protein 5.5 g/dL (6.4-8.2)
[2021-07-26] MEDS: ACCU-CHEK COMFORT CURVE STRIP VI SCH ×4 (06:02→22:00)
[2021-07-26] MEDS: InsuLIN REG 1unit/0.01ml Soln (100units/ml) SC SCH ×4 (06:03→22:00)
[2021-07-26] MEDS: NYSTATIN TOPICAL POWDER 15GM TOP SCH ×2 (18:07→22:00)
[2021-07-26] MEDS: PANTOPRAZOLE 40 MG/10 ML VIAL INJ IV SCH (18:07)
[2021-07-26] MEDS: MIDAZOLAM DRIP 50 mg/50mL 50 ML IV SCH (18:44)
[2021-07-26] MEDS: fentaNYL Drip 2500mCg/250mlNS 250 ML IV SCH (18:44)
[2021-07-26] MEDS: NOREPINEPHRINE 8 MG/250ML KIT 250 ML IV SCH (19:45)
[2021-07-27] VITALS (15 sets, daily range): BP systolic 115–160; BP diastolic 52–77
[2021-07-27] MEDS: DOXYCYCLINE 100MG/250ML 250 ML IV SCH ×2 (01:30→13:28)
[2021-07-27] MEDS: InsuLIN REG 1unit/0.01ml Soln (100units/ml) SC SCH ×4 (07:00→22:00)
[2021-07-27] MEDS: ACCU-CHEK COMFORT CURVE STRIP VI SCH ×4 (07:00→22:00)
[2021-07-27] MEDS: PANTOPRAZOLE 40 MG/10 ML VIAL INJ IV SCH (13:27)
[2021-07-27] MEDS: NYSTATIN TOPICAL POWDER 15GM TOP SCH ×2 (13:28→21:34)
[2021-07-27] MEDS ORDERED: FUROSEMIDE 40 MG TAB PO ONE (14:30)
[2021-07-27] MEDS ORDERED: POTASSIUM EFFERVESENT TAB 25 MEQ GT ONE (14:30)
[2021-07-27] MEDS: IPRATROPIUM BROM 0.5 MG/2.5ML INH SOL NEB PRN ×2 (15:58→23:01)
[2021-07-27] MEDS: MIDAZOLAM DRIP 50 mg/50mL 50 ML IV SCH (18:45)
[2021-07-27] MEDS: fentaNYL Drip 2500mCg/250mlNS 250 ML IV SCH (18:45)
[2021-07-27] MEDS: LEVALBUTEROL HCL 1.25 MG/3 ML NEB NEB PRN (23:00)
[2021-07-28] VITALS (24 sets, daily range): BP systolic 126–159; BP diastolic 47–81
[2021-07-28] MEDS: DOXYCYCLINE 100MG/250ML 250 ML IV SCH ×2 (01:15→13:10)
[2021-07-28 04:55] LABS: BUN/Creatinine Ratio 58.5; Calcium 9.3 mg/dL (8.5-10.1)
[2021-07-28] MEDS: InsuLIN REG 1unit/0.01ml Soln (100units/ml) SC SCH ×4 (06:49→22:00)
[2021-07-28] MEDS: ACCU-CHEK COMFORT CURVE STRIP VI SCH ×4 (06:54→22:00)
[2021-07-28] MEDS: NYSTATIN TOPICAL POWDER 15GM TOP SCH ×2 (10:00→22:00)
[2021-07-28] MEDS: PANTOPRAZOLE 40 MG/10 ML VIAL INJ IV SCH (10:00)
[2021-07-28] MEDS: FUROSEMIDE 40 MG TAB PO SCH (10:00)
[2021-07-28] MEDS: POTASSIUM EFFERVESENT TAB 25 MEQ GT SCH (10:00)
[2021-07-28] MEDS: NOREPINEPHRINE 8 MG/250ML KIT 250 ML IV SCH (10:32)
[2021-07-28] MEDS: FREE WATER GT SCH (18:25)
[2021-07-28] MEDS: MIDAZOLAM DRIP 50 mg/50mL 50 ML IV SCH (18:25)
[2021-07-28] MEDS: fentaNYL Drip 2500mCg/250mlNS 250 ML IV SCH (18:25)
[2021-07-29] VITALS (23 sets, daily range): BP systolic 132–170; BP diastolic 46–92
[2021-07-29] MEDS: DOXYCYCLINE 100MG/250ML 250 ML IV SCH ×2 (01:15→12:39)
[2021-07-29 04:45] LABS: Basophils # (auto) 0.1 10 ^3/uL (0-0.2); Eosinophils # (auto) 0.2 10 ^3/uL (0-0.8); Neutrophils # (auto) 7.7 10 ^3/uL (1.6-8.6)
[2021-07-29 04:49] LABS: Basophils % (auto) 0.9 % (0.0-2.0); Eosinophils % (auto) 1.7 % (0.0-7.0); Lymphocytes # (auto) 1.6 10 ^3/uL (0.4-5.4); Lymphocytes % (auto) 15.2 % (10.0-50.0); Mean Corpuscular Hemoglobin 25.1 pg (28.0-32.0); Mean Corpuscular Hgb Conc. 32.2 g/dL (32.0-36.0); Monocytes # (auto) 0.9 10 ^3/uL (0-1.3); Neutrophils % (auto) 73.2 % (37.0-80.0); Nucleated Red Blood Cells % 0.2 %; Red Blood Cells 3.59 10^6/uL (4.0-5.20); White Blood Cell 10.5 10^3/uL (4.4-10.8)
[2021-07-29 04:57] LABS: Red Cell Distribution Width 21.5 % (11.8-14.3)
[2021-07-29 05:08] LABS: Albumin 1.9 g/dL (3.4-5.0); Calcium 9.5 mg/dL (8.5-10.1); Potassium 3.9 mmol/L (3.5-5.1)
[2021-07-29 05:13] LABS: Bilirubin, Total 0.6 mg/dL (0.2-1.0); Total Protein 6.4 g/dL (6.4-8.2)
[2021-07-29] MEDS: FREE WATER GT SCH ×4 (05:45→17:49)
[2021-07-29] MEDS: InsuLIN REG 1unit/0.01ml Soln (100units/ml) SC SCH ×4 (05:47→22:00)
[2021-07-29] MEDS: ACCU-CHEK COMFORT CURVE STRIP VI SCH ×4 (05:48→22:00)
[2021-07-29] MEDS: FUROSEMIDE 40 MG TAB PO SCH (08:58)
[2021-07-29] MEDS: PANTOPRAZOLE 40 MG/10 ML VIAL INJ IV SCH (08:58)
[2021-07-29] MEDS: NYSTATIN TOPICAL POWDER 15GM TOP SCH ×2 (08:58→22:00)
[2021-07-29] MEDS: POTASSIUM EFFERVESENT TAB 25 MEQ GT SCH (08:58)
[2021-07-29] MEDS: MIDAZOLAM DRIP 50 mg/50mL 50 ML IV SCH (17:49)
[2021-07-29] MEDS: fentaNYL Drip 2500mCg/250mlNS 250 ML IV SCH (17:49)
[2021-07-30] VITALS (24 sets, daily range): BP systolic 122–173; BP diastolic 54–86
[2021-07-30] MEDS: DOXYCYCLINE 100MG/250ML 250 ML IV SCH ×2 (01:22→13:46)
[2021-07-30] MEDS: FREE WATER GT SCH ×4 (06:00→16:42)
[2021-07-30] MEDS: InsuLIN REG 1unit/0.01ml Soln (100units/ml) SC SCH ×4 (06:39→22:00)
[2021-07-30] MEDS: ACCU-CHEK COMFORT CURVE STRIP VI SCH ×4 (06:40→22:00)
[2021-07-30] MEDS: POTASSIUM EFFERVESENT TAB 25 MEQ GT SCH (09:01)
[2021-07-30] MEDS: PANTOPRAZOLE 40 MG/10 ML VIAL INJ IV SCH (09:01)
[2021-07-30] MEDS: FUROSEMIDE 40 MG TAB PO SCH (09:02)
[2021-07-30] MEDS: NYSTATIN TOPICAL POWDER 15GM TOP SCH ×2 (11:08→22:00)
[2021-07-30] MEDS: fentaNYL Drip 2500mCg/250mlNS 250 ML IV SCH (16:25)
[2021-07-30] MEDS: MIDAZOLAM DRIP 50 mg/50mL 50 ML IV SCH (16:42)
[2021-07-30] MEDS: IPRATROPIUM BROM 0.5 MG/2.5ML INH SOL NEB PRN (22:17)
[2021-07-30] MEDS: LEVALBUTEROL HCL 1.25 MG/3 ML NEB NEB PRN (22:17)
[2021-07-31] VITALS (23 sets, daily range): BP systolic 108–152; BP diastolic 58–76
[2021-07-31] MEDS: DOXYCYCLINE 100MG/250ML 250 ML IV SCH ×2 (01:34→12:27)
[2021-07-31 04:58] LABS: Basophils # (auto) 0.1 10 ^3/uL (0-0.2); Basophils % (auto) 0.7 % (0.0-2.0); Nucleated Red Blood Cells % 0.1 %
[2021-07-31 05:00] LABS: Eosinophils # (auto) 0.2 10 ^3/uL (0-0.8); Eosinophils % (auto) 1.4 % (0.0-7.0); Hemoglobin 9.5 g/dL (12.2-16.2); Lymphocytes # (auto) 2.1 10 ^3/uL (0.4-5.4); Lymphocytes % (auto) 16.6 % (10.0-50.0); Mean Corpuscular Hemoglobin 24.8 pg (28.0-32.0); Mean Corpuscular Hgb Conc. 31.7 g/dL (32.0-36.0); Mean Corpuscular Volume 78.4 fL (80.0-100.0); Monocytes # (auto) 1.2 10 ^3/uL (0-1.3); Monocytes % (auto) 9.4 % (0.0-12.0); Neutrophils % (auto) 71.9 % (37.0-80.0); Red Blood Cells 3.83 10^6/uL (4.0-5.20); White Blood Cell 12.6 10^3/uL (4.4-10.8)
[2021-07-31 05:01] LABS: Red Cell Distribution Width 22.2 % (11.8-14.3)
[2021-07-31 05:21] LABS: Potassium 3.8 mmol/L (3.5-5.1)
[2021-07-31 05:28] LABS: BUN/Creatinine Ratio 51.2; Calcium 9.2 mg/dL (8.5-10.1)
[2021-07-31 05:40] LABS: Bilirubin, Total 0.6 mg/dL (0.2-1.0); Total Protein 5.6 g/dL (6.4-8.2)
[2021-07-31] MEDS: FREE WATER GT SCH ×4 (06:00→16:49)
[2021-07-31] MEDS: InsuLIN REG 1unit/0.01ml Soln (100units/ml) SC SCH ×4 (06:52→22:00)
[2021-07-31] MEDS: ACCU-CHEK COMFORT CURVE STRIP VI SCH ×4 (06:53→22:00)
[2021-07-31] MEDS: POTASSIUM EFFERVESENT TAB 25 MEQ GT SCH (08:23)
[2021-07-31] MEDS: NYSTATIN TOPICAL POWDER 15GM TOP SCH ×2 (08:24→22:32)
[2021-07-31] MEDS: FUROSEMIDE 40 MG TAB PO SCH (08:24)
[2021-07-31] MEDS: MIDAZOLAM DRIP 50 mg/50mL 50 ML IV SCH (10:31)
[2021-07-31] MEDS: fentaNYL Drip 2500mCg/250mlNS 250 ML IV SCH (10:31)
[2021-08-01] VITALS (11 sets, daily range): BP systolic 125–151; BP diastolic 61–70
[2021-08-01] MEDS: DOXYCYCLINE 100MG/250ML 250 ML IV SCH (01:40)
[2021-08-01] MEDS: FREE WATER GT SCH ×2 (06:00)
[2021-08-01] MEDS: ACCU-CHEK COMFORT CURVE STRIP VI SCH (06:40)
[2021-08-01] MEDS: InsuLIN REG 1unit/0.01ml Soln (100units/ml) SC SCH (06:40)
[2021-08-01] MEDS: NYSTATIN TOPICAL POWDER 15GM TOP SCH (10:49)
[2021-08-01] MEDS: POTASSIUM EFFERVESENT TAB 25 MEQ GT SCH (10:49)
[2021-08-01] MEDS: FUROSEMIDE 40 MG TAB PO SCH (10:56)
== END 2021-08-01 12:40 | DRG 4 ==
LOC: EDBD 10:10 → ER 10:10 → TELE 13:30 → ICU WEST 17:59 → CATH ICU 07-25 07:58
PROVIDERS: ADMIT Hospitalist; ATTEND Internal Medicine
PROC: 02HV33Z Insertion of Infusion Device into Superior Vena Cava, Percutaneous Approach (ICD-10-PCS; 2021-06-09)
PROC: 0BH17EZ Insertion of Endotracheal Airway into Trachea, Via Natural or Artificial Opening (ICD-10-PCS; 2021-06-09)
PROC: 5A09357 Assistance with Respiratory Ventilation, Less than 24 Consecutive Hours, Continuous Positive Airway Pressure (ICD-10-PCS; 2021-06-09)
PROC: 5A1955Z Respiratory Ventilation, Greater than 96 Consecutive Hours (ICD-10-PCS; 2021-07-09)
PROC: 5A09357 Assistance with Respiratory Ventilation, Less than 24 Consecutive Hours, Continuous Positive Airway Pressure (ICD-10-PCS; 2021-07-11)
PROC: 5A09357 Assistance with Respiratory Ventilation, Less than 24 Consecutive Hours, Continuous Positive Airway Pressure (ICD-10-PCS; 2021-07-13)
PROC: 5A09357 Assistance with Respiratory Ventilation, Less than 24 Consecutive Hours, Continuous Positive Airway Pressure (ICD-10-PCS; 2021-07-14)
PROC: 5A1955Z Respiratory Ventilation, Greater than 96 Consecutive Hours (ICD-10-PCS; 2021-07-15)
PROC: 0BH17EZ Insertion of Endotracheal Airway into Trachea, Via Natural or Artificial Opening (ICD-10-PCS; 2021-07-15)
PROC: 30233K1 Transfusion of Nonautologous Frozen Plasma into Peripheral Vein, Percutaneous Approach (ICD-10-PCS; 2021-07-19)
PROC: 30233N1 Transfusion of Nonautologous Red Blood Cells into Peripheral Vein, Percutaneous Approach (ICD-10-PCS; 2021-07-20)
PROC: 0B113F4 Bypass Trachea to Cutaneous with Tracheostomy Device, Percutaneous Approach (ICD-10-PCS; principal; 2021-07-20 10:47)
PROC: 0WJF4ZZ Inspection of Abdominal Wall, Percutaneous Endoscopic Approach (ICD-10-PCS; 2021-07-22)
DX: A41.01 Sepsis due to Methicillin susceptible Staphylococcus aureus (principal); R65.21 Severe sepsis with septic shock; I50.43 Acute on chronic combined systolic (congestive) and diastolic (congestive) heart failure; J15.211 Pneumonia due to Methicillin susceptible Staphylococcus aureus; E43 Unspecified severe protein-calorie malnutrition; J96.21 Acute and chronic respiratory failure with hypoxia; J96.22 Acute and chronic respiratory failure with hypercapnia; I21.A1 Myocardial infarction type 2; N17.0 Acute kidney failure with tubular necrosis; J44.1 Chronic obstructive pulmonary disease with (acute) exacerbation; E66.2 Morbid (severe) obesity with alveolar hypoventilation; N39.0 Urinary tract infection, site not specified; I47.1 Supraventricular tachycardia; J44.0 Chronic obstructive pulmonary disease with (acute) lower respiratory infection; D68.69 Other thrombophilia; D68.32 Hemorrhagic disorder due to extrinsic circulating anticoagulants; E87.0 Hyperosmolality and hypernatremia; J98.11 Atelectasis; Z68.44 Body mass index [BMI] 60.0-69.9, adult; I13.0 Hypertensive heart and chronic kidney disease with heart failure and stage 1 through stage 4 chronic kidney disease, or unspecified chronic kidney disease; D62 Acute posthemorrhagic anemia; Z99.11 Dependence on respirator [ventilator] status; N18.31 Chronic kidney disease, stage 3a; E11.21 Type 2 diabetes mellitus with diabetic nephropathy; E03.9 Hypothyroidism, unspecified; M06.9 Rheumatoid arthritis, unspecified; E78.5 Hyperlipidemia, unspecified; K29.90 Gastroduodenitis, unspecified, without bleeding; K44.9 Diaphragmatic hernia without obstruction or gangrene; N95.0 Postmenopausal bleeding; Z20.822 Contact with and (suspected) exposure to COVID-19; Z53.8 Procedure and treatment not carried out for other reasons; R68.0 Hypothermia, not associated with low environmental temperature; E11.22 Type 2 diabetes mellitus with diabetic chronic kidney disease; T45.515A Adverse effect of anticoagulants, initial encounter; Y92.89 Other specified places as the place of occurrence of the external cause; Z83.3 Family history of diabetes mellitus; Z90.49 Acquired absence of other specified parts of digestive tract
CPT/HCPCS: 36415; 36569; 36600; 71045; 76604; 76856; 80048; 80053; 80076; 80162; 80202; 80307; 81001; 82040; 82306; 82533; 82728; 82805; 82962; 83036; 83605; 83735; 83880; 84100; 84132; 84443; 84478; 84484; 84550; 85014; 85018; 85025; 85379; 85610; 85730; 86141; 86850; 86900; 86901; 86920; 87040; 87070; 87077; 87081; 87086; 87088; 87186; 87205; 87426; 92507; 92610; 93005; 93306; 93970; 94002; 94003; 94640; 94660; 94667; 96365; 96367; 96375; 97110; 97163; 99291; C9113; G0378; J0330; J0690; J0696; J1815; J1956; J2185; J2250; J2405; J2543; J2704; J3430; J3480; J3490; J7060

== ENCOUNTER 2022-10-24 07:05 | Inpatient (IN) | payer OTHER ==
[~2022-10-24] VITALS: Ht 167.6 cm; Wt 150.0 kg
[2022-10-24] VITALS (45 sets, daily range): BP systolic 74–166; BP diastolic 24–111
[~2022-10-24 07:05] MED LIST: DABI150C5 PO; DILT60TA PO; FLUC100T34 PO; FOLI1TAB6 PO; FURO40TA4 PO; LOSA25TA38 PO; METH2.5T PO; NYS15PW TOP; PANT40TA2 PO; PRED20TA2 PO; SUCR1SUS10 PO
[2022-10-24 07:35] LABS: Basophils # (auto) 0.1 10 ^3/uL (0-0.2); Eosinophils % (auto) 0.5 % (0.0-7.0); Hematocrit 31.3 % (36.0-46.0); Hemoglobin 9.5 g/dL (12.2-16.2); Lymphocytes # (auto) 0.8 10 ^3/uL (0.4-5.4); Monocytes # (auto) 0.7 10 ^3/uL (0-1.3)
[2022-10-24 07:39] LABS: Basophils % (auto) 1.1 % (0.0-2.0); Eosinophils # (auto) 0 10 ^3/uL (0-0.8); Lymphocytes % (auto) 8.4 % (10.0-50.0); Mean Corpuscular Hgb Conc. 30.3 g/dL (32.0-36.0); Mean Corpuscular Volume 75.7 fL (80.0-100.0); Monocytes % (auto) 7.3 % (0.0-12.0); Neutrophils # (auto) 8.2 10 ^3/uL (1.6-8.6); Neutrophils % (auto) 82.7 % (37.0-80.0); Red Blood Cells 4.13 10^6/uL (4.0-5.20); Red Cell Distribution Width 18.5 % (11.8-14.3); White Blood Cell 9.9 10^3/uL (4.4-10.8)
[2022-10-24] MEDS ORDERED: ALBUTEROL SULF 2.5 MG/0.5ML(0.5%) NEB SOLN NEB ONE ×3 (07:45→20:00)
[2022-10-24] MEDS ORDERED: AZITHROMYCIN 500MG/ 250ML 250 ML IV ONE (07:45)
[2022-10-24] MEDS ORDERED: cefTRIAXone 1GM/50ML D5W 50 ML IV ONE (07:45)
[2022-10-24] MEDS ORDERED: methylPREDNISolone SOD SUCC 125 MG/2 ML VL IV ONE (07:45)
[2022-10-24] MEDS ORDERED: FUROSEMIDE 40 MG/4 ML VIAL IV ONE (07:45)
[2022-10-24] MEDS ORDERED: IPRATROPIUM BROM 0.5 MG/2.5ML INH SOL NEB ONE (07:45)
[2022-10-24 08:00] LABS: Calcium 8.7 mg/dL (8.5-10.1)
[2022-10-24 08:03] LABS: BUN/Creatinine Ratio 37.6 (10.0-20.0); Bilirubin, Total 0.4 mg/dL (0.2-1.0); Total Protein 6.8 g/dL (6.4-8.2)
[2022-10-24 08:10] LABS: Potassium 6.6 mmol/L (3.5-5.1)
[2022-10-24] MEDS ORDERED: SODIUM ZIRCONIUM CYCL 10 GM PAK PO ONE ×3 (08:15→20:00)
[2022-10-24] MEDS ORDERED: FUROSEMIDE 20 MG/2 ML VIAL IV ONE (08:15)
[2022-10-24] MEDS ORDERED: InsuLIN REG 1unit/0.01ml Soln (100units/ml) IV ONE ×2 (08:15→20:00)
[2022-10-24] MEDS ORDERED: CALCIUM GLUC 1,000mg/50ml-NS 50 ML IV ONE ×3 (08:15→20:31)
[2022-10-24] MEDS ORDERED: SODIUM BICARBONATE 8.4% INJ 50ML SYRINGE IV ONE ×2 (08:15→20:00)
[2022-10-24] MEDS ORDERED: DEXTROSE (50%) 50ML SYRG IV ONE ×2 (08:15→20:00)
[2022-10-24] MEDS ORDERED: IPRATROPIUM BROM 0.5 MG/2.5ML INH SOL NEB PRN (09:15)
[2022-10-24] MEDS ORDERED: ALBUTEROL SULF 2.5 MG/0.5ML(0.5%) NEB SOLN NEB PRN (09:15)
[2022-10-24] MEDS ORDERED: ENOXAPARIN SOD 100 MG/1 ML SYRINGE SC ONE (10:15)
[2022-10-24] MEDS ORDERED: PANTOPRAZOLE 40 MG/10 ML VIAL INJ IV ONE (10:15)
[2022-10-24] MEDS ORDERED: MORPHINE SULFATE INJ 2 MG/ml SYRG IV PRN ×2 (10:15)
[2022-10-24] MEDS ORDERED: NITROGLYCERIN 0.4 MG SL TAB SL PRN (10:15)
[2022-10-24] MEDS ORDERED: HYDROcodone-ACET 5/325MG TAB PO PRN (10:15)
[2022-10-24 10:20] LABS: INR 1.01 (0.9-1.15); Partial Thromboplastin Time 31.3 sec (24.6-33.4)
[2022-10-24 10:25] LABS: Cholesterol 109 mg/dL (< 200); HDL Cholesterol 64 mg/dL (40-59); LDL Cholesterol 42 mg/dL (< 100); Triglycerides 59 mg/dL (< 150)
[2022-10-24] MEDS ORDERED: DEXTROSE (50%) 50ML SYRG IV PRN (10:30)
[2022-10-24] MEDS: NOREPINEPHRINE 8 MG/250ML KIT 250 ML IV SCH (11:00)
[2022-10-24] MEDS ORDERED: NOREPINEPHRINE 8 MG/250ML KIT 250 ML IV ONE (11:03)
[2022-10-24 11:46] LABS: Urine Bacteria FEW /hpf (None Seen); Urine Blood 1+ /uL (Negative); Urine Mucus FEW (None Seen); Urine Specific Gravity 1.018 (1.001-1.035); Urine WBC 223 /hpf (0 - 5); Urine WBC Clumps PRESENT /hpf (None Seen)
[2022-10-24] MEDS: ALBUTEROL SULF 2.5 MG/0.5ML(0.5%) NEB SOLN NEB SCH ×2 (12:00→18:19)
[2022-10-24] MEDS: IPRATROPIUM BROM 0.5 MG/2.5ML INH SOL NEB SCH ×2 (12:00→18:19)
[2022-10-24 12:04] LABS: Amphetamine Screen, Urine NEGATIVE (NEGATIVE); Barbiturate Scree,Urine NEGATIVE (NEGATIVE); Benzodiazephine Screen, Urine NEGATIVE (NEGATIVE); Cannabinoid Screen, Urine NEGATIVE (NEGATIVE); Cocaine Screen, Urine NEGATIVE (NEGATIVE); Opiate Scree,Urine NEGATIVE (NEGATIVE); Phencyclidine Screen, Urine NEGATIVE (NEGATIVE)
[2022-10-24] MEDS: ACCU-CHEK COMFORT CURVE STRIP VI SCH ×2 (12:21→18:49)
[2022-10-24] MEDS: InsuLIN REG 1unit/0.01ml Soln (100units/ml) SC SCH ×3 (12:23→23:57)
[2022-10-24 12:44] LABS: BUN/Creatinine Ratio 36.3 (10.0-20.0); Calcium 9.1 mg/dL (8.5-10.1)
[2022-10-24 12:52] LABS: Potassium 5.7 mmol/L (3.5-5.1)
[2022-10-24 14:36] LABS: Protein, Urine 63.9 mg/dL (0.0-11.9)
[2022-10-24] MEDS ORDERED: ETOMIDATE (2MG/ML) 20ML VIAL IV ONE (16:00)
[2022-10-24] MEDS: fentaNYL Drip 2500mCg/250mlNS 250 ML IV SCH ×2 (16:00→21:07)
[2022-10-24] MEDS ORDERED: ROCURONIUM 10MG/ML 10ML VIAL IV ONE (16:00)
[2022-10-24] MEDS: PROPOFOL 100 ML IV SCH ×2 (16:47→21:13)
[2022-10-24] MEDS ORDERED: LIDOCAINE 1% (LOCAL ANESTH.) PF 5ml SDV ID ONE (17:45)
[2022-10-24] MEDS: FUROSEMIDE 20 MG/2 ML VIAL IV SCH (18:40)
[2022-10-24 18:46] LABS: BUN/Creatinine Ratio 37.9 (10.0-20.0)
[2022-10-24 19:49] LABS: Potassium 5.9 mmol/L (3.5-5.1)
[2022-10-24] MEDS ORDERED: DEXTROSE 10% 250 ML Bag IV ONE (20:30)
[2022-10-24] MEDS ORDERED: SODIUM BICARBONATE 8.4% INJ 50ML SYRINGE ONE (20:30)
[2022-10-24] MEDS ORDERED: DEXTROSE 10% 250 ML IV ONE (20:31)
[2022-10-24] MEDS ORDERED: SODIUM ZIRCONIUM CYCL 10 GM PAK ONE (20:31)
[2022-10-24] MEDS: SODIUM CHLOR 0.9% PF (SALINE LOCK) 10ML VIAL/SYR IV SCH (22:00)
[2022-10-24] MEDS: methylPREDNISolone SOD SUCC 125 MG/2 ML VL IV SCH (22:00)
[2022-10-24 23:35] LABS: Albumin 2.9 g/dL (3.4-5.0); Calcium 9.6 mg/dL (8.5-10.1); Potassium 5.4 mmol/L (3.5-5.1)
[2022-10-24 23:43] LABS: BUN/Creatinine Ratio 37.8 (10.0-20.0); Bilirubin, Total 0.6 mg/dL (0.2-1.0); Total Protein 6.9 g/dL (6.4-8.2)
[2022-10-25] VITALS (103 sets, daily range): BP systolic 79–153; BP diastolic 33–74
[2022-10-25] MEDS: IPRATROPIUM BROM 0.5 MG/2.5ML INH SOL NEB SCH ×5 (00:03→23:38)
[2022-10-25] MEDS: ALBUTEROL SULF 2.5 MG/0.5ML(0.5%) NEB SOLN NEB SCH ×5 (00:03→23:38)
[2022-10-25] MEDS: PROPOFOL 100 ML IV SCH ×9 (00:10→23:29)
[2022-10-25 04:18] LABS: Basophils # (auto) 0 10 ^3/uL (0-0.2); Basophils % (auto) 0.1 % (0.0-2.0); Eosinophils # (auto) 0 10 ^3/uL (0-0.8); Hematocrit 28.7 % (36.0-46.0); Hemoglobin 9.1 g/dL (12.2-16.2); Lymphocytes # (auto) 0.4 10 ^3/uL (0.4-5.4); Lymphocytes % (auto) 2.5 % (10.0-50.0); Mean Corpuscular Hgb Conc. 31.8 g/dL (32.0-36.0); Mean Corpuscular Volume 72.5 fL (80.0-100.0); Monocytes # (auto) 0.7 10 ^3/uL (0-1.3); Monocytes % (auto) 4.6 % (0.0-12.0); Neutrophils # (auto) 14.7 10 ^3/uL (1.6-8.6); Neutrophils % (auto) 92.8 % (37.0-80.0); Nucleated Red Blood Cells % 0.3 %; Red Blood Cells 3.96 10^6/uL (4.0-5.20); Red Cell Distribution Width 18.7 % (11.8-14.3); White Blood Cell 15.9 10^3/uL (4.4-10.8)
[2022-10-25 04:29] LABS: Albumin 2.9 g/dL (3.4-5.0); Calcium 9.3 mg/dL (8.5-10.1); Potassium 5.1 mmol/L (3.5-5.1)
[2022-10-25 04:32] LABS: Bilirubin, Total 0.7 mg/dL (0.2-1.0); Total Protein 6.7 g/dL (6.4-8.2)
[2022-10-25] MEDS: InsuLIN REG 1unit/0.01ml Soln (100units/ml) SC SCH ×3 (05:32→18:22)
[2022-10-25] MEDS: FUROSEMIDE 20 MG/2 ML VIAL IV SCH ×2 (05:38→18:18)
[2022-10-25] MEDS: ACCU-CHEK COMFORT CURVE STRIP VI SCH ×4 (05:38→17:55)
[2022-10-25] MEDS ORDERED: LIDOCAINE 2% JELLY 11ml (GLYDO) ONE ×2 (09:04→09:09)
[2022-10-25] MEDS ORDERED: LIDOCAINE 2%HCL (LOCAL ANESTH.) INJ 20ML MDV ONE (09:04)
[2022-10-25] MEDS ORDERED: GLYCOPYRROLATE 0.2 MG/ML 1ML VIAL ONE ×2 (09:05→10:10)
[2022-10-25] MEDS ORDERED: EPINEPHrine HCL 1 MG/1 ML AMP ONE (09:05)
[2022-10-25] MEDS ORDERED: FLUMAZENIL 0.1 MG/ML INJ 10ML MDV IV ONE (09:08)
[2022-10-25] MEDS ORDERED: NALOXONE HCL 0.4 MG/ML VIAL ONE (09:08)
[2022-10-25] MEDS: cefTRIAXone 1GM/50ML D5W 50 ML IV SCH (09:45)
[2022-10-25] MEDS: MIDAZOLAM DRIP 50 mg/50mL 50 ML IV SCH (09:49)
[2022-10-25] MEDS: PANTOPRAZOLE 40 MG/10 ML VIAL INJ IV SCH (09:53)
[2022-10-25] MEDS: methylPREDNISolone SOD SUCC 125 MG/2 ML VL IV SCH ×2 (09:53→22:27)
[2022-10-25] MEDS: SODIUM CHLOR 0.9% PF (SALINE LOCK) 10ML VIAL/SYR IV SCH ×2 (10:03→22:26)
[2022-10-25] MEDS: ENOXAPARIN SOD 40 MG/0.4 ML SYRINGE SC SCH ×2 (10:33→22:27)
[2022-10-25] MEDS: AZITHROMYCIN 500MG/ 250ML 250 ML IV SCH (10:33)
[2022-10-25] MEDS: fentaNYL Drip 2500mCg/250mlNS 250 ML IV SCH (11:32)
[2022-10-25] MEDS: DOPamine 1600MCG/ML D5W 250 ML IV SCH (11:45)
[2022-10-25 12:26] LABS: Potassium 4.6 mmol/L (3.5-5.1)
[2022-10-25 12:35] LABS: BUN/Creatinine Ratio 38.7 (10.0-20.0); Calcium 6.2 mg/dL (8.5-10.1)
[2022-10-25] MEDS: NOREPINEPHRINE 8 MG/250ML KIT 250 ML IV SCH (12:50)
[2022-10-25 18:48] LABS: Potassium 4.5 mmol/L (3.5-5.1)
[2022-10-25 18:53] LABS: Calcium 7.4 mg/dL (8.5-10.1)
[2022-10-25 19:06] LABS: BUN/Creatinine Ratio 39.9 (10.0-20.0)
[2022-10-25] MEDS: NYSTATIN TOPICAL POWDER 15GM TOP SCH (22:27)
[2022-10-26] VITALS (96 sets, daily range): BP systolic 73–160; BP diastolic 33–89
[2022-10-26] MEDS: InsuLIN REG 1unit/0.01ml Soln (100units/ml) SC SCH ×4 (00:32→16:26)
[2022-10-26] MEDS: ACCU-CHEK COMFORT CURVE STRIP VI SCH ×5 (00:32→23:52)
[2022-10-26] MEDS: fentaNYL Drip 2500mCg/250mlNS 250 ML IV SCH ×2 (00:42→13:54)
[2022-10-26] MEDS: PROPOFOL 100 ML IV SCH ×7 (03:09→21:49)
[2022-10-26] MEDS: FUROSEMIDE 20 MG/2 ML VIAL IV SCH ×2 (05:39→16:30)
[2022-10-26] MEDS: DOPamine 1600MCG/ML D5W 250 ML IV SCH (06:26)
[2022-10-26 06:38] LABS: BUN/Creatinine Ratio 40.3 (10.0-20.0); Calcium 9.1 mg/dL (8.5-10.1); Potassium 4.2 mmol/L (3.5-5.1)
[2022-10-26 06:39] LABS: Basophils # (auto) 0 10 ^3/uL (0-0.2); Basophils % (auto) 0.1 % (0.0-2.0); Eosinophils # (auto) 0 10 ^3/uL (0-0.8); Hematocrit 28.4 % (36.0-46.0); Hemoglobin 9.1 g/dL (12.2-16.2); Lymphocytes # (auto) 0.8 10 ^3/uL (0.4-5.4); Lymphocytes % (auto) 6.2 % (10.0-50.0); Mean Corpuscular Hemoglobin 22.3 pg (28.0-32.0); Mean Corpuscular Volume 69.8 fL (80.0-100.0); Monocytes # (auto) 0.8 10 ^3/uL (0-1.3); Monocytes % (auto) 6.2 % (0.0-12.0); Neutrophils % (auto) 87.5 % (37.0-80.0); Red Blood Cells 4.06 10^6/uL (4.0-5.20); Red Cell Distribution Width 19.1 % (11.8-14.3); White Blood Cell 12.6 10^3/uL (4.4-10.8)
[2022-10-26] MEDS: IPRATROPIUM BROM 0.5 MG/2.5ML INH SOL NEB SCH ×3 (07:00→18:27)
[2022-10-26] MEDS: ALBUTEROL SULF 2.5 MG/0.5ML(0.5%) NEB SOLN NEB SCH ×3 (07:00→18:26)
[2022-10-26] MEDS: methylPREDNISolone SOD SUCC 125 MG/2 ML VL IV SCH ×2 (07:50→21:38)
[2022-10-26] MEDS: ENOXAPARIN SOD 40 MG/0.4 ML SYRINGE SC SCH ×2 (07:50→21:35)
[2022-10-26] MEDS: PANTOPRAZOLE 40 MG/10 ML VIAL INJ IV SCH (07:50)
[2022-10-26] MEDS: cefTRIAXone 1GM/50ML D5W 50 ML IV SCH (07:52)
[2022-10-26] MEDS: AZITHROMYCIN 500MG/ 250ML 250 ML IV SCH (07:52)
[2022-10-26] MEDS: NYSTATIN TOPICAL POWDER 15GM TOP SCH ×2 (08:12→21:40)
[2022-10-26] MEDS: SODIUM CHLOR 0.9% PF (SALINE LOCK) 10ML VIAL/SYR IV SCH ×2 (08:12→21:39)
[2022-10-26] MEDS: MIDAZOLAM DRIP 50 mg/50mL 50 ML IV SCH (09:00)
[2022-10-26] MEDS: acetaZOLAMIDE SODIUM 500 MG VL IV SCH (21:35)
[2022-10-27] VITALS (105 sets, daily range): BP systolic 91–137; BP diastolic 40–73
[2022-10-27] MEDS: ALBUTEROL SULF 2.5 MG/0.5ML(0.5%) NEB SOLN NEB SCH ×3 (00:05→18:21)
[2022-10-27] MEDS: IPRATROPIUM BROM 0.5 MG/2.5ML INH SOL NEB SCH ×3 (00:05→18:21)
[2022-10-27] MEDS: InsuLIN REG 1unit/0.01ml Soln (100units/ml) SC SCH ×4 (00:09→16:49)
[2022-10-27] MEDS: PROPOFOL 100 ML IV SCH ×5 (01:09→21:23)
[2022-10-27] MEDS: NOREPINEPHRINE 8 MG/250ML KIT 250 ML IV SCH ×2 (02:42→11:00)
[2022-10-27] MEDS: ACCU-CHEK COMFORT CURVE STRIP VI SCH ×3 (05:41→16:45)
[2022-10-27] MEDS: FUROSEMIDE 20 MG/2 ML VIAL IV SCH ×2 (06:08→16:49)
[2022-10-27 06:19] LABS: Basophils # (auto) 0 10 ^3/uL (0-0.2); Eosinophils # (auto) 0 10 ^3/uL (0-0.8); Hemoglobin 8.9 g/dL (12.2-16.2); Mean Corpuscular Hemoglobin 22.8 pg (28.0-32.0)
[2022-10-27 06:22] LABS: Hematocrit 28.2 % (36.0-46.0); Lymphocytes # (auto) 0.4 10 ^3/uL (0.4-5.4); Lymphocytes % (auto) 5.5 % (10.0-50.0); Mean Corpuscular Hgb Conc. 31.4 g/dL (32.0-36.0); Mean Corpuscular Volume 72.5 fL (80.0-100.0); Monocytes # (auto) 0.3 10 ^3/uL (0-1.3); Monocytes % (auto) 4.9 % (0.0-12.0); Neutrophils # (auto) 5.9 10 ^3/uL (1.6-8.6); Neutrophils % (auto) 89.6 % (37.0-80.0); Nucleated Red Blood Cells % 0.1 %; Red Blood Cells 3.89 10^6/uL (4.0-5.20); Red Cell Distribution Width 19.2 % (11.8-14.3); White Blood Cell 6.6 10^3/uL (4.4-10.8)
[2022-10-27 06:32] LABS: BUN/Creatinine Ratio 38.4 (10.0-20.0); Calcium 8.7 mg/dL (8.5-10.1); Potassium 3.8 mmol/L (3.5-5.1)
[2022-10-27] MEDS: SODIUM CHLOR 0.9% PF (SALINE LOCK) 10ML VIAL/SYR IV SCH ×2 (07:33→22:00)
[2022-10-27] MEDS: acetaZOLAMIDE SODIUM 500 MG VL IV SCH ×2 (07:55→21:59)
[2022-10-27] MEDS: PANTOPRAZOLE 40 MG/10 ML VIAL INJ IV SCH (07:55)
[2022-10-27] MEDS: ENOXAPARIN SOD 40 MG/0.4 ML SYRINGE SC SCH ×2 (07:55→21:57)
[2022-10-27] MEDS: cefTRIAXone 1GM/50ML D5W 50 ML IV SCH (07:55)
[2022-10-27] MEDS: AZITHROMYCIN 500MG/ 250ML 250 ML IV SCH (07:56)
[2022-10-27] MEDS: NYSTATIN TOPICAL POWDER 15GM TOP SCH ×2 (07:56→22:00)
[2022-10-27] MEDS: methylPREDNISolone SOD SUCC 125 MG/2 ML VL IV SCH ×2 (07:56→21:55)
[2022-10-27] MEDS: MIDAZOLAM DRIP 50 mg/50mL 50 ML IV SCH (09:00)
[2022-10-27] MEDS: POTASSIUM CHL 20MEQ/100ML 100 ML IV SCH ×2 (14:28→16:15)
[2022-10-27] MEDS: DOPamine 1600MCG/ML D5W 250 ML IV SCH ×2 (14:28→23:00)
[2022-10-27] MEDS: fentaNYL Drip 2500mCg/250mlNS 250 ML IV SCH (16:00)
[2022-10-28] VITALS (105 sets, daily range): BP systolic 117–171; BP diastolic 51–88
[2022-10-28] MEDS: ALBUTEROL SULF 2.5 MG/0.5ML(0.5%) NEB SOLN NEB SCH ×4 (00:09→18:21)
[2022-10-28] MEDS: IPRATROPIUM BROM 0.5 MG/2.5ML INH SOL NEB SCH ×4 (00:10→18:21)
[2022-10-28] MEDS: InsuLIN REG 1unit/0.01ml Soln (100units/ml) SC SCH ×4 (00:18→17:17)
[2022-10-28] MEDS: PROPOFOL 100 ML IV SCH ×4 (00:21→17:12)
[2022-10-28] MEDS: ACCU-CHEK COMFORT CURVE STRIP VI SCH ×4 (00:21→17:13)
[2022-10-28 05:16] LABS: Basophils # (auto) 0 10 ^3/uL (0-0.2); Eosinophils # (auto) 0 10 ^3/uL (0-0.8); Neutrophils # (auto) 5.4 10 ^3/uL (1.6-8.6); Red Blood Cells 3.99 10^6/uL (4.0-5.20); White Blood Cell 6.3 10^3/uL (4.4-10.8)
[2022-10-28 05:18] LABS: Basophils % (auto) 0.1 % (0.0-2.0); Hematocrit 28.4 % (36.0-46.0); Hemoglobin 9.3 g/dL (12.2-16.2); Lymphocytes # (auto) 0.4 10 ^3/uL (0.4-5.4); Lymphocytes % (auto) 6.9 % (10.0-50.0); Mean Corpuscular Hemoglobin 23.3 pg (28.0-32.0); Mean Corpuscular Hgb Conc. 32.7 g/dL (32.0-36.0); Mean Corpuscular Volume 71.2 fL (80.0-100.0); Monocytes # (auto) 0.4 10 ^3/uL (0-1.3); Monocytes % (auto) 6.8 % (0.0-12.0); Neutrophils % (auto) 86.2 % (37.0-80.0); Red Cell Distribution Width 19.2 % (11.8-14.3)
[2022-10-28 05:33] LABS: BUN/Creatinine Ratio 38.8 (10.0-20.0); Calcium 8.9 mg/dL (8.5-10.1); Potassium 3.7 mmol/L (3.5-5.1)
[2022-10-28] MEDS: FUROSEMIDE 20 MG/2 ML VIAL IV SCH ×2 (06:39→17:11)
[2022-10-28] MEDS: MIDAZOLAM DRIP 50 mg/50mL 50 ML IV SCH (09:50)
[2022-10-28] MEDS: methylPREDNISolone SOD SUCC 125 MG/2 ML VL IV SCH ×2 (09:56→21:27)
[2022-10-28] MEDS: SODIUM CHLOR 0.9% PF (SALINE LOCK) 10ML VIAL/SYR IV SCH ×2 (09:57→21:28)
[2022-10-28] MEDS: NYSTATIN TOPICAL POWDER 15GM TOP SCH ×2 (09:57→21:28)
[2022-10-28] MEDS: PANTOPRAZOLE 40 MG/10 ML VIAL INJ IV SCH (09:57)
[2022-10-28] MEDS: ENOXAPARIN SOD 40 MG/0.4 ML SYRINGE SC SCH ×2 (09:57→21:27)
[2022-10-28] MEDS: cefTRIAXone 1GM/50ML D5W 50 ML IV SCH (10:00)
[2022-10-28] MEDS: NOREPINEPHRINE 8 MG/250ML KIT 250 ML IV SCH (11:00)
[2022-10-28] MEDS: DOPamine 1600MCG/ML D5W 250 ML IV SCH (11:13)
[2022-10-28] MEDS: AZITHROMYCIN 500MG/ 250ML 250 ML IV SCH (11:13)
[2022-10-28] MEDS: fentaNYL Drip 2500mCg/250mlNS 250 ML IV SCH (16:00)
[2022-10-29] VITALS (103 sets, daily range): BP systolic 95–170; BP diastolic 40–87
[2022-10-29] MEDS: IPRATROPIUM BROM 0.5 MG/2.5ML INH SOL NEB SCH ×4 (00:05→18:18)
[2022-10-29] MEDS: ALBUTEROL SULF 2.5 MG/0.5ML(0.5%) NEB SOLN NEB SCH ×4 (00:05→18:17)
[2022-10-29] MEDS: ACCU-CHEK COMFORT CURVE STRIP VI SCH ×5 (00:43→23:29)
[2022-10-29] MEDS: InsuLIN REG 1unit/0.01ml Soln (100units/ml) SC SCH ×5 (00:45→23:30)
[2022-10-29] MEDS: fentaNYL Drip 2500mCg/250mlNS 250 ML IV SCH (01:58)
[2022-10-29] MEDS: PROPOFOL 100 ML IV SCH ×2 (01:59→18:42)
[2022-10-29 05:27] LABS: Basophils # (auto) 0.1 10 ^3/uL (0-0.2); Basophils % (auto) 0.8 % (0.0-2.0); Eosinophils # (auto) 0 10 ^3/uL (0-0.8); Hemoglobin 9.9 g/dL (12.2-16.2); Lymphocytes # (auto) 0.5 10 ^3/uL (0.4-5.4); Lymphocytes % (auto) 7.5 % (10.0-50.0); Mean Corpuscular Hemoglobin 22.4 pg (28.0-32.0); Mean Corpuscular Hgb Conc. 31.8 g/dL (32.0-36.0); Mean Corpuscular Volume 70.3 fL (80.0-100.0); Monocytes # (auto) 0.4 10 ^3/uL (0-1.3); Monocytes % (auto) 6.3 % (0.0-12.0); Neutrophils # (auto) 5.8 10 ^3/uL (1.6-8.6); Neutrophils % (auto) 85.4 % (37.0-80.0); Red Cell Distribution Width 19.3 % (11.8-14.3); White Blood Cell 6.8 10^3/uL (4.4-10.8)
[2022-10-29] MEDS: DOPamine 1600MCG/ML D5W 250 ML IV SCH (05:32)
[2022-10-29] MEDS: FUROSEMIDE 20 MG/2 ML VIAL IV SCH ×2 (05:34→16:08)
[2022-10-29 05:57] LABS: Albumin 2.7 g/dL (3.4-5.0); Calcium 8.8 mg/dL (8.5-10.1); Potassium 3.6 mmol/L (3.5-5.1)
[2022-10-29 06:01] LABS: BUN/Creatinine Ratio 40.6 (10.0-20.0); Bilirubin, Total 0.4 mg/dL (0.2-1.0); Total Protein 6.1 g/dL (6.4-8.2)
[2022-10-29] MEDS: ENOXAPARIN SOD 40 MG/0.4 ML SYRINGE SC SCH ×2 (08:07→22:12)
[2022-10-29] MEDS: PANTOPRAZOLE 40 MG/10 ML VIAL INJ IV SCH (08:07)
[2022-10-29] MEDS: methylPREDNISolone SOD SUCC 125 MG/2 ML VL IV SCH ×2 (08:07→22:13)
[2022-10-29] MEDS: cefTRIAXone 1GM/50ML D5W 50 ML IV SCH (08:08)
[2022-10-29] MEDS: AZITHROMYCIN 500MG/ 250ML 250 ML IV SCH (08:08)
[2022-10-29] MEDS: SODIUM CHLOR 0.9% PF (SALINE LOCK) 10ML VIAL/SYR IV SCH ×2 (08:15→22:13)
[2022-10-29] MEDS: NYSTATIN TOPICAL POWDER 15GM TOP SCH ×2 (08:15→22:13)
[2022-10-29] MEDS: NOREPINEPHRINE 8 MG/250ML KIT 250 ML IV SCH (08:15)
[2022-10-29] MEDS: MIDAZOLAM DRIP 50 mg/50mL 50 ML IV SCH (09:00)
[2022-10-29] MEDS: POTASSIUM CHL 20MEQ/100ML 100 ML IV SCH ×2 (10:28→12:00)
[2022-10-30] VITALS (72 sets, daily range): BP systolic 94–144; BP diastolic 19–76
[2022-10-30] MEDS: ALBUTEROL SULF 2.5 MG/0.5ML(0.5%) NEB SOLN NEB SCH ×4 (00:22→18:43)
[2022-10-30] MEDS: IPRATROPIUM BROM 0.5 MG/2.5ML INH SOL NEB SCH ×4 (00:22→18:43)
[2022-10-30] MEDS: ACCU-CHEK COMFORT CURVE STRIP VI SCH ×4 (05:35→23:19)
[2022-10-30] MEDS: InsuLIN REG 1unit/0.01ml Soln (100units/ml) SC SCH ×4 (05:37→23:19)
[2022-10-30] MEDS: FUROSEMIDE 20 MG/2 ML VIAL IV SCH ×2 (05:39→17:32)
[2022-10-30] MEDS: cefTRIAXone 1GM/50ML D5W 50 ML IV SCH (08:43)
[2022-10-30] MEDS: MIDAZOLAM DRIP 50 mg/50mL 50 ML IV SCH (08:52)
[2022-10-30] MEDS: PANTOPRAZOLE 40 MG/10 ML VIAL INJ IV SCH (09:04)
[2022-10-30] MEDS: methylPREDNISolone SOD SUCC 125 MG/2 ML VL IV SCH ×2 (09:04→22:14)
[2022-10-30] MEDS: ENOXAPARIN SOD 40 MG/0.4 ML SYRINGE SC SCH ×2 (09:05→22:15)
[2022-10-30] MEDS: NYSTATIN TOPICAL POWDER 15GM TOP SCH ×2 (09:05→22:15)
[2022-10-30] MEDS: SODIUM CHLOR 0.9% PF (SALINE LOCK) 10ML VIAL/SYR IV SCH ×2 (09:05→22:14)
[2022-10-30] MEDS: AZITHROMYCIN 500MG/ 250ML 250 ML IV SCH (09:25)
[2022-10-30] MEDS: NOREPINEPHRINE 8 MG/250ML KIT 250 ML IV SCH (11:00)
[2022-10-30] MEDS: fentaNYL Drip 2500mCg/250mlNS 250 ML IV SCH (16:00)
[2022-10-31] VITALS (38 sets, daily range): BP systolic 109–157; BP diastolic 36–108
[2022-10-31] MEDS: ALBUTEROL SULF 2.5 MG/0.5ML(0.5%) NEB SOLN NEB SCH ×4 (00:14→18:25)
[2022-10-31] MEDS: IPRATROPIUM BROM 0.5 MG/2.5ML INH SOL NEB SCH ×4 (00:14→18:25)
[2022-10-31] MEDS: FUROSEMIDE 20 MG/2 ML VIAL IV SCH ×2 (05:48→17:19)
[2022-10-31] MEDS: InsuLIN REG 1unit/0.01ml Soln (100units/ml) SC SCH ×3 (06:00→17:27)
[2022-10-31] MEDS: ACCU-CHEK COMFORT CURVE STRIP VI SCH ×3 (06:00→17:20)
[2022-10-31 06:30] LABS: BUN/Creatinine Ratio 46.6 (10.0-20.0); Calcium 9.3 mg/dL (8.5-10.1); Potassium 3.6 mmol/L (3.5-5.1)
[2022-10-31 06:33] LABS: Basophils # (auto) 0 10 ^3/uL (0-0.2); Eosinophils # (auto) 0 10 ^3/uL (0-0.8); Hemoglobin 9.6 g/dL (12.2-16.2); Mean Corpuscular Hemoglobin 22.4 pg (28.0-32.0); Red Cell Distribution Width 19.1 % (11.8-14.3); White Blood Cell 12.7 10^3/uL (4.4-10.8)
[2022-10-31 06:36] LABS: Basophils % (auto) 0.3 % (0.0-2.0); Hematocrit 30.9 % (36.0-46.0); Lymphocytes # (auto) 0.8 10 ^3/uL (0.4-5.4); Mean Corpuscular Volume 72.2 fL (80.0-100.0); Monocytes # (auto) 0.5 10 ^3/uL (0-1.3); Monocytes % (auto) 4.3 % (0.0-12.0); Neutrophils # (auto) 11.3 10 ^3/uL (1.6-8.6); Neutrophils % (auto) 89.4 % (37.0-80.0); Red Blood Cells 4.28 10^6/uL (4.0-5.20)
[2022-10-31] MEDS: MIDAZOLAM DRIP 50 mg/50mL 50 ML IV SCH (08:06)
[2022-10-31] MEDS: cefTRIAXone 1GM/50ML D5W 50 ML IV SCH (08:10)
[2022-10-31] MEDS: PANTOPRAZOLE 40 MG/10 ML VIAL INJ IV SCH (09:27)
[2022-10-31] MEDS: SODIUM CHLOR 0.9% PF (SALINE LOCK) 10ML VIAL/SYR IV SCH ×2 (09:28→21:54)
[2022-10-31] MEDS: methylPREDNISolone SOD SUCC 125 MG/2 ML VL IV SCH ×2 (09:28→21:54)
[2022-10-31] MEDS: AZITHROMYCIN 500MG/ 250ML 250 ML IV SCH (09:31)
[2022-10-31] MEDS: ENOXAPARIN SOD 40 MG/0.4 ML SYRINGE SC SCH ×2 (09:31→21:54)
[2022-10-31] MEDS: NYSTATIN TOPICAL POWDER 15GM TOP SCH ×2 (09:32→22:22)
[2022-10-31] MEDS: NOREPINEPHRINE 8 MG/250ML KIT 250 ML IV SCH (11:00)
[2022-11-01] VITALS (28 sets, daily range): BP systolic 93–162; BP diastolic 39–105
[2022-11-01] MEDS: IPRATROPIUM BROM 0.5 MG/2.5ML INH SOL NEB SCH ×5 (00:02→23:45)
[2022-11-01] MEDS: ALBUTEROL SULF 2.5 MG/0.5ML(0.5%) NEB SOLN NEB SCH ×5 (00:02→23:45)
[2022-11-01] MEDS: ACCU-CHEK COMFORT CURVE STRIP VI SCH ×5 (05:59→23:47)
[2022-11-01] MEDS: FUROSEMIDE 20 MG/2 ML VIAL IV SCH ×2 (05:59→17:56)
[2022-11-01] MEDS: InsuLIN REG 1unit/0.01ml Soln (100units/ml) SC SCH ×5 (06:00→23:46)
[2022-11-01 06:08] LABS: Eosinophils # (auto) 0 10 ^3/uL (0-0.8); Lymphocytes # (auto) 0.7 10 ^3/uL (0.4-5.4); Monocytes # (auto) 0.6 10 ^3/uL (0-1.3); Nucleated Red Blood Cells % 0.1 %
[2022-11-01 06:11] LABS: Basophils # (auto) 0 10 ^3/uL (0-0.2); Hematocrit 29.9 % (36.0-46.0); Hemoglobin 9.5 g/dL (12.2-16.2); Lymphocytes % (auto) 7.1 % (10.0-50.0); Mean Corpuscular Hemoglobin 23.3 pg (28.0-32.0); Mean Corpuscular Hgb Conc. 31.7 g/dL (32.0-36.0); Mean Corpuscular Volume 73.4 fL (80.0-100.0); Monocytes % (auto) 6.3 % (0.0-12.0); Neutrophils # (auto) 8.7 10 ^3/uL (1.6-8.6); Neutrophils % (auto) 86.6 % (37.0-80.0); Red Blood Cells 4.08 10^6/uL (4.0-5.20)
[2022-11-01 07:36] LABS: Anion Gap 7 (5-15); Blood Urea Nitrogen 64 mg/dL (7-18); Carbon Dioxide 32 mmol/L (21-32); Chloride 104 mmol/L (98-107); Glucose 139 mg/dL (74-106); Potassium 3.8 mmol/L (3.5-5.1); Sodium 143 mmol/L (136-145)
[2022-11-01 07:37] LABS: BUN/Creatinine Ratio 46.7 (10.0-20.0); Calcium 8.8 mg/dL (8.5-10.1); GFR African American 49 mL/min; GFR Non-African American 40 mL/min
[2022-11-01] MEDS: MIDAZOLAM DRIP 50 mg/50mL 50 ML IV SCH (09:00)
[2022-11-01] MEDS: methylPREDNISolone SOD SUCC 125 MG/2 ML VL IV SCH ×2 (09:31→21:14)
[2022-11-01] MEDS: SODIUM CHLOR 0.9% PF (SALINE LOCK) 10ML VIAL/SYR IV SCH ×2 (09:31→21:14)
[2022-11-01] MEDS: PANTOPRAZOLE 40 MG/10 ML VIAL INJ IV SCH (09:31)
[2022-11-01] MEDS: ENOXAPARIN SOD 40 MG/0.4 ML SYRINGE SC SCH ×2 (09:32→21:14)
[2022-11-01] MEDS: NYSTATIN TOPICAL POWDER 15GM TOP SCH ×2 (10:18→21:15)
[2022-11-01] MEDS: NOREPINEPHRINE 8 MG/250ML KIT 250 ML IV SCH (11:00)
[2022-11-02] VITALS (16 sets, daily range): BP systolic 109–148; BP diastolic 50–95
[2022-11-02] MEDS: ACCU-CHEK COMFORT CURVE STRIP VI SCH ×4 (05:41→23:44)
[2022-11-02] MEDS: FUROSEMIDE 20 MG/2 ML VIAL IV SCH (05:41)
[2022-11-02 05:52] LABS: Basophils # (auto) 0 10 ^3/uL (0-0.2); Eosinophils # (auto) 0 10 ^3/uL (0-0.8); Hemoglobin 8.6 g/dL (12.2-16.2); Mean Corpuscular Hemoglobin 22.6 pg (28.0-32.0); Monocytes # (auto) 0.5 10 ^3/uL (0-1.3)
[2022-11-02] MEDS: InsuLIN REG 1unit/0.01ml Soln (100units/ml) SC SCH ×4 (05:53→23:48)
[2022-11-02 06:00] LABS: Basophils % (auto) 0.2 % (0.0-2.0); Hematocrit 27.8 % (36.0-46.0); Lymphocytes # (auto) 0.7 10 ^3/uL (0.4-5.4); Lymphocytes % (auto) 9.5 % (10.0-50.0); Mean Corpuscular Hgb Conc. 30.9 g/dL (32.0-36.0); Mean Corpuscular Volume 73.1 fL (80.0-100.0); Monocytes % (auto) 6.2 % (0.0-12.0); Neutrophils # (auto) 6.2 10 ^3/uL (1.6-8.6); Neutrophils % (auto) 84.1 % (37.0-80.0); Red Cell Distribution Width 18.7 % (11.8-14.3); White Blood Cell 7.4 10^3/uL (4.4-10.8)
[2022-11-02 06:04] LABS: Potassium 3.3 mmol/L (3.5-5.1)
[2022-11-02 06:09] LABS: BUN/Creatinine Ratio 48.8 (10.0-20.0)
[2022-11-02] MEDS: ALBUTEROL SULF 2.5 MG/0.5ML(0.5%) NEB SOLN NEB SCH ×4 (06:09→23:58)
[2022-11-02] MEDS: IPRATROPIUM BROM 0.5 MG/2.5ML INH SOL NEB SCH ×4 (06:09→23:58)
[2022-11-02] MEDS: MIDAZOLAM DRIP 50 mg/50mL 50 ML IV SCH (09:00)
[2022-11-02] MEDS ORDERED: POTASSIUM EFFERVESENT TAB 25 MEQ PO ONE (10:15)
[2022-11-02] MEDS: NOREPINEPHRINE 8 MG/250ML KIT 250 ML IV SCH (11:00)
[2022-11-02] MEDS: PANTOPRAZOLE 40 MG/10 ML VIAL INJ IV SCH (11:07)
[2022-11-02] MEDS: ENOXAPARIN SOD 40 MG/0.4 ML SYRINGE SC SCH ×2 (11:08→21:26)
[2022-11-02] MEDS: SODIUM CHLOR 0.9% PF (SALINE LOCK) 10ML VIAL/SYR IV SCH ×2 (11:08→21:26)
[2022-11-02] MEDS: methylPREDNISolone SOD SUCC 125 MG/2 ML VL IV SCH ×2 (11:08→21:26)
[2022-11-02] MEDS: NYSTATIN TOPICAL POWDER 15GM TOP SCH ×2 (11:09→21:26)
[2022-11-02] MEDS: ACETAMINOPHEN 325 MG TAB PO PRN (21:32)
[2022-11-03] MEDS ORDERED: IBUPROFEN 600 MG TAB PO PRN (00:15)
[2022-11-03 04:48] VITALS: BP 134/72
[2022-11-03] MEDS: ACCU-CHEK COMFORT CURVE STRIP VI SCH ×3 (05:52→17:59)
[2022-11-03 05:53] LABS: Basophils # (auto) 0 10 ^3/uL (0-0.2); Basophils % (auto) 0.1 % (0.0-2.0); Eosinophils # (auto) 0 10 ^3/uL (0-0.8); Hematocrit 27.8 % (36.0-46.0); Hemoglobin 8.8 g/dL (12.2-16.2); Lymphocytes # (auto) 0.5 10 ^3/uL (0.4-5.4); Mean Corpuscular Volume 72.4 fL (80.0-100.0); Monocytes # (auto) 0.4 10 ^3/uL (0-1.3); Nucleated Red Blood Cells % 0.1 %; Red Blood Cells 3.84 10^6/uL (4.0-5.20); White Blood Cell 6.4 10^3/uL (4.4-10.8)
[2022-11-03] MEDS: InsuLIN REG 1unit/0.01ml Soln (100units/ml) SC SCH ×3 (05:55→18:00)
[2022-11-03 05:56] LABS: Lymphocytes % (auto) 8.6 % (10.0-50.0); Mean Corpuscular Hgb Conc. 31.7 g/dL (32.0-36.0); Monocytes % (auto) 6.3 % (0.0-12.0); Neutrophils # (auto) 5.4 10 ^3/uL (1.6-8.6)
[2022-11-03 06:04] LABS: Calcium 9.1 mg/dL (8.5-10.1); Potassium 3.7 mmol/L (3.5-5.1)
[2022-11-03] MEDS: IPRATROPIUM BROM 0.5 MG/2.5ML INH SOL NEB SCH ×2 (07:36→11:02)
[2022-11-03] MEDS: ALBUTEROL SULF 2.5 MG/0.5ML(0.5%) NEB SOLN NEB SCH ×2 (07:36→11:02)
[2022-11-03 08:39] VITALS: BP 170/16
[2022-11-03] MEDS: PANTOPRAZOLE 40 MG/10 ML VIAL INJ IV SCH (10:02)
[2022-11-03] MEDS: SODIUM CHLOR 0.9% PF (SALINE LOCK) 10ML VIAL/SYR IV SCH ×2 (10:02→21:40)
[2022-11-03] MEDS: methylPREDNISolone SOD SUCC 125 MG/2 ML VL IV SCH (10:02)
[2022-11-03] MEDS: ENOXAPARIN SOD 40 MG/0.4 ML SYRINGE SC SCH ×2 (10:03→21:40)
[2022-11-03] MEDS: FUROSEMIDE 20 MG/2 ML VIAL IV SCH (10:03)
[2022-11-03] MEDS: NYSTATIN TOPICAL POWDER 15GM TOP SCH ×2 (10:03→21:41)
[2022-11-03] MEDS: ACETAMINOPHEN 325 MG TAB PO PRN ×2 (10:19→21:40)
[2022-11-03 13:28] VITALS: BP 168/89
[2022-11-03 16:38] VITALS: BP 153/67
[2022-11-03 22:00] VITALS: BP 183/87
[2022-11-04] MEDS: IPRATROPIUM BROM 0.5 MG/2.5ML INH SOL NEB SCH ×6 (00:22→23:29)
[2022-11-04] MEDS: ALBUTEROL SULF 2.5 MG/0.5ML(0.5%) NEB SOLN NEB SCH ×6 (00:22→23:29)
[2022-11-04] MEDS: ACCU-CHEK COMFORT CURVE STRIP VI SCH ×4 (00:24→17:53)
[2022-11-04] MEDS: InsuLIN REG 1unit/0.01ml Soln (100units/ml) SC SCH ×4 (00:25→18:00)
[2022-11-04 00:28] VITALS: BP 149/89
[2022-11-04 09:00] VITALS: BP 167/78
[2022-11-04] MEDS: PANTOPRAZOLE 40 MG/10 ML VIAL INJ IV SCH (09:39)
[2022-11-04] MEDS: FUROSEMIDE 20 MG/2 ML VIAL IV SCH (09:39)
[2022-11-04] MEDS: SODIUM CHLOR 0.9% PF (SALINE LOCK) 10ML VIAL/SYR IV SCH ×2 (09:39→21:29)
[2022-11-04] MEDS: NYSTATIN TOPICAL POWDER 15GM TOP SCH ×2 (09:40→21:30)
[2022-11-04] MEDS: ENOXAPARIN SOD 40 MG/0.4 ML SYRINGE SC SCH ×2 (09:40→21:28)
[2022-11-04 13:00] VITALS: BP 138/71
[2022-11-04 17:00] VITALS: BP 146/73
[2022-11-04] MEDS: ACETAMINOPHEN 325 MG TAB PO PRN (17:30)
[2022-11-04 22:00] VITALS: BP 115/62
[2022-11-05] MEDS: ACCU-CHEK COMFORT CURVE STRIP VI SCH ×5 (00:07→23:27)
[2022-11-05 05:00] VITALS: BP 136/51
[2022-11-05] MEDS: InsuLIN REG 1unit/0.01ml Soln (100units/ml) SC SCH ×5 (06:00→23:28)
[2022-11-05] MEDS: IPRATROPIUM BROM 0.5 MG/2.5ML INH SOL NEB SCH ×4 (06:16→23:56)
[2022-11-05] MEDS: ALBUTEROL SULF 2.5 MG/0.5ML(0.5%) NEB SOLN NEB SCH ×4 (06:16→23:56)
[2022-11-05 09:00] VITALS: BP 144/70
[2022-11-05] MEDS: SODIUM CHLOR 0.9% PF (SALINE LOCK) 10ML VIAL/SYR IV SCH ×2 (09:35→21:08)
[2022-11-05] MEDS: ENOXAPARIN SOD 40 MG/0.4 ML SYRINGE SC SCH ×2 (09:35→21:08)
[2022-11-05] MEDS: NYSTATIN TOPICAL POWDER 15GM TOP SCH ×2 (09:35→21:09)
[2022-11-05] MEDS: PANTOPRAZOLE 40 MG/10 ML VIAL INJ IV SCH (09:35)
[2022-11-05] MEDS: FUROSEMIDE 20 MG/2 ML VIAL IV SCH (09:35)
[2022-11-05 13:00] VITALS: BP 140/76
[2022-11-05 13:01] VITALS: BP 140/68
[2022-11-05 17:00] VITALS: BP 112/61
[2022-11-05 22:00] VITALS: BP 115/61
[2022-11-06 05:00] VITALS: BP 118/60
[2022-11-06] MEDS: InsuLIN REG 1unit/0.01ml Soln (100units/ml) SC SCH ×3 (06:00→18:00)
[2022-11-06] MEDS: ACCU-CHEK COMFORT CURVE STRIP VI SCH ×3 (06:03→18:17)
[2022-11-06] MEDS: IPRATROPIUM BROM 0.5 MG/2.5ML INH SOL NEB SCH ×3 (07:20→18:57)
[2022-11-06] MEDS: ALBUTEROL SULF 2.5 MG/0.5ML(0.5%) NEB SOLN NEB SCH ×3 (07:21→18:57)
[2022-11-06 09:00] VITALS: BP 136/69
[2022-11-06] MEDS: PANTOPRAZOLE 40 MG/10 ML VIAL INJ IV SCH (11:05)
[2022-11-06] MEDS: SODIUM CHLOR 0.9% PF (SALINE LOCK) 10ML VIAL/SYR IV SCH (11:05)
[2022-11-06] MEDS: FUROSEMIDE 20 MG/2 ML VIAL IV SCH (11:05)
[2022-11-06] MEDS: ENOXAPARIN SOD 40 MG/0.4 ML SYRINGE SC SCH (11:05)
[2022-11-06 13:00] VITALS: BP 111/78
[2022-11-06 17:02] VITALS: BP 129/60
== END 2022-11-06 20:20 | disposition home health service (06) | DRG 870 ==
LOC: EDBD 07:05 → ER 07:05 → MERGE 10:15 → TELE 10:15 → ICU CENTRL 13:01 → TELE-EAST 11-02 08:29
PROVIDERS: ADMIT Registered Nurse; ATTEND Internal Medicine Pulmonary Disease
PROC: 5A1955Z Respiratory Ventilation, Greater than 96 Consecutive Hours (ICD-10-PCS; principal; 2022-10-24)
PROC: 0BH17EZ Insertion of Endotracheal Airway into Trachea, Via Natural or Artificial Opening (ICD-10-PCS; 2022-10-24)
PROC: 5A09357 Assistance with Respiratory Ventilation, Less than 24 Consecutive Hours, Continuous Positive Airway Pressure (ICD-10-PCS; 2022-10-24)
PROC: 02HV33Z Insertion of Infusion Device into Superior Vena Cava, Percutaneous Approach (ICD-10-PCS; 2022-10-24)
PROC: B548ZZA Ultrasonography of Superior Vena Cava, Guidance (ICD-10-PCS; 2022-10-24)
PROC: 0B9J8ZZ Drainage of Left Lower Lung Lobe, Via Natural or Artificial Opening Endoscopic (ICD-10-PCS; 2022-10-25)
PROC: 0B9F8ZZ Drainage of Right Lower Lung Lobe, Via Natural or Artificial Opening Endoscopic (ICD-10-PCS; 2022-10-25)
PROC: 5A09357 Assistance with Respiratory Ventilation, Less than 24 Consecutive Hours, Continuous Positive Airway Pressure (ICD-10-PCS; 2022-10-30)
PROC: 5A09357 Assistance with Respiratory Ventilation, Less than 24 Consecutive Hours, Continuous Positive Airway Pressure (ICD-10-PCS; 2022-10-31)
PROC: 5A09357 Assistance with Respiratory Ventilation, Less than 24 Consecutive Hours, Continuous Positive Airway Pressure (ICD-10-PCS; 2022-11-01)
PROC: 5A09357 Assistance with Respiratory Ventilation, Less than 24 Consecutive Hours, Continuous Positive Airway Pressure (ICD-10-PCS; 2022-11-02)
DX: A41.9 Sepsis, unspecified organism (principal); I50.33 Acute on chronic diastolic (congestive) heart failure; J18.9 Pneumonia, unspecified organism; J96.21 Acute and chronic respiratory failure with hypoxia; R65.21 Severe sepsis with septic shock; N17.0 Acute kidney failure with tubular necrosis; J96.22 Acute and chronic respiratory failure with hypercapnia; J44.1 Chronic obstructive pulmonary disease with (acute) exacerbation; N39.0 Urinary tract infection, site not specified; I13.0 Hypertensive heart and chronic kidney disease with heart failure and stage 1 through stage 4 chronic kidney disease, or unspecified chronic kidney disease; J44.0 Chronic obstructive pulmonary disease with (acute) lower respiratory infection; J98.11 Atelectasis; Z68.43 Body mass index [BMI] 50.0-59.9, adult; E87.3 Alkalosis; Z20.822 Contact with and (suspected) exposure to COVID-19; N18.9 Chronic kidney disease, unspecified; L30.8 Other specified dermatitis; E87.6 Hypokalemia; E11.22 Type 2 diabetes mellitus with diabetic chronic kidney disease; E66.01 Morbid (severe) obesity due to excess calories; D63.1 Anemia in chronic kidney disease; E87.5 Hyperkalemia; I48.0 Paroxysmal atrial fibrillation; D69.6 Thrombocytopenia, unspecified; Z90.49 Acquired absence of other specified parts of digestive tract; Z79.84 Long term (current) use of oral hypoglycemic drugs
CPT/HCPCS: 31500; 31645; 36415; 36569; 36600; 71045; 71250; 76775; 80048; 80053; 80061; 80307; 81001; 82306; 82570; 82805; 82962; 83036; 83540; 83550; 83605; 83735; 83880; 83970; 84100; 84156; 84300; 84443; 84484; 85025; 85379; 85610; 85730; 87040; 87070; 87081; 87086; 87088; 87186; 87205; 87426; 93005; 93306; 93970; 94002; 94003; 94640; 94644; 94660; 96365; 96367; 96368; 96375; 97110; 97163; 97530; 99291; C9113; G0378; J0171; J0696; J1815; J2250; J2704; J3480; J7060